=== PATIENT | female | born 1990 | race Caucasian/White ===

== ENCOUNTER 2021-06-06 17:07 | Emergency (ER) | payer MEDICAID ==
[~2021-06-06] VITALS: Ht 160 cm; Wt 65.0 kg
--- OUTSIDE RECORDS SUMMARY | 2021-06-06 17:13 | XMS REPORT | Clinical Summary ---
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 As needed for pain Active tiZANidine (ZANAFLEX) 4 Take 1 tablet 20 tablet 0 06/28/201 MG tablet (4 mg total) 6 by mouth every 6 (six) hours as needed (as needed for muscle spasm or pain). Active Problems Not on file Social History Date Tobacco Use Types Packs/Day Years Used Current Every Day Smoker Cigarettes 1 Tobacco Cessation: Ready to Quit: Yes Comments Alcohol Use Standard Drinks/Week occasional Yes 0 (1 standard drink = 0.6 o z pure alcohol) Sex Assigned at Date Recorded Not on file Last Filed Vital Signs Reading Time Taken Comments Vital Sign 106/53 06/29/2016 12:28 AM CDT Blood Pressure 77 06/29/2016 12:28 AM CDT Pulse 37.1 C (98.7 F) 06/28/2016 10:33 PM CDT Temperature 18 06/29/2016 12:28 AM CDT Respiratory Rate 96% 06/29/2016 12:28 AM CDT Oxygen Saturation - - Inhaled Oxygen Concentration 79.4 kg (175 lb) 06/28/2016 10:33 PM CDT Weight 160 cm (5' 3") 06/28/2016 10:33 PM CDT Height 31 06/28/2016 10:33 PM CDT Body Mass Index Plan of Treatment Health Maintenance Due Date Last Done Comments Td/Tdap# 1992 Tobacco Cessation 1992 Counseling # Cervical Cancer Screening 2013 via Pap Smear Influenza Vaccine (#1) 2021 Pneumococcal Vaccine: Aged Out No longer eligib le based on patient's age to Pediatrics (0 to 5 Years) complete this topic and At-Risk Patients (6 to 64 Years) Results Not on filefrom Last 3 Months Insurance Type Payer Benefit Subscriber ID Effective Phone Address Plan / Dates Group [place] ([place]) [place] [id number] 2016 [employer] -Present [facility] [id number] 20 ([place]) [facility] Angie Weiss Personal/F Self 1990 [address] [facility] (Home) [place] [address] Advance Directives For more information, please contact: [phone] Patient Support Dba Explanation Type Date Recorded Advance Directives and Living Will Power of Golf Cart Attendant
[2021-06-06] MEDS ORDERED: KETOROLAC 30 MG/ML VIAL IVP ONE (18:00)
--- NOTE | 2021-06-06 18:01 | ED Abdominal Pain ---
General Chief Complaint: Abdominal/GI Problems Stated Complaint: LOWER R ABD PAIN Nursing Triage Note: Pt ambulatory into ER from work with complaint of Lower R. Abdominal pain x9 days. Pt states that she was seen at [facility] yesterday for it and minimal was done. Pt states that she was told that he ER would be who would need to look at her appendix. Pt states that today pain is at a 7/10. Denies issues using bathroom. Source of Information: Patient Exam Limitations: No Limitations History of Present Illness Date Seen by Provider: Jun 06, 2021 Time Seen by Provider: 18:00 Initial Comments To ER with right lower quadrant abdominal pain x9 days. She rates the pain 7 out of 10. No nausea no vomiting no fever no chills. She has an IUD and saw [facility] last week and was told it looked normal. No vaginal discharge. Timing/Duration: 1 Week Severity/Quality: Moderate Location: RLQ Radiation: No Radiation Associated Symptoms: Denies Symptoms Allergies and Home Medications Allergies Coded Allergies: No Known Drug Allergies (Unverified , 06/06/21) Patient Home Medication List Home Medication List Reviewed: Yes Review of Systems Review of Systems Constitutional: see HPI EENTM: No Symptoms Reported Respiratory: No Symptoms Reported Cardiovascular: No Symptoms Reported Gastrointestinal: See HPI, Abdominal Pain Genitourinary: No Symptoms Reported Musculoskeletal: no symptoms reported Skin: no symptoms reported Psychiatric/Neurological: No Symptoms Reported Endocrine: No Symptoms Reported Hematologic/Lymphatic: No Symptoms Reported Past Eiwkazi-Ymtqmh-Nialku Hx Patient Social History Tobacco Use?: Yes Tobacco type used: Cigarettes Smoking Status: Current Everyday Smoker Use of E-Cig and/or Vaping dev: No Substance use?: Yes Substance type: Marijuana Substance frequency: Couple times a week Alcohol Use?: Yes Alcohol type: Beer, Hard Liquor Alcohol Frequency: Couple times a week Pt feels they are or have been: No Immunizations Up To Date Influenza Vaccine Up-to-Date: No; Not Current Physical Exam Vital Signs Vital Signs - First Documented 06/06/21 17:14 Temp 36.9 Pulse 78 Resp 16 B/P (MAP) 133/70 (91) Pulse Ox 98 O2 Delivery Room Air Capillary Refill : Less Than 3 Seconds Height/Weight/BMI Height: '" Weight: lbs. oz. kg; 25.00 BMI Method: General Appearance: WD/WN, no apparent distress Neck: non-tender, full range of motion Respiratory: normal breath sounds, no respiratory distress, no accessory muscle use Cardiovascular: regular rate, rhythm, no murmur Gastrointestinal: normal bowel sounds, soft, tenderness Extremities: normal range of motion, non-tender Neurologic/Psychiatric: alert, normal mood/affect, oriented x 3 Skin: normal color, warm/dry Progress/Results/Core Measures Results/Orders Lab Results Laboratory Tests Test 06/06/21 18:18 06/06/21 19:08 Range/Units White Blood Count 6.7 4.3-11.0 10^3/uL Red Blood Count 4.06 3.80-5.11 10^6/uL Hemoglobin 12.3 11.5-16.0 g/dL Hematocrit 37 35-52 % Mean Corpuscular Volume 92 80-99 fL Mean Corpuscular Hemoglobin 30 25-34 pg Mean Corpuscular Hemoglobin Concent 33 32-36 g/dL Red Cell Distribution Width 13.7 10.0-14.5 % Platelet Count 248 130-400 10^3/uL Mean Platelet Volume 9.0 9.0-12.2 fL Immature Granulocyte % (Auto) 0 % Neutrophils (%) (Auto) 51 42-75 % Lymphocytes (%) (Auto) 40 12-44 % Monocytes (%) (Auto) 7 0-12 % Eosinophils (%) (Auto) 2 0-10 % Basophils (%) (Auto) 0 0-10 % Neutrophils # (Auto) 3.4 1.8-7.8 10^3/uL Lymphocytes # (Auto) 2.7 1.0-4.0 10^3/uL Monocytes # (Auto) 0.5 0.0-1.0 10^3/uL Eosinophils # (Auto) 0.1 0.0-0.3 10^3/uL Basophils # (Auto) 0.0 0.0-0.1 10^3/uL Immature Granulocyte # (Auto) 0.0 0.0-0.1 10^3/uL Sodium Level 141 135-145 MMOL/L Potassium Level 3.7 3.6-5.0 MMOL/L Chloride Level 110 H 98-107 MMOL/L Carbon Dioxide Level 20 L 21-32 MMOL/L Anion Gap 11 5-14 MMOL/L Blood Urea Nitrogen 13 7-18 MG/DL Creatinine 0.80 0.60-1.30 MG/DL Estimat Glomerular Filtration Rate 85 BUN/Creatinine Ratio 16 Glucose Level 72 70-105 MG/DL Calcium Level 8.7 8.5-10.1 MG/DL Corrected Calcium 9.1 8.5-10.1 MG/DL Total Bilirubin 0.4 0.1-1.0 MG/DL Aspartate Amino Transf (AST/SGOT) 14 5-34 U/L Alanine Aminotransferase (ALT/SGPT) 18 0-55 U/L Alkaline Phosphatase 49 40-136 U/L C-Reactive Protein High Sensitivity 0.14 0.00-0.50 MG/DL Total Protein 5.6 L 6.4-8.2 GM/DL Albumin 3.5 3.2-4.5 GM/DL Serum Test, Qualitative NEGATIVE NEGATIVE Urine Color YELLOW Urine Clarity CLEAR Urine pH 6.0 5-9 Urine Specific [place] >=1.030 1.016-1.022 Urine Protein TRACE H NEGATIVE Urine Glucose (UA) NEGATIVE NEGATIVE Urine Ketones NEGATIVE NEGATIVE Urine Nitrite NEGATIVE NEGATIVE Urine Bilirubin 1+ H NEGATIVE Urine Urobilinogen 1.0 < = 1.0 MG/DL Urine Leukocyte Esterase NEGATIVE NEGATIVE Urine RBC (Auto) NEGATIVE NEGATIVE Urine RBC NONE /HPF Urine WBC 5-10 H /HPF Urine Squamous Epithelial Cells 2-5 /HPF Urine Renal Epithelial Cells 0-2 /HPF Urine Crystals NONE /LPF Urine Bacteria MODERATE H /HPF Urine Casts NONE /LPF Urine Mucus NEGATIVE /LPF Urine Culture Indicated YES My Orders Orders - DENISE TAYLOR [employer] Cbc With Automated Diff (06/06/21 17:59) Hs C Reactive Protein (06/06/21 17:59) Comprehensive Metabolic Panel (06/06/21 17:59) Ua Culture If Indicated (06/06/21 17:59) Ed Iv/Invasive Line Start (06/06/21 17:59) Ct Abd/Pelv W (Appendicitis) (06/06/21 17:59) Ketorolac Injection (Toradol Injection) (06/06/21 18:00) Hcg,Qualitative Serum (06/06/21 18:45) Iohexol Injection (Omnipaque 350 Mg/Ml 1 (06/06/21 19:30) Received Contrast (Hold Metformin- Contr (06/06/21 19:30) Ns (Ivpb) (Sodium Chloride 0.9% Ivpb Bag (06/06/21 19:30) Urine Culture (06/06/21 19:08) Medications Given in ED Current Medications Medications Dose Ordered Sig/Sanjay Route Start Time Stop Time Status Last Admin Dose Admin Ketorolac Tromethamine 15 mg ONCE ONCE IVP 06/06/21 18:00 06/06/21 18:01 DC 06/06/21 18:18 15 MG Vital Signs/I&O 06/06/21 17:14 Temp 36.9 Pulse 78 Resp 16 B/P (MAP) 133/70 (91) Pulse Ox 98 O2 Delivery Room Air Blood Pressure Mean: 91 Departure Impression Primary Impression: Urinary tract infection Disposition: HOME, SELF-CARE Condition: Stable Departure-Patient Inst. Decision time for Depature: 00:00 Referrals: NO,LOCAL PHYSICIAN (PCP/Family) Primary Care Physician Patient Instructions: Urinary Tract Infection, Adult (DC) Scripts Sulfamethoxazole/Trimethoprim (Bactrim Ds Tablet) 1 Each Tablet 1 EACH PO BID, #10 TAB Prov: DENISE TAYLOR APRN 06/06/21 DENISE TAYLOR APRN Jun 06, 2021 18:01
[2021-06-06 18:24] LABS: BASOPHILS % (AUTO) 0 % (0-10); EOSINOPHILS # (AUTO) 0.1 10^3/uL (0.0-0.3); EOSINOPHILS % (AUTO) 2 % (0-10); HEMATOCRIT 37 % (35-52); HEMOGLOBIN 12.3 g/dL (11.5-16.0); LYMPHOCYTES # (AUTO) 2.7 10^3/uL (1.0-4.0); LYMPHOCYTES % (AUTO) 40 % (12-44); MEAN CORPUSCULAR HEMOGLOBIN 30 pg (25-34); MEAN CORPUSCULAR HGB CONC 33 g/dL (32-36); MEAN CORPUSCULAR VOLUME 92 fL (80-99); MONOCYTES # (AUTO) 0.5 10^3/uL (0.0-1.0); MONOCYTES % (AUTO) 7 % (0-12); NEUTROPHILS # (AUTO) 3.4 10^3/uL (1.8-7.8); NEUTROPHILS % (AUTO) 51 % (42-75); PLATELET COUNT 248 10^3/uL (130-400); WHITE BLOOD COUNT 6.7 10^3/uL (4.3-11.0)
[2021-06-06 18:35] LABS: ALBUMIN 3.5 GM/DL (3.2-4.5); POTASSIUM 3.7 MMOL/L (3.6-5.0)
[2021-06-06 18:37] LABS: CALCIUM 8.7 MG/DL (8.5-10.1)
[2021-06-06 18:38] LABS: TOTAL PROTEIN 5.6 GM/DL (6.4-8.2)
[2021-06-06 18:39] LABS: BILIRUBIN,TOTAL 0.4 MG/DL (0.1-1.0)
[2021-06-06 18:41] LABS: CREATININE SERUM 0.8 MG/DL (0.60-1.30)
[2021-06-06 19:14] LABS: BILIRUBIN,URINE 1+ (NEGATIVE); CLARITY,URINE CLEAR; COLOR,URINE YELLOW; GLUCOSE, URINE (UA) NEGATIVE (NEGATIVE); KETONES,URINE NEGATIVE (NEGATIVE); LEUKOCYTE ESTERASE ,URINE NEGATIVE (NEGATIVE); NITRITE,URINE NEGATIVE (NEGATIVE); PROTEIN,URINE TRACE (NEGATIVE)
[2021-06-06 19:22] LABS: BACTERIA,URINE MODERATE /HPF; RENAL EPITHELIAL CELLS,URINE 0-2 /HPF
--- NOTE | 2021-06-06 19:26 | Diagnostic Imaging Report ---
PROCEDURE: CT abdomen and pelvis with contrast, rule out appendicitis. TECHNIQUE: Multiple contiguous axial images were obtained through the abdomen and pelvis after the administration of intravenous contrast. All CT scans use one or more of the following dose optimizing techniques: automated exposure control, MA and/or KvP adjustment based on patient size and exam type or iterative reconstruction. INDICATION: Right lower quadrant pain. FINDINGS: The heart size is normal. The lung bases are clear. The liver is normal in size without focal lesions. Gallbladder is unremarkable. There is no biliary ductal dilatation. Spleen is normal. The pancreas, adrenal glands and kidneys are unremarkable. The aorta is nonaneurysmal. The bowel gas pattern is nonspecific. There is no free air. There is no ascites. There are no focal inflammatory changes. The appendix is normal. There is an IUD in the uterus. Bladder is normal. There is no pelvic mass, adenopathy or free fluid. The osseous structures are unremarkable. IMPRESSION: 1. No acute abnormality in the abdomen or pelvis. Specifically, the appendix is normal. 2. There is an IUD in the uterus. Dictated by: Dictated on workstation # [id number]
[2021-06-06] MEDS ORDERED: SULF1TAB38 PO (19:28)
[2021-06-06] MEDS ORDERED: HOLD METFORMIN - RECEIVED CONTRAST 20 ML VIAL IV SCH (19:30)
[2021-06-06] MEDS ORDERED: IOHEXOL 350 MG/ML 100 ML (OMNIPAQUE 350) VIAL IV ONE (19:30)
[2021-06-06] MEDS ORDERED: NS 100 ML (IVPB) BAG IV ONE (19:30)
[2021-06-06] MEDS ORDERED: TRIM/SULFAMETH 160/800 (SEPTRA DS) TAB PO ONE (19:45)
[2021-06-06 20:37] VITALS: BP 131/70
== END 2021-06-06 19:40 | disposition home or self-care (01) ==
LOC: ER 17:10
DX: N39.0 Urinary tract infection, site not specified (principal); F17.210 Nicotine dependence, cigarettes, uncomplicated
CPT/HCPCS: 36415; 74177; 80053; 81000; 84703; 85025; 86141; 87088

== ENCOUNTER 2021-11-09 10:14 | Emergency (ER) | payer MEDICAID ==
[~2021-11-09] VITALS: Ht 160 cm; Wt 81.6 kg
[~2021-11-09 10:14] MED LIST: SULF1TAB38 PO
--- NOTE | 2021-11-09 10:35 | ED GU-Female ---
General Stated Complaint: GROIN SWELLING Source: patient Exam Limitations: no limitations History of Present Illness Date Seen by Provider: Nov 09, 2021 Time Seen by Provider: 10:19 Initial Comments Patient presents to the ER by private conveyance from home with chief complaint of noticing this morning a painful red swollen hot nodule on her inner labia on the left side. No drainage. No fevers chills nausea vomiting dysuria or discharge. She is never had this before. She trims with scissors and does not shave. Allergies and Home Medications Allergies Coded Allergies: No Known Drug Allergies (Unverified , 06/06/21) Patient Home Medication List Home Medication List Reviewed: Yes Sulfamethoxazole/Trimethoprim (Bactrim Ds Tablet) 1 Each Tablet, 1 EACH PO BID Prescribed by: DENISE TAYLOR on 06/06/211927 Sulfamethoxazole/Trimethoprim (Bactrim Ds Tablet) 1 Each Tablet, 1 EACH PO BID Prescribed by: MARINA MASSEY on 11/09/21 1042 Review of Systems Review of Systems Constitutional: No chills, No diaphoresis EENTM: No ear pain, No eye pain Respiratory: No cough, No short of breath Cardiovascular: No chest pain, No edema Gastrointestinal: No abdominal pain, No nausea, No vomiting Genitourinary: see HPI All Other Systemes Reviewed Negative Unless Noted: Yes Past Icwzrdm-Bboxec-Bqchek Hx Patient Social History Tobacco Use?: No Use of E-Cig and/or Vaping dev: No Physical Exam Vital Signs Vital Signs - First Documented 11/09/21 10:31 Pulse 100 Resp 18 B/P (MAP) 130/51 (77) Pulse Ox 98 Capillary Refill : Height, Weight, BMI Height: '" Weight: lbs. oz. kg; 25.00 BMI Method: General Appearance: WD/WN, no apparent distress HEENT: PERRL/EOMI, pharynx normal Neck: full range of motion, normal inspection Cardiovascular: normal peripheral pulses, regular rate, rhythm Respiratory: no respiratory distress, no accessory muscle use Pelvic: other (Left inner labia abscess with baker pointing approximately 1.5 cm diameter firm fluctuant) Procedures/Interventions I&D : Site: Left labia minora Blade Size: 25-gauge needle I & D Procedure: betadine prep (Chlorhexidine) Progress Surface disinfectant with chlorhexidine followed by a 1/2 inch 25-gauge needle with 0.25 cc of lidocaine and expressed about 1.5 cc of thin purulent material. Patient tolerated the procedure. Progress/Results/Core Measures Suspected Sepsis SIRS Temperature: Pulse: Respiratory Rate: Blood Pressure / Mean: Results/Orders Vital Signs/I&O 11/09/21 10:31 Pulse 100 Resp 18 B/P (MAP) 130/51 (77) Pulse Ox 98 Capillary Refill : Progress Note : Time: 10:42 Progress Note Patient states she has some chronic cyst that swell up and drain on her shoulder and back likely epidermal inclusion cyst. We will refer her on to general surgery or her primary care doctor to have these looked at for removal. Departure Impression Primary Impression: Abscess of left genital labia Disposition: HOME, SELF-CARE Condition: Stable Departure-Patient Inst. Decision time for Depature: 10:40 Referrals: [facility] [place] Primary Care Physician KUN BLAKE DO Patient Instructions: Boil (DC) Add. Discharge Instructions: Keep the wound clean regular soap and water. Warm moist compresses for pain. automatic line set up mechanic the Bactrim and take 1 tablet twice a day for the next week to reduce recurrence of infection. Follow-up with your primary care doctor for reevaluation as necessary. You may follow-up with a general surgeon to discuss the chronic cyst on your shoulder. Scripts Sulfamethoxazole/Trimethoprim (Bactrim Ds Tablet) 1 Each Tablet 1 EACH PO BID for 7 Days, #14 TAB 0 Refills Prov: MARINA MASSEY 11/09/21 Copy Copies To 1: KUN BLAKE DO MARINA MASSEY Nov 09, 2021 10:35
[2021-11-09] MEDS ORDERED: SULF1TAB38 PO (10:42)
[2021-11-09 10:47] VITALS: BP 132/47
== END 2021-11-09 10:47 | disposition home or self-care (01) ==
LOC: EDUNIT# 10:14 → ER 10:15
DX: N76.4 Abscess of vulva (principal)
CPT/HCPCS: 56405

== ENCOUNTER 2022-02-03 09:25 | Emergency (ER) | payer MEDICAID ==
[~2022-02-03] VITALS: Ht 160 cm; Wt 81.6 kg
[2022-02-03] MEDS ORDERED: LACTATED RINGERS 1,000 ML IV ONE (10:00)
[2022-02-03 10:07] LABS: BASOPHILS # (AUTO) 0.1 10^3/uL (0.0-0.1); BASOPHILS % (AUTO) 1 % (0-10); EOSINOPHILS # (AUTO) 0.2 10^3/uL (0.0-0.3); EOSINOPHILS % (AUTO) 3 % (0-10); HEMATOCRIT 42 % (35-52); HEMOGLOBIN 13.8 g/dL (11.5-16.0); LYMPHOCYTES # (AUTO) 2.2 10^3/uL (1.0-4.0); LYMPHOCYTES % (AUTO) 34 % (12-44); MEAN CORPUSCULAR HEMOGLOBIN 30 pg (25-34); MEAN CORPUSCULAR HGB CONC 33 g/dL (32-36); MEAN CORPUSCULAR VOLUME 91 fL (80-99); MEAN PLATELET VOLUME 9.1 fL (9.0-12.2); MONOCYTES # (AUTO) 0.4 10^3/uL (0.0-1.0); MONOCYTES % (AUTO) 6 % (0-12); NEUTROPHILS # (AUTO) 3.7 10^3/uL (1.8-7.8); NEUTROPHILS % (AUTO) 56 % (42-75); PLATELET COUNT 267 10^3/uL (130-400); WHITE BLOOD COUNT 6.6 10^3/uL (4.3-11.0)
[2022-02-03 10:11] LABS: ALBUMIN 4.2 GM/DL (3.2-4.5); POTASSIUM 4.1 MMOL/L (3.6-5.0)
[2022-02-03 10:13] LABS: CALCIUM 8.8 MG/DL (8.5-10.1)
[2022-02-03 10:14] LABS: TOTAL PROTEIN 6.8 GM/DL (6.4-8.2)
--- NOTE | 2022-02-03 10:14 | ED Abdominal Pain ---
General Chief Complaint: Fever-Adult/Adol Stated Complaint: DIZZY - ABD PAIN - FEVER Nursing Triage Note: diagnosed with h pilori on the 6th sx not improving, now having fever and worsening cramping. Source of Information: Patient Exam Limitations: No Limitations History of Present Illness Date Seen by Provider: Feb 03, 2022 Time Seen by Provider: 09:49 Initial Comments Patient to the ER by private conveyance with chief complaint of a month of intermittent abdominal pain bloating distention especially after eating. Today she is having intractable nausea, unable to take her antacids and 8 out of 10 epigastric and right upper quadrant abdominal pain. She is not having the bloating. Last time she ate was last night. She was seen at [facility] and given a test for H. pylori which was positive. They put her on clarithromycin, metronidazole and omeprazole which she has been taking for the past couple days until today. She does not have anything for nausea. She had no fevers or chills. No abdominal surgeries or scopes. She was told when she was younger she has a history of irritable bowel primarily constipation. The loose stool this morning was unusual for her. She is only a rare drinker and does not had anything recently. No history of pancreatitis. Allergies and Home Medications Allergies Coded Allergies: No Known Drug Allergies (Unverified , 06/06/21) Patient Home Medication List Home Medication List Reviewed: Yes Sulfamethoxazole/Trimethoprim (Bactrim Ds Tablet) 1 Each Tablet, 1 EACH PO BID Prescribed by: DENISE TAYLOR on 06/06/211927 Sulfamethoxazole/Trimethoprim (Bactrim Ds Tablet) 1 Each Tablet, 1 EACH PO BID Prescribed by: MARINA MASSEY on 11/09/21 1042 Review of Systems Review of Systems Constitutional: No chills, No diaphoresis EENTM: No Blurred Vision, No Double Vision Respiratory: Denies Cough, Denies Shortness of Air Cardiovascular: Denies Chest Pain, Denies Lightheadedness Gastrointestinal: Denies Constipated; Diarrhea, Nausea, Poor Appetite, Poor Fluid Intake Genitourinary: Denies Burning, Denies Discharge Musculoskeletal: No back pain, No joint pain All Other Systems Reviewed Negative Unless Noted: Yes Past Bsylqxc-Fhqpck-Osgtrj Hx Patient Social History Tobacco Use?: Yes Tobacco type used: Cigarettes Smoking Status: Current Everyday Smoker Substance use?: No Alcohol Use?: Yes Alcohol Frequency: Rarely Pt feels they are or have been: No Immunizations Up To Date Influenza Vaccine Up-to-Date: No; Not Current First/Initial COVID19 Vaccinat: none Physical Exam Vital Signs Vital Signs - First Documented 02/03/22 09:40 Temp 36.7 Pulse 80 Resp 18 B/P (MAP) 110/82 (91) Pulse Ox 99 O2 Delivery Room Air Capillary Refill : Height/Weight/BMI Height: '" Weight: lbs. oz. kg; 31.00 BMI Method: General Appearance: WD/WN, mild distress HEENT: PERRL/EOMI, pharynx normal Neck: full range of motion, supple, normal inspection Respiratory: lungs clear, normal breath sounds, no respiratory distress, no accessory muscle use Cardiovascular: normal peripheral pulses, regular rate, rhythm Peripheral Pulses: 2+ Radial Pulses (R), 2+ Radial Pulses (L) Gastrointestinal: normal bowel sounds (Active), no organomegaly, guarding (Epigastric and right upper quadrant); No rebound; tenderness (Right upper quadrant Muniz sign and epigastric exquisite tenderness to palpation without mass.), other (Negative for Rovsing sign or McBurney's point tenderness. No mesenteric signs) Neurologic/Psychiatric: alert, normal mood/affect, oriented x 3 Skin: normal color, warm/dry Progress/Results/Core Measures Results/Orders Lab Results Laboratory Tests Test 02/03/22 09:49 02/03/22 09:59 02/03/22 10:10 Range/Units White Blood Count 6.6 4.3-11.0 10^3/uL Red Blood Count 4.60 3.80-5.11 10^6/uL Hemoglobin 13.8 11.5-16.0 g/dL Hematocrit 42 35-52 % Mean Corpuscular Volume 91 80-99 fL Mean Corpuscular Hemoglobin 30 25-34 pg Mean Corpuscular Hemoglobin Concent 33 32-36 g/dL Red Cell Distribution Width 13.2 10.0-14.5 % Platelet Count 267 130-400 10^3/uL Mean Platelet Volume 9.1 9.0-12.2 fL Immature Granulocyte % (Auto) 0 % Neutrophils (%) (Auto) 56 42-75 % Lymphocytes (%) (Auto) 34 12-44 % Monocytes (%) (Auto) 6 0-12 % Eosinophils (%) (Auto) 3 0-10 % Basophils (%) (Auto) 1 0-10 % Neutrophils # (Auto) 3.7 1.8-7.8 10^3/uL Lymphocytes # (Auto) 2.2 1.0-4.0 10^3/uL Monocytes # (Auto) 0.4 0.0-1.0 10^3/uL Eosinophils # (Auto) 0.2 0.0-0.3 10^3/uL Basophils # (Auto) 0.1 0.0-0.1 10^3/uL Immature Granulocyte # (Auto) 0.0 0.0-0.1 10^3/uL Sodium Level 138 135-145 MMOL/L Potassium Level 4.1 3.6-5.0 MMOL/L Chloride Level 109 H 98-107 MMOL/L Carbon Dioxide Level 20 L 21-32 MMOL/L Anion Gap 9 5-14 MMOL/L Blood Urea Nitrogen 9 7-18 MG/DL Creatinine 0.87 0.60-1.30 MG/DL Estimat Glomerular Filtration Rate 92 BUN/Creatinine Ratio 10 Glucose Level 103 70-105 MG/DL Calcium Level 8.8 8.5-10.1 MG/DL Corrected Calcium 8.6 8.5-10.1 MG/DL Total Bilirubin 0.6 0.1-1.0 MG/DL Aspartate Amino Transf (AST/SGOT) 15 5-34 U/L Alanine Aminotransferase (ALT/SGPT) 19 0-55 U/L Alkaline Phosphatase 68 40-136 U/L Total Protein 6.8 6.4-8.2 GM/DL Albumin 4.2 3.2-4.5 GM/DL Lipase 14 8-78 U/L SARS-CoV-2 RNA (RT-PCR) Not Detected Not Detecte Urine Color YELLOW Urine Clarity CLEAR Urine pH 7.5 5-9 Urine Specific [place] 1.010 L 1.016-1.022 Urine Protein NEGATIVE NEGATIVE Urine Glucose (UA) NEGATIVE NEGATIVE Urine Ketones NEGATIVE NEGATIVE Urine Nitrite NEGATIVE NEGATIVE Urine Bilirubin NEGATIVE NEGATIVE Urine Urobilinogen 0.2 < = 1.0 MG/DL Urine Leukocyte Esterase NEGATIVE NEGATIVE Urine RBC (Auto) NEGATIVE NEGATIVE Urine RBC NONE /HPF Urine WBC NONE /HPF Urine Squamous Epithelial Cells 5-10 /HPF Urine Crystals NONE /LPF Urine Bacteria TRACE /HPF Urine Casts NONE /LPF Urine Mucus NEGATIVE /LPF Urine Culture Indicated NO My Orders Orders - MARINA MASSEY Ed Iv/Invasive Line Start (02/03/22 10:00) Lactated Ringers (Lr 1000 Ml Iv Solution (02/03/22 10:00) Cbc With Automated Diff (02/03/22 10:00) Comprehensive Metabolic Panel (02/03/22 10:00) Lipase (02/03/22 10:00) Covid 19 Inhouse Test (02/03/22 10:00) Ua Culture If Indicated (02/03/22 10:00) Urine Bedside (02/03/22 10:00) Fentanyl Inj (Sublimaze Injection) (02/03/22 10:15) Ondansetron Injection (Zofran Injectio (02/03/22 10:15) Pantoprazole Injection (Protonix Injecti (02/03/22 10:15) Us Gallbladder [id number] (02/03/22 10:08) Ed Iv/Invasive Line Start (02/03/22 10:08) Medications Given in ED Current Medications Medications Dose Ordered Sig/Sanjay Route Start Time Stop Time Status Last Admin Dose Admin Fentanyl Citrate 25 mcg ONCE ONCE IVP 02/03/22 10:15 02/03/22 10:16 DC 02/03/22 10:34 25 MCG Lactated Ringer's 1,000 ml @ 0 mls/hr Q0M ONCE IV 02/03/22 10:00 02/03/22 10:03 DC 02/03/22 10:34 1,000 MLS/HR Ondansetron HCl 8 mg ONCE ONCE IVP 02/03/22 10:15 02/03/22 10:16 DC 02/03/22 10:34 8 MG Pantoprazole 40 mg ONCE ONCE IV 02/03/22 10:15 02/03/22 10:16 DC 02/03/22 10:34 40 MG Vital Signs/I&O 02/03/22 09:40 Temp 36.7 Pulse 80 Resp 18 B/P (MAP) 110/82 (91) Pulse Ox 99 O2 Delivery Room Air Blood Pressure Mean: 91 Progress Progress Note #1: Time: 10:13 Progress Note Concern given her history that she could have some biliary disease. Certainly GERD or gastritis is possible. The recent initiation of clarithromycin and metronidazole could have led to upset stomach and worsening nausea as well as the diarrhea. She does not describe what sounds like C. difficile colitis and does not have colitis or mesenteric signs. We will start with an ultrasound of her gallbladder, labs including a lipase. 25 mcg of fentanyl and Zofran for her discomfort. Pantoprazole 40 mg. A liter of LR. Her vital signs are aseptic Progress Note #2: Time: 11:52 Progress Note The patient's pain is significantly improved with 25 mcg of fentanyl. She still having some burning reflux over going to give her some Maalox. We will put her out on Carafate, continue the omeprazole, continue the antibiotics with food and follow-up with Dr. GOMES, general surgery to help manage symptoms and possible EGD. Patient is okay with this plan. Diagnostic Imaging Diagonstic Imaging: Ultrasound Plain Films/CT/US/NM/MRI: abdomen (gb) Comments [facility]. [place], [place] NAME: DESI COLINDRES [facility] REC#: [id number] PT STATUS: REG ER : 1990 PHYSICIAN: MARINA MASSEY MD ADMIT DATE: 02/03/22/ER Draft Date of Exam:02/03/22 US GALLBLADDER [id number] PROCEDURE: US Gallbladder. TECHNIQUE: Multiple real-time grayscale images were obtained over the right upper quadrant in various projections. INDICATION: Right upper quadrant and epigastric pain. FINDINGS: Liver is normal in size 16 cm. The portal vein is patent and shows normal direction of flow. No discrete liver mass is detected. Gallbladder is without stones or sludge. No wall thickening or biliary ductal dilatation is seen. Pancreas unremarkable. Aorta is nonaneurysmal. IVC is patent. Right kidney is without calculi or hydronephrosis. There is no ascites. IMPRESSION: Unremarkable gallbladder ultrasound. Dictated on workstation # [id number] Dict: 02/03/22 1103 Trans: 02/03/22 1104 [id number] Interpreted by: NELSON ISABEL MD Electronically signed by: Reviewed: Reviewed by Me Departure Impression Primary Impression: Gastritis Qualified Codes: K29.00 - Acute gastritis without bleeding Additional Impressions: GERD (gastroesophageal reflux disease) Qualified Codes: K21.00 - Gastro-esophageal reflux disease with esophagitis, without bleeding History of Helicobacter pylori infection Disposition: 01 HOME, SELF-CARE Condition: Stable Departure-Patient Inst. Decision time for Depature: 11:53 Referrals: [facility] (PCP/Family) Primary Care Physician MOHIT GOMES MD Patient Instructions: Gastritis (DC), Acid Reflux and GERD in Adults (DC) Add. Discharge Instructions: Make sure you are eating something with the antibiotics and try and continue them to completion. Avoid spicy or greasy foods for now. Avoid NSAIDs such as ibuprofen, Aleve, naproxen, Advil etc. Tylenol 1000 mg every 8 hours as necessary for general pain. Tums, Maalox, Mylanta, Gaviscon, Rolaids, etc. as needed for stomach pain and reflux. If you have nausea you may take 1 or 2 tablets of Zofran every 6 hours as needed. Start the Carafate 1 tablet half an hour before meals and at bedtime for the next 2 weeks. This will help protect the lining of your stomach and esophagus so it can heal. Continue taking the omeprazole as prescribed. Follow-up in the next [address] GOMES, general surgery to discuss your gastritis and whether endoscopy or other management is necessary. Keep your follow-up appointments with your primary care provider. Return to the ER for intractable symptoms such as nausea, pain or high fever. All discharge instructions reviewed with patient and/or family. Voiced understanding. Scripts Sucralfate (Carafate) 1 Gram Tablet 1 GM PO QIDACHS for 14 Days, #56 TAB 0 Refills Prov: MARINA MASSEY 02/03/22 Ondansetron (Ondansetron Odt) 4 Mg Tab.rapdis 4 MG PO Q6H PRN for NAUSEA/VOMITING, #8 TAB 0 Refills Prov: MARINA MASSEY 02/03/22 Work/School Note: Work Release Form Date Seen in the Emergency Department: Feb 03, 2022 Return to Work: Feb 04, 2022 Restrictions: No Restrictions Copy Copies To 1: MOHIT GOMES MD, TITUS J Feb 03, 2022 10:14
[2022-02-03] MEDS ORDERED: ONDANSETRON 4 MG/2 ML (SDV) Z0FRAN IVP ONE (10:15)
[2022-02-03] MEDS ORDERED: PANTOPRAZOLE 40 MG (PROTONIX) VIAL IV ONE (10:15)
[2022-02-03] MEDS ORDERED: fentaNYL INJ 100 MCG/2 ML AMP IVP ONE (10:15)
[2022-02-03 10:16] LABS: BILIRUBIN,TOTAL 0.6 MG/DL (0.1-1.0)
[2022-02-03 10:17] LABS: BILIRUBIN,URINE NEGATIVE (NEGATIVE); CLARITY,URINE CLEAR; COLOR,URINE YELLOW; GLUCOSE, URINE (UA) NEGATIVE (NEGATIVE); KETONES,URINE NEGATIVE (NEGATIVE); LEUKOCYTE ESTERASE ,URINE NEGATIVE (NEGATIVE); NITRITE,URINE NEGATIVE (NEGATIVE); PH,URINE 7.5 (5-9); PROTEIN,URINE NEGATIVE (NEGATIVE)
[2022-02-03 10:17] LABS: CREATININE SERUM 0.87 MG/DL (0.60-1.30)
[2022-02-03 10:33] LABS: BACTERIA,URINE TRACE /HPF
--- NOTE | 2022-02-03 11:05 | Diagnostic Imaging Report ---
PROCEDURE: US Gallbladder. TECHNIQUE: Multiple real-time grayscale images were obtained over the right upper quadrant in various projections. INDICATION: Right upper quadrant and epigastric pain. FINDINGS: Liver is normal in size 16 cm. The portal vein is patent and shows normal direction of flow. No discrete liver mass is detected. Gallbladder is without stones or sludge. No wall thickening or biliary ductal dilatation is seen. Pancreas unremarkable. Aorta is nonaneurysmal. IVC is patent. Right kidney is without calculi or hydronephrosis. There is no ascites. IMPRESSION: Unremarkable gallbladder ultrasound. Dictated by: Dictated on workstation # [id number]
[2022-02-03] MEDS ORDERED: SUCR1TAB36 PO (11:55)
[2022-02-03] MEDS ORDERED: ONDA4TAB11 PO (11:55)
[2022-02-03] MEDS ORDERED: ANTACID SUSP 30 ML UDC (MYLANTA) PO ONE (12:00)
[2022-02-03 12:16] VITALS: BP 110/73
== END 2022-02-03 12:17 | disposition home or self-care (01) ==
LOC: EDUNIT# 09:25 → ER 09:27
DX: K29.00 Acute gastritis without bleeding (principal); K21.00 Gastro-esophageal reflux disease with esophagitis, without bleeding; F17.210 Nicotine dependence, cigarettes, uncomplicated; Z86.19 Personal history of other infectious and parasitic diseases; Z20.822 Contact with and (suspected) exposure to COVID-19; Z79.899 Other long term (current) drug therapy
CPT/HCPCS: 36415; 76705; 80053; 81000; 83690; 84703; 85025; 87636

== ENCOUNTER 2022-02-10 08:04 | Emergency (ER) | payer MEDICAID ==
[~2022-02-10] VITALS: Ht 165 cm; Wt 75.0 kg
[~2022-02-10 08:04] MED LIST changes: +ONDA4TAB11 PO; +SUCR1TAB36 PO
[2022-02-10 08:10] VITALS: BP 125/68
--- NOTE | 2022-02-10 09:00 | Diagnostic Imaging Report ---
INDICATION: Fall, pain EXAMINATION: Left ankle 02/10/2022 FINDINGS: 3 views of the ankle. There is an osseous fragment adjacent to the dorsum of the navicular which appears well corticated and chronic in nature. There are no fractures or dislocations. The ankle mortise and talar dome intact. IMPRESSION: 1. Chronic findings. No acute osseous abnormality. Dictated by: Dictated on workstation # [id number]
--- NOTE | 2022-02-10 09:01 | Diagnostic Imaging Report ---
INDICATION: Foot pain EXAMINATION: Left foot 02/10/2022 FINDINGS: 3 views of the foot. Chronic appearing osseous fragment noted adjacent to the dorsum of the navicular. There are no fractures or dislocations. The joint spaces appear maintained. IMPRESSION: 1. No acute osseous abnormality. Dictated by: Dictated on workstation # [id number]
--- NOTE | 2022-02-10 09:52 | ED Lower Extremity ---
General Chief Complaint: Orthopedic Problems Stated Complaint: FALL - L FOOT PAIN / NUMBNESS Nursing Triage Note: pt reports walking dog last noc. reports falling and injurying left lateral foot and ankle. Source: patient Exam Limitations: no limitations History of Present Illness Date Seen by Provider: Feb 10, 2022 Time Seen by Provider: 08:38 Allergies and Home Medications Allergies Uncoded Allergies: pcn (Allergy, Unknown, 02/10/22) Patient Home Medication List Ondansetron (Ondansetron Odt) 4 Mg Tab.rapdis, 4 MG PO Q6H PRN for NAUSEA/VOMITING Prescribed by: MARINA MASSEY on 02/03/22 1155 Sucralfate (Carafate) 1 Gram Tablet, 1 GM PO QIDACHS Prescribed by: MARINA MASSEY on 02/03/22 1155 Sulfamethoxazole/Trimethoprim (Bactrim Ds Tablet) 1 Each Tablet, 1 EACH PO BID Prescribed by: DENISE TAYLOR on 06/06/21 1928 Sulfamethoxazole/Trimethoprim (Bactrim Ds Tablet) 1 Each Tablet, 1 EACH PO BID Prescribed by: MARINA MASSEY on 11/09/21 1042 Past Tfmhzwh-Bzsyeo-Dlfnmd Hx Patient Social History Tobacco Use?: Yes Tobacco type used: Cigarettes Smoking Status: Current Everyday Smoker Substance use?: Yes Substance type: Marijuana Pt feels they are or have been: No Immunizations Up To Date Influenza Vaccine Up-to-Date: No; Not Current First/Initial COVID19 Vaccinat: none Physical Exam Vital Signs Vital Signs - First Documented 02/10/22 08:10 Temp 36.4 Pulse 90 Resp 18 B/P (MAP) 125/68 (87) Pulse Ox 100 O2 Delivery Room Air Capillary Refill : Less Than 3 Seconds Height, Weight, BMI Height: '" Weight: lbs. oz. kg; 27.00 BMI Method: Progress/Results/Core Measures Results/Orders My Orders Orders - JACQUELINE MEYER MD Foot, Left, 3 Views (02/10/22 08:37) Ankle, Left, 3 Views (02/10/22 08:37) Vital Signs/I&O 02/10/22 08:10 Temp 36.4 Pulse 90 Resp 18 B/P (MAP) 125/68 (87) Pulse Ox 100 O2 Delivery Room Air Blood Pressure Mean: 79 Departure Impression Primary Impression: Left ankle sprain Qualified Codes: S93.402A - Sprain of unspecified ligament of left ankle, initial encounter Disposition: 01 HOME, SELF-CARE Condition: Stable Departure-Patient Inst. Decision time for Depature: 09:49 Referrals: [facility] (PCP/Family) Primary Care Physician Patient Instructions: Ankle Sprain (DC) Add. Discharge Instructions: Use crutches as needed if weightbearing is painful. Gradually increase level of activity as pain allows. Use a well supporting Velcro or lace up brace whenever active for the next 6 weeks to prevent recurrent injury. Elevation, icing in 20-minute intervals, compressive wrapping, and rest can help improve pain and swelling over the next 1 to 2 days. You may use ibuprofen up to 600 mg every 6 hours and/or Tylenol (acetaminophen) up to 1000 mg every 6 hours as needed for pain. Follow-up with your primary care provider if you are not healing as expected or you have any other questions or concerns. Return to the ER if you are worsening over the next few days despite following these instructions. All discharge instructions reviewed with patient and/or family. Voiced understanding. JACQUELINE MEYER MD Feb 10, 2022 09:52
== END 2022-02-10 09:55 | disposition home or self-care (01) ==
LOC: EDUNIT# 08:04 → ER 08:05
DX: S93.402A Sprain of unspecified ligament of left ankle, initial encounter (principal); F17.210 Nicotine dependence, cigarettes, uncomplicated; W19.XXXA Unspecified fall, initial encounter; Y93.K1 Activity, walking an animal
CPT/HCPCS: 73610; 73630

== ENCOUNTER 2022-03-04 07:59 | Emergency (ER) | payer MEDICAID ==
[~2022-03-04] VITALS: Ht 167.7 cm; Wt 83.9 kg
[2022-03-04 08:26] LABS: BILIRUBIN,URINE NEGATIVE (NEGATIVE); CLARITY,URINE CLEAR; COLOR,URINE YELLOW; GLUCOSE, URINE (UA) NEGATIVE (NEGATIVE); KETONES,URINE NEGATIVE (NEGATIVE); LEUKOCYTE ESTERASE ,URINE NEGATIVE (NEGATIVE); NITRITE,URINE NEGATIVE (NEGATIVE); PROTEIN,URINE NEGATIVE (NEGATIVE)
[2022-03-04 08:34] LABS: BACTERIA,URINE FEW /HPF; WBC,URINE 0-2 /HPF
[2022-03-04 08:35] LABS: AMORPHOUS SEDIMENT,UR FEW AMOR URATES /LPF
[2022-03-04 08:52] LABS: BASOPHILS # (AUTO) 0.1 10^3/uL (0.0-0.1); BASOPHILS % (AUTO) 1 % (0-10); EOSINOPHILS # (AUTO) 0.2 10^3/uL (0.0-0.3); EOSINOPHILS % (AUTO) 3 % (0-10); HEMATOCRIT 41 % (35-52); HEMOGLOBIN 13.7 g/dL (11.5-16.0); LYMPHOCYTES # (AUTO) 2.4 10^3/uL (1.0-4.0); LYMPHOCYTES % (AUTO) 35 % (12-44); MEAN CORPUSCULAR HEMOGLOBIN 30 pg (25-34); MEAN CORPUSCULAR HGB CONC 33 g/dL (32-36); MEAN CORPUSCULAR VOLUME 91 fL (80-99); MEAN PLATELET VOLUME 9.4 fL (9.0-12.2); MONOCYTES # (AUTO) 0.4 10^3/uL (0.0-1.0); MONOCYTES % (AUTO) 5 % (0-12); NEUTROPHILS % (AUTO) 57 % (42-75); PLATELET COUNT 271 10^3/uL (130-400)
[2022-03-04 09:05] LABS: ALBUMIN 4.3 GM/DL (3.2-4.5)
[2022-03-04 09:07] LABS: CALCIUM 9.2 MG/DL (8.5-10.1)
[2022-03-04 09:08] LABS: TOTAL PROTEIN 6.9 GM/DL (6.4-8.2)
[2022-03-04 09:10] LABS: BILIRUBIN,TOTAL 0.3 MG/DL (0.1-1.0)
[2022-03-04 09:12] LABS: CREATININE SERUM 0.8 MG/DL (0.60-1.30)
[2022-03-04 09:14] LABS: MAGNESIUM 1.9 MG/DL (1.6-2.4)
--- NOTE | 2022-03-04 10:44 | ED Abdominal Pain ---
General Chief Complaint: Abdominal/GI Problems Stated Complaint: ABD CRAMPING,N/V Nursing Triage Note: PT AMBULATE TO ROOM 07 WITH C/O N/V AND ABD PAIN SINCE LAST MONTH. PT REPORTS BEING SEEN AT [facility] X2 FOR THIS C/O AND GIVEN ABX, ZOFRAN, AND X3 OTHER MEDS. PT REPORTS SHE DOES NOT WANT TO GO BACK TO [facility] BECAUSE THE LAST TIME SHE WAS THERE THE NURSE "WAS A BITCH". PT STATES SHE WAS DX WITH Christiano PEPE. Source of Information: Patient, Old Records Exam Limitations: No Limitations History of Present Illness Date Seen by Provider: Mar 04, 2022 Time Seen by Provider: 08:06 Initial Comments This 31-year-old young lady presents to the emergency room with complaints of upper abdominal pain, nausea, and vomiting. She was tested for H. pylori in the outpatient setting in early January and was treated with metronidazole, clarithr omycin, and omeprazole. She had difficulty keeping the medications down and therefore does not feel like she finished an appropriate course. She was seen in the ER also on February 03 and prescribed Zofran. She continues to have nausea and vomiting after eating as well as abdominal cramping. She has tenderness in the right upper quadrant. Symptoms seem to be worse about 10 minutes after eating, especially greasy foods. She had a gallbladder ultrasound performed in the ER which was unremarkable. She has recently felt constipated. She reports associated weight loss. Patient admits to daily marijuana use for over a decade. Allergies and Home Medications Allergies Uncoded Allergies: pcn (Allergy, Unknown, 02/10/22) Patient Home Medication List Home Medication List Reviewed: Yes Bismuth Subsalicylate (Pepto-Bismol) 262 Mg Tablet, 262 MG PO QID Prescribed by: JACQUELINE MENJIVAR on 03/04/22 1050 Metronidazole (Metronidazole) 500 Mg Tablet, 250 MG PO QID Prescribed by: JACQUELINE MENJIVAR on 03/04/22 1050 Omeprazole (Omeprazole) 20 Mg Capsule.dr, 20 MG PO BID Prescribed by: JACQUELINE MENJIVAR on 03/04/22 105 Ondansetron (Ondansetron Odt) 4 Mg Tab.rapdis, 4 MG PO Q6H PRN for NAUSEA/VOMI TING Prescribed by: MARINA MASSEY on 02/03/22 1155 Ondansetron (Ondansetron Odt) 4 Mg Tab.rapdis, 4 MG SL Q4H PRN for NAUSEA/VOMITING Prescribed by: JACQUELINE MENJIVAR on 03/04/22 1050 Promethazine HCl (Promethazine Tablet) 25 Mg Tablet, 25 MG PO Q6H PRN for NAUSEA/VOMITING-2ND LINE Prescribed by: JACQUELINE MENJIVAR on 03/04/22 1050 Sucralfate (Carafate) 1 Gram Tablet, 1 GM PO QIDACHS Prescribed by: MARINA MASSEY on 02/03/22 1155 Sulfamethoxazole/Trimethoprim (Bactrim Ds Tablet) 1 Each Tablet, 1 EACH PO BID Prescribed by: DENISE TAYOLR on 06/06/21 192 Sulfamethoxazole/Trimethoprim (Bactrim Ds Tablet) 1 Each Tablet, 1 EACH PO BID Prescribed by: MARINA MASSEY on 11/09/21 1042 Tetracycline HCl (Tetracycline HCl) 500 Mg Capsule, 500 MG PO QID Prescribed by: JACQUELINE MENJIVAR on 03/04/22 1050 Review of Systems Review of Systems Constitutional: see HPI EENTM: No Symptoms Reported Respiratory: No Symptoms Reported Cardiovascular: No Symptoms Reported Gastrointestinal: See HPI Genitourinary: No Symptoms Reported Musculoskeletal: no symptoms reported Skin: no symptoms reported Psychiatric/Neurological: No Symptoms Reported Endocrine: No Symptoms Reported Hematologic/Lymphatic: No Symptoms Reported Past Jecjhza-Lxejtp-Psyrvj Hx Patient Social History Tobacco Use?: Yes Tobacco type used: Cigarettes Smoking Status: Current Everyday Smoker Smokeless Tobacco Frequency: Never a User Use of E-Cig and/or Vaping dev: No Use of E-Cig and/or Vaping Jeffrey: Never a User Substance use?: Yes Substance type: Marijuana Additional substance use comme: PT REPORTS SMOKING POT AT LEAST TWICE A DAY SINCE 15 YOA Substance frequency: Daily Alcohol Use?: Yes Alcohol Frequency: Rarely Pt feels they are or have been: No Immunizations Up To Date First/Initial COVID19 Vaccinat: none Past Medical History Surgeries: Yes Abdominal Respiratory: No Neurological: No Reproductive Disorders: Yes Female Reproductive Disorders: Ovarian Cyst Genitourinary: No Gastrointestinal: Yes (H. pylori) Musculoskeletal: No Endocrine: No HEENT: No Cancer: No Psychosocial: No Integumentary: No Physical Exam Vital Signs Vital Signs - First Documented 03/04/22 03/04/22 08:00 10:59 Temp 35.9 Pulse 88 Resp 18 B/P (MAP) 121/75 (90) Pulse Ox 100 O2 Delivery Room Air Capillary Refill : Less Than 3 Seconds Height/Weight/BMI Height: '" Weight: lbs. oz. 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, no motor/sensory deficits, alert, normal mood/affect, oriented x 3 Skin: normal color, warm/dry Progress/Results/Core Measures Results/Orders Lab Results Laboratory Tests Test 03/04/22 08:19 03/04/22 08:44 Range/Units Urine Color YELLOW Urine Clarity CLEAR Urine pH 6.0 5-9 Urine Specific [place] >=1.030 1.016-1.022 Urine Protein NEGATIVE NEGATIVE Urine Glucose (UA) NEGATIVE NEGATIVE Urine Ketones NEGATIVE NEGATIVE Urine Nitrite NEGATIVE NEGATIVE Urine Bilirubin NEGATIVE NEGATIVE Urine Urobilinogen 0.2 < = 1.0 MG/DL Urine Leukocyte Esterase NEGATIVE NEGATIVE Urine RBC (Auto) NEGATIVE NEGATIVE Urine RBC NONE /HPF Urine WBC 0-2 /HPF Urine Squamous Epithelial Cells 10-25 H /HPF Urine Crystals PRESENT H /LPF Urine Amorphous Sediment FEW ANALISA URATES H /LPF Urine Bacteria FEW H /HPF Urine Casts NONE /LPF Urine Mucus SMALL H /LPF Urine Culture Indicated NO White Blood Count 7.0 4.3-11.0 10^3/uL Red Blood Count 4.52 3.80-5.11 10^6/uL Hemoglobin 13.7 11.5-16.0 g/dL Hematocrit 41 35-52 % Mean Corpuscular Volume 91 80-99 fL Mean Corpuscular Hemoglobin 30 25-34 pg Mean Corpuscular Hemoglobin Concent 33 32-36 g/dL Red Cell Distribution Width 13.4 10.0-14.5 % Platelet Count 271 130-400 10^3/uL Mean Platelet Volume 9.4 9.0-12.2 fL Immature Granulocyte % (Auto) 0 % Neutrophils (%) (Auto) 57 42-75 % Lymphocytes (%) (Auto) 35 12-44 % Monocytes (%) (Auto) 5 0-12 % Eosinophils (%) (Auto) 3 0-10 % Basophils (%) (Auto) 1 0-10 % Neutrophils # (Auto) 4.0 1.8-7.8 10^3/uL Lymphocytes # (Auto) 2.4 1.0-4.0 10^3/uL Monocytes # (Auto) 0.4 0.0-1.0 10^3/uL Eosinophils # (Auto) 0.2 0.0-0.3 10^3/uL Basophils # (Auto) 0.1 0.0-0.1 10^3/uL Immature Granulocyte # (Auto) 0.0 0.0-0.1 10^3/uL Sodium Level 141 135-145 MMOL/L Potassium Level 4.0 3.6-5.0 MMOL/L Chloride Level 109 H 98-107 MMOL/L Carbon Dioxide Level 21 21-32 MMOL/L Anion Gap 11 5-14 MMOL/L Blood Urea Nitrogen 7 7-18 MG/DL Creatinine 0.80 0.60-1.30 MG/DL Estimat Glomerular Filtration Rate 102 BUN/Creatinine Ratio 9 Glucose Level 99 70-105 MG/DL Calcium Level 9.2 8.5-10.1 MG/DL Corrected Calcium 9.0 8.5-10.1 MG/DL Magnesium Level 1.9 1.6-2.4 MG/DL Total Bilirubin 0.3 0.1-1.0 MG/DL Aspartate Amino Transf (AST/SGOT) 15 5-34 U/L Alanine Aminotransferase (ALT/SGPT) 19 0-55 U/L Alkaline Phosphatase 69 40-136 U/L C-Reactive Protein High Sensitivity 0.13 0.00-0.50 MG/DL Total Protein 6.9 6.4-8.2 GM/DL Albumin 4.3 3.2-4.5 GM/DL Lipase 20 8-78 U/L Serum Test, Qualitative NEGATIVE NEGATIVE My Orders Orders - JACQUELINE MEYER MD Ua Culture If Indicated (03/04/22 08:06) Cbc With Automated Diff (03/04/22 08:20) Comprehensive Metabolic Panel (03/04/22 08:20) Hs C Reactive Protein (03/04/22 08:20) Hcg,Qualitative Serum (03/04/22 08:20) Lipase (03/04/22 08:20) Magnesium (03/04/22 08:20) Ed Iv/Invasive Line Start (03/04/22 08:20) Vital Signs/I&O 03/04/22 03/04/22 08:00 10:59 Temp 35.9 Pulse 88 98 Resp 18 18 B/P (MAP) 121/75 (90) 131/67 Pulse Ox 100 O2 Delivery Room Air Room Air Blood Pressure Mean: 90 Progress Progress Note : Progress Note Labs were unremarkable. I offered alternative treatment course for H. pylori along with a larger quantity of Zofran and Phenergan for backup treatment of nausea and vomiting. I advised follow-up with a surgeon for endoscopy and follow-up with her primary care provider for hepatobiliary scan. See discharge instructions for further discussion. Departure Impression Primary Impression: Right upper quadrant pain Additional Impressions: H pylori ulcer Nausea & vomiting Qualified Codes: R11.2 - Nausea with vomiting, unspecified Disposition: 01 HOME, SELF-CARE Condition: Stable Departure-Patient Inst. Referrals: [facility] [place]Family) Primary Care Physician KUN BLAKE BRETT D DO KIDO, TAKAAKI MD Patient Instructions: Abdominal Pain, Adult ED, Cannabis Hyperemesis Syndrome, H. pylori Infection (DC) Add. Discharge Instructions: Start the new 4 medication regimen for H. pylori. Pretreat with Zofran (ondansetron) about 15 minutes prior to taking the other medications. Use Phenergan (promethazine) as a backup nausea medication if Zofran is insufficient. Please be aware Phenergan may cause significant drowsiness. You need to see a surgeon as soon as possible for endoscopy. A list of local surgeons is provided below for your convenience. You may call their office directly or request a referral from your primary care provider. Follow-up with your primary care provider soon as possible. I suggest obtaining a hepatobiliary scan as arranged through your primary care provider. This test has to be scheduled and advanced and cannot be ordered in the ER. This test is to evaluate the function of the gallbladder. Eat a low-fat diet. This also means avoiding greases and oils, such as those found in salad dressings, etc. Drink plenty of noncarbonated clear liquids. Gradually advance diet with small quantities of bland food as tolerated. Avoid the following: Eating large meals, eating close to bedtime, caffeine, carbonation, citrus fruits and juices, tomato products, mints, smoking, other tobacco products, alcohol, spicy foods, fatty and greasy foods, NSAID medications such as ibuprofen or naproxen, or anything else you know irritate your stomach. Some users of marijuana or THC products developed a syndrome called cannabis hyperemesis syndrome. I recommend that you taper off your marijuana use over the next couple of weeks and then abstain for several months. Only by abstaining for several months can you determine if marijuana use is a contributing factor to your abdominal problems. For treatment of constipation drink plenty of clear liquids and eat plenty of fruits, vegetables, and whole grains. Avoid excessive meats, cheeses, fast foods, and processed foods. You may use Colace or MiraLAX purchased [id number] follow package instructions. Call your doctor with questions or concerns. Return to the ER if you have worsening symptoms despite following these instructions. All discharge instructions reviewed with patient and/or family. Voiced understanding. Scripts Bismuth Subsalicylate (Pepto-Bismol) 262 Mg Tablet 262 MG PO QID, #56 TAB Prov: JACQUELINE MEYER MD 03/04/22 Tetracycline HCl (Tetracycline HCl) 500 Mg Capsule 500 MG PO QID, #56 CAP Prov: JACQUELINE MEYER MD 03/04/22 Metronidazole (Metronidazole) 500 Mg Tablet 250 MG PO QID, #28 TAB 0 Refills Prov: JACQUELINE MEYER MD 03/04/22 Omeprazole (Omeprazole) 20 Mg Capsule.dr 20 MG PO BID, #28 CAP Prov: JACQUELINE MEYER MD 03/04/22 Promethazine HCl (Promethazine Tablet) 25 Mg Tablet 25 MG PO Q6H PRN for NAUSEA/VOMITING-2ND LINE, #10 TAB Prov: JACQUELINE MEYER MD 03/04/22 Ondansetron (Ondansetron Odt) 4 Mg Tab.rapdis 4 MG SL Q4H PRN for NAUSEA/VOMITING, #30 TAB 1 Refill Prov: JACQUELINE MEYER MD 03/04/22 Copy Copies To 1: [facility] [place] JACQUELINE MEYER MD Mar 04, 2022 10:44
[2022-03-04] MEDS ORDERED: OMEP20CA18 PO (10:50)
[2022-03-04] MEDS ORDERED: PROM25TA14 PO (10:50)
[2022-03-04] MEDS ORDERED: TETR-37 PO (10:50)
[2022-03-04] MEDS ORDERED: METR-145 PO (10:50)
[2022-03-04] MEDS ORDERED: ONDA4TAB11 SL (10:50)
[2022-03-04] MEDS ORDERED: BISM262T19 PO (10:50)
[2022-03-04 10:59] VITALS: BP 131/67
== END 2022-03-04 10:59 | disposition home or self-care (01) ==
LOC: EDUNIT# 07:59 → ER 08:01
DX: A04.8 Other specified bacterial intestinal infections (principal); F17.210 Nicotine dependence, cigarettes, uncomplicated; Z28.310 Unvaccinated for COVID-19; Z32.02 Encounter for pregnancy test, result negative
CPT/HCPCS: 36415; 80053; 81000; 83690; 83735; 84703; 85025; 86141

== ENCOUNTER → 2022-03-22 | Outpatient (CLI) | payer MEDICAID ==
[~2022-03-22] MED LIST changes: +BISM262T19 PO; +CATHETER FLUSH 10 ML SYR IVP PRN; +METR-145 PO; +OMEP20CA18 PO; +ONDA4TAB11 SL; +PROM25TA14 PO; +TETR-37 PO
--- NOTE | 2022-03-22 11:30 | Diagnostic Imaging Report ---
INDICATION: Abdominal pain Hepatobiliary scan 5.2 mCi of technetium 99m Choletec was given for the scan. 8 oz of Ensure was consumed with 60 minutes. There is homogeneous uptake of isotope throughout the liver. The cystic duct and common duct are both patent. The calculated gallbladder ejection fraction was 36%. IMPRESSION: Unremarkable hepatobiliary scan. Dictated by: Dictated on workstation # [id number]
== END ==
LOC: CARD 09:00
PROVIDERS: ATTEND Surgery
DX: R10.11 Right upper quadrant pain (principal); R11.2 Nausea with vomiting, unspecified
CPT/HCPCS: 78227

== ENCOUNTER 2022-03-31 05:30 | Outpatient (RCR) | payer MEDICAID ==
[~2022-03-31] VITALS: Ht 160 cm; Wt 73.0 kg
[~2022-03-31 05:30] MED LIST changes: -CATHETER FLUSH 10 ML SYR IVP PRN; +CLN.1T PO; +LAMO25TA8 PO
[2022-04-01] MEDS ORDERED: HYDR-3817 PO (11:48)
[2022-04-02] MEDS ORDERED: ONDA-105 PO (10:28)
[2022-04-02] MEDS ORDERED: HYDR-3817 PO (10:28)
[2022-04-02] MEDS ORDERED: PANT40TA52 PO (10:28)
[2022-04-02] MEDS ORDERED: CLN.1T PO (10:28)
[2022-04-02] MEDS ORDERED: PROM25TA14 PO (12:29)
== END 2022-04-06 15:46 | disposition home or self-care (01) ==
LOC: PREOP 05:30
PROVIDERS: ATTEND Surgery
DX: Z01.812 Encounter for preprocedural laboratory examination (principal); B96.81 Helicobacter pylori [H. pylori] as the cause of diseases classified elsewhere; K83.8 Other specified diseases of biliary tract; K21.9 Gastro-esophageal reflux disease without esophagitis; Z20.822 Contact with and (suspected) exposure to COVID-19
CPT/HCPCS: 87636

== ENCOUNTER 2022-04-01 10:57 | Day surgery (SDC) | payer MEDICAID ==
[~2022-04-01] VITALS: Ht 160 cm; Wt 73.0 kg
[2022-04-01] VITALS (12 sets, daily range): BP systolic 105–132; BP diastolic 65–94
[2022-04-01] MEDS ORDERED: CLINDAMYCIN 600 MG/50 ML IVPB 50 ML IV ONE ×2 (11:06→11:45)
[2022-04-01] MEDS ORDERED: LIDOCAINE/EPI 2% 1:200,00 (XYLOCAINE) 20 ML VIAL ONE (11:42)
[2022-04-01] MEDS ORDERED: LACTATED RINGERS 1,000 ML IV PRN (11:45)
--- NOTE | 2022-04-01 11:46 | Progress Note-Pre Operative ---
Pre-Operative Progress Note Date of Available H&P: Apr 01, 2022 Date H&P Reviewed: Apr 01, 2022 Time H&P Reviewed: 11:30 History & Physical: No changes noted Pre-Operative Diagnosis: sx biliary dyskinesia, GERD MOHIT GOMES MD Apr 01, 2022 11:46
[2022-04-01] MEDS ORDERED: HYDR-3817 PO (11:48)
--- NOTE | 2022-04-01 11:49 | Discharge Inst-Surgical ---
D/C Lap Instructions-MIREYA New, Converted, or Re-Newed RX: RX on Chart Follow Up Appt in 2 weeks Activity as tolerated No driving for 24 hours No driving while on pain medications Incentive Spirometry use every 2 hours while awake Regular Diet Symptoms to Report: Fever over 101 degree F, Nausea/Vomiting Infection Signs and Symptoms to report: Increased redness, Foul odor of wound, Increased drainage Bathing instructions: May shower Operative Area Clean/Dry; Keep incision clean/dry If any problems/questions: Contact your physician or go to Emergency Room MOHIT GOMES MD Apr 01, 2022 11:49
[2022-04-01] MEDS ORDERED: ACETAMINOPHEN 325 MG TABLET PO PRN (12:00)
[2022-04-01] MEDS ORDERED: ONDANSETRON 4 MG/2 ML (SDV) Z0FRAN IVP PRN ×2 (12:00→13:00)
[2022-04-01] MEDS ORDERED: morphine INJ 10 MG/ML 1ML (SYR OR VIAL) IVP PRN ×2 (12:00)
[2022-04-01] MEDS ORDERED: oxyCODONE/APAP 5/325MG (PERCOCET 5) TABLET PO PRN (12:00)
[2022-04-01] MEDS ORDERED: LIDOCAINE PF 2% 5 ML (XYLOCAINE) VIAL ONE (12:45)
[2022-04-01] MEDS ORDERED: proPOfol 200 MG/20 ML (DIPRIVAN) VIAL IV ONE (12:45)
[2022-04-01] MEDS ORDERED: ONDANSETRON 4 MG/2 ML (SDV) Z0FRAN ONE (12:45)
[2022-04-01] MEDS ORDERED: MIDAZOLAM 2 MG/2 ML (VERSED) VIAL ONE (12:45)
[2022-04-01] MEDS ORDERED: GLYCOPYRROLATE 0.2 MG/ML (ROBINUL) 2 ML VIAL ONE (12:45)
[2022-04-01] MEDS ORDERED: ROCURONIUM 50 MG/5 ML (ZEMURON) VIAL IV ONE (12:45)
[2022-04-01] MEDS ORDERED: fentaNYL INJ 100 MCG/2 ML AMP ONE (12:45)
[2022-04-01] MEDS ORDERED: morphine INJ 10 MG/ML 1ML (SYR OR VIAL) IVP ONE (13:00)
[2022-04-01] MEDS ORDERED: HYDROmorphone 2 MG/ML VIAL (DILAUDID) IV ONE (13:00)
[2022-04-01] MEDS ORDERED: HYDROmorphone 2 MG/ML VIAL (DILAUDID) ONE (14:02)
--- NOTE | 2022-04-01 14:12 | Progress Note-Post Operative ---
Post-Operative Progess Note Surgeon (s)/[employer] Senior Sergeant (s) Surgeon Dr. Oneil Wilson M.D. [employer] Senior Sergeant: Patricio Guevara SERVICE OFFICER Pre-Operative Diagnosis sx biliary dyskinesia, GERD Post-Operative Diagnosis Biliary dyskinesia, Reflux esophagitis class C, small Hiata Hernia 1.5 cm, severe gastritis Procedure & Operative Findings Date of Procedure 04/01/22 Procedure Performed/Findings Laparoscopic cholecystectomy, EGD with biopsy Anesthesia Type GET Estimated Blood Loss Estimated blood loss (mL): Minimal Specimens/Packing Specimens Removed 1) Gallbladder 2) GE junction 3) Antrum PATRICIO GUEVARA SERVICE OFFICER Apr 01, 2022 14:12
[2022-04-01] MEDS ORDERED: SEVOFLURANE (ULTANE) 15 ML INHAL SOLN ONE (14:25)
[2022-04-01] MEDS ORDERED: NEOSTIGMINE (BLOXIVERZ ) 1 MG/1ML 10 ML VIAL ONE (14:28)
--- NOTE | 2022-04-01 14:42 | Anesthesia-General Post-Op ---
General Patient Condition Mental Status/LOC: Same as Preop Cardiovascular: Satisfactory Nausea/Vomiting: Absent Respiratory: Satisfactory Pain: Controlled Complications: Absent Post Op Complications Complications None Follow Up Care/Instructions Patient Instructions None needed. Anesthesia/Patient Condition Patient Condition Patient is doing well in PACU, no complaints, stable vital signs, no apparent adverse anesthesia problems. No complications reported per nursing. MARCY MA DO Apr 01, 2022 14:42
[2022-04-02] MEDS ORDERED: HYDR-3817 PO (10:28)
[2022-04-02] MEDS ORDERED: CLN.1T PO (10:28)
[2022-04-02] MEDS ORDERED: ONDA-105 PO (10:28)
[2022-04-02] MEDS ORDERED: PANT40TA52 PO (10:28)
[2022-04-02] MEDS ORDERED: PROM25TA14 PO (12:29)
--- NOTE | 2022-04-13 22:23 | OPERATIVE REPORT ---
DATE OF SERVICE: 04/01/2022 PREOPERATIVE DIAGNOSES: Nausea and vomiting, right upper abdominal quadrant pain with symptomatic biliary dyskinesia, history of gastroesophageal reflux disease as well as a history of H. pylori gastritis. POSTOPERATIVE DIAGNOSES: Biliary dyskinesia, reflux esophagitis, Mcminn between grade B and C, small hiatal hernia approximately 2.5 cm in size, severe gastritis, normal duodenum. PROCEDURE: Laparoscopic cholecystectomy, EGD with biopsy. SURGEON: Mohit Gomes MD. CRTTS: Patricio Aguirre APRN. ANESTHESIA: General endotracheal. ESTIMATED BLOOD LOSS: Minimal. FINDINGS: Biliary dyskinesia, reflux esophagitis, Mcminn between grade B and C, small hiatal hernia approximately 2.5 cm in size, severe gastritis, normal duodenum. DISPOSITION: The patient tolerated the procedure well. INDICATIONS: The patient is a 31-year-old female, who has had issues with longstanding history of gastroesophageal reflux disease as well as peptic ulcer disease and has been treated with proton pump inhibitors in the past and this did help; however, she has eventually did discontinue her acid reduction medications. She states that she has had a history of H. pylori gastritis as well in the past and did not take the full therapeutic medication regimen for this due to the secondary side effects. She also reported the development of right upper abdominal quadrant pain with radiation towards the back as well as nausea and vomiting after eating meals. An ultrasound was performed, which did not show any gallstones; however, an HIDA scan was performed, which showed an ejection fraction, which was on the relatively low side at 36%; however, also did have reproduction of symptoms with the abdominal pain as well as nausea and vomiting after the administration of the Kinevac analogue. This was consistent with a symptomatic biliary dyskinesia. DESCRIPTION OF PROCEDURE: The patient was brought to the operating room, laid supine on the table. After adequate IV pain and sedative medications and general endotracheal intubation, the abdomen was prepped and draped in standard surgical fashion. A 0.5% Marcaine with epinephrine was used to anesthetize the overlying skin in the left upper abdominal quadrant and a transverse skin incision made using a 15 blade. An 0 silk suture was applied to the medial aspect of incision for retraction and a Veress needle inserted with a low opening pressure of 0 mmHg. The abdomen was then insufflated to 15 mmHg pressure. The Veress needle removed and a 5 mm XL trocar placed followed by a 5 mm 45-degree angle laparoscope visualizing the peritoneal cavity. A 4-quadrant abdominal exploration was performed. There was a slightly distended gallbladder, no gallbladder wall thickening. Under direct visualization, we then proceeded to place a supraumbilical 10 mm port after the skin and peritoneal lining were anesthetized using 0.5% Marcaine with epinephrine and a transverse skin incision made using a 15 blade. In a similar manner, a right upper abdominal quadrant 5 mm port was placed. The patient was then placed in reverse Trendelenburg position as well as plane right side up, left side down. The fundus of the gallbladder was then retracted anteriorly and superiorly. The hepatoduodenal ligament was then dissected with blunt dissection as well as electrocautery on hook instrument as well as a [place] dissector. The entire critical view of safety was identified including the cystic duct and artery as only two structures going into the gallbladder as well as the cystic plate behind the proximal gallbladder as well as the cystic duct and artery as the only two structures going into the gallbladder. A timeout was then taken and the cystic duct and artery were then clipped proximally and distally and cut with EndoShears. The gallbladder was then dissected off the liver bed using electrocautery on the hook instrument with visualization of good hemostasis as well as no leaking ducts of Luschka. The gallbladder was removed through the 10 mm port site using an EndoCatch bag. The 10 mm port site fascia and peritoneum were then closed under direct visualization using a Eric-Severiano device and 0 Vicryl suture. The abdomen was then desufflated and the remaining ports removed. All skin incisions were closed using 4-0 Monocryl running subcuticular sutures. Wounds were then cleaned and covered with Dermabond. The endoscope was placed in the mouth visualizing vocal cords, epiglottis and vallecula which were normal. The endoscope was then intubated into the esophagus then insufflated. The endoscope was then advanced through the first, second, and third portion of the esophagus and at the level of the GE jxn a Mcminn grade B-C was found. This was biopsied with visualization good hemostasis. The endoscope was then advanced into the stomach and retroflexed visualizing a small hiatal hernia approximately 2.5cm in size. A diffuse severe gastritis was noted. No ulcers, polyps or neoplasms. The pylorus and duodenum were normal. A biopsy was taken at the antrum to rule-out H. pylori. The endoscope was then withdrawn with no other findings. The patient tolerated the procedure well. We will start IV normal pain medication as well as a clear liquid diet. When she is tolerating clears, has good pain control with oral pain medications, ambulating well, we will discharge her home where she will be instructed to do no heavy lifting or exertion for the next two weeks. Job ID: [id number] DocumentID: [id number] Dictated Date: 04/13/2022 15:47:26 Unix Analyst Date: 04/13/2022 22:22:57 Dictated By: MOHIT GOMES MD MTDD
== END 2022-04-01 16:40 ==
LOC: SDC 10:57
PROVIDERS: ATTEND Surgery
DX: K81.1 Chronic cholecystitis (principal); K21.00 Gastro-esophageal reflux disease with esophagitis, without bleeding; K29.50 Unspecified chronic gastritis without bleeding; K31.89 Other diseases of stomach and duodenum; K82.8 Other specified diseases of gallbladder; K44.9 Diaphragmatic hernia without obstruction or gangrene; F17.210 Nicotine dependence, cigarettes, uncomplicated
CPT/HCPCS: 84703; 87081; 94664

== ENCOUNTER 2022-04-01 23:15 | Observation (INO) | payer MEDICAID ==
[~2022-04-01] VITALS: Ht 160 cm; Wt 76.2 kg
[~2022-04-01 23:15] MED LIST changes: +HYDR-3817 PO
[2022-04-01] MEDS ORDERED: fentaNYL INJ 100 MCG/2 ML AMP IVP ONE (23:30)
[2022-04-01] MEDS ORDERED: PANTOPRAZOLE 40 MG (PROTONIX) VIAL IV ONE (23:30)
[2022-04-01] MEDS ORDERED: PROMETHAZINE INJ 25 MG/ML (PHENERGAN) AMP IVP ONE (23:30)
[2022-04-01 23:38] LABS: BASOPHILS % (AUTO) 0 % (0-10); EOSINOPHILS % (AUTO) 0 % (0-10); HEMATOCRIT 41 % (35-52); HEMOGLOBIN 13.8 g/dL (11.5-16.0); LYMPHOCYTES # (AUTO) 0.7 10^3/uL (1.0-4.0); LYMPHOCYTES % (AUTO) 5 % (12-44); MEAN CORPUSCULAR HEMOGLOBIN 30 pg (25-34); MEAN CORPUSCULAR HGB CONC 34 g/dL (32-36); MEAN CORPUSCULAR VOLUME 90 fL (80-99); MEAN PLATELET VOLUME 9.3 fL (9.0-12.2); MONOCYTES # (AUTO) 0.1 10^3/uL (0.0-1.0); MONOCYTES % (AUTO) 1 % (0-12); NEUTROPHILS # (AUTO) 11.8 10^3/uL (1.8-7.8); NEUTROPHILS % (AUTO) 94 % (42-75); PLATELET COUNT 322 10^3/uL (130-400); WHITE BLOOD COUNT 12.6 10^3/uL (4.3-11.0)
[2022-04-01 23:53] LABS: ALBUMIN 4.3 GM/DL (3.2-4.5)
[2022-04-01 23:54] LABS: CALCIUM 9.3 MG/DL (8.5-10.1)
[2022-04-01 23:57] LABS: BILIRUBIN,TOTAL 0.6 MG/DL (0.1-1.0)
[2022-04-01 23:58] LABS: BURR CELLS SLIGHT; ELLIPT/OVALOCYTES SLIGHT; LYMPHOCYTES % (MANUAL) 5 %; MYELOCYTES % 1 %; NEUTROPHILS % (MANUAL) 94 %
[2022-04-01 23:59] LABS: CREATININE SERUM 0.98 MG/DL (0.60-1.30)
[2022-04-02 00:03] LABS: PROTHROMBIN TIME PATIENT 13.7 SEC (12.2-14.7)
[2022-04-02] MEDS ORDERED: morphine INJ 10 MG/ML 1ML (SYR OR VIAL) IVP STA (00:27)
--- NOTE | 2022-04-02 00:32 | ED Abdominal Pain ---
General Chief Complaint: Post OP Complications/Pain Stated Complaint: VOMITING Nursing Triage Note: PT TO ED BY EMS WITH C/O ABD PAIN AND VOMITING. PT HAD CHOLECSTECTOMY TODAY BY DR. WILSON AND HAS HAD N/V SINCE 1699. BULKER, PT HAD SHARP PAIN WHILE VOMITING AND BEGAN VOMITING BRIGHT RED BLOOD. Source of Information: Patient Exam Limitations: No Limitations History of Present Illness Date Seen by Provider: Apr 01, 2022 Time Seen by Provider: 23:19 Initial Comments This 31-year-old young lady presents to the emergency room with intense abdominal pain, nausea, vomiting, coffee-ground emesis, and bright red hematemesis after having EGD with biopsy and laparoscopic cholecystectomy performed today. Dr. Wilson is her surgeon. She took hydrocodone and Zofran at home without improvement. Her emesis has been mostly coffee-ground but she did have 1 episode of bright red blood on arrival to the ER. Allergies and Home Medications Allergies Coded Allergies: Penicillins (Verified Allergy, Unknown, 04/01/22) Patient Home Medication List Home Medication List Reviewed: Yes Clonidine HCl (Clonidine HCl) 0.1 Mg Tablet, 0.1 MG PO HS, (Reported) Entered as Reported by: FRANCES QUINTANA on 03/30/22 1108 Hydrocodone/Acetaminophen (Hydrocodone-Acetamin 7.5-325) 7.5 Mg-325 Mg Tablet, 1 EACH PO Q4H Prescribed by: MOHIT WILSON on 04/01/22 1148 Lamotrigine (Lamotrigine) 25 Mg Tablet, 50 MG PO HS, (Reported) Entered as Reported by: FRANCES QUINTANA on 03/30/22 1108 Ondansetron (Ondansetron Odt) 4 Mg Tab.rapdis, 4 MG PO Q6H PRN for NAUSEA/VOMITING, (Reported) Entered as Reported by: FRANCES QUINTANA on 03/30/22 1108 Discontinued Medications Bismuth Subsalicylate (Pepto-Bismol) 262 Mg Tablet, 262 MG PO QID Discontinued Reason: Duplicate Order Prescribed by: JACQUELINE MENJIVAR on 03/04/22 1050 Metronidazole (Metronidazole) 500 Mg Tablet, 250 MG PO QID Discontinued Reason: Duplicate Order Prescribed by: JACQUELINE MENJIVAR on 03/04/22 1050 Omeprazole (Omeprazole) 20 Mg Capsule.dr, 20 MG PO BID Discontinued Reason: Duplicate Order Prescribed by: JACQUELINE MENJIVAR on 03/04/22 1050 Ondansetron (Ondansetron Odt) 4 Mg Tab.rapdis, 4 MG PO Q6H PRN for NAUSEA/VOMITING Discontinued Reason: Duplicate Order Prescribed by: MARINA MASSEY on 02/03/22 1155 Ondansetron (Ondansetron Odt) 4 Mg Tab.rapdis, 4 MG SL Q4H PRN for NAUSEA/VOMITING Discontinued Reason: Duplicate Order Prescribed by: JACQUELINE MENJIVAR on 03/04/22 1050 Promethazine HCl (Promethazine Tablet) 25 Mg Tablet, 25 MG PO Q6H PRN for NAUSEA/VOMITING-2ND LINE Discontinued Reason: Duplicate Order Prescribed by: JACQUELINE MENJIVAR on 03/04/22 1050 Sucralfate (Carafate) 1 Gram Tablet, 1 GM PO QIDACHS Discontinued Reason: Duplicate Order Prescribed by: MARINA MASSEY on 02/03/22 1155 Sulfamethoxazole/Trimethoprim (Bactrim Ds Tablet) 1 Each Tablet, 1 EACH PO BID Discontinued Reason: Duplicate Order Prescribed by: DENISE TAYLOR on 06/06/21 1928 Sulfamethoxazole/Trimethoprim (Bactrim Ds Tablet) 1 Each Tablet, 1 EACH PO BID Discontinued Reason: Duplicate Order Prescribed by: MARINA MASSEY on 11/09/21 1042 Tetracycline HCl (Tetracycline HCl) 500 Mg Capsule, 500 MG PO QID Discontinued Reason: Duplicate Order Prescribed by: JACQUEILNE MENJIVAR on 03/04/22 1050 Review of Systems Review of Systems Constitutional: no symptoms reported EENTM: No Symptoms Reported Respiratory: No Symptoms Reported Cardiovascular: No Symptoms Reported Gastrointestinal: See HPI Genitourinary: No Symptoms Reported Musculoskeletal: no symptoms reported Skin: no symptoms reported Psychiatric/Neurological: No Symptoms Reported Endocrine: No Symptoms Reported Past Ytahemf-Enbypa-Kszftz Hx Patient Social History Tobacco Use?: Yes Tobacco type used: Cigarettes Smoking Status: Current Everyday Smoker Use of E-Cig and/or Vaping dev: No Substance use?: Yes Substance type: Marijuana Substance frequency: Daily Alcohol Use?: Yes Alcohol type: Beer, Hard Liquor, Wine Alcohol Frequency: Once in a while Pt feels they are or have been: No Immunizations Up To Date Tetanus Booster (TDap): Unknown Influenza Vaccine Up-to-Date: No; Not Current First/Initial COVID19 Vaccinat: none Seasonal Allergies Seasonal Allergies: No Past Medical History Surgery/Hospitalization HX: CHOLECYSTECTOMY Surgeries: Yes (ovarian cystectomy x2, EGD with biopsy) Abdominal, Gallbladder Respiratory: No Currently Using CPAP: No Currently Using BIPAP: No Cardiac: No Neurological: No : No Reproductive Disorders: Yes Female Reproductive Disorders: Ovarian Cyst Genitourinary: No Gastrointestinal: Yes (H. pylori) Gastroesophageal Reflux, Gall Bladder Disease Musculoskeletal: No Endocrine: No HEENT: No Cancer: No Psychosocial: Yes Sleep Difficulties, Anxiety Integumentary: No Blood Disorders: No Physical Exam Vital Signs Vital Signs - First Documented 04/01/22 23:20 Temp 36.3 Pulse 66 Resp 18 B/P (MAP) 131/72 (91) Pulse Ox 100 O2 Delivery Room Air Capillary Refill : Height/Weight/BMI Height: '" Weight: lbs. oz. 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, no motor/sensory deficits, alert, normal mood/affect, oriented x 3 Skin: normal color, warm/dry Progress/Results/Core Measures Results/Orders Lab Results Laboratory Tests Test 04/01/22 23:25 Range/Units White Blood Count 12.6 H 4.3-11.0 10^3/uL Red Blood Count 4.57 3.80-5.11 10^6/uL Hemoglobin 13.8 11.5-16.0 g/dL Hematocrit 41 35-52 % Mean Corpuscular Volume 90 80-99 fL Mean Corpuscular Hemoglobin 30 25-34 pg Mean Corpuscular Hemoglobin Concent 34 32-36 g/dL Red Cell Distribution Width 13.2 10.0-14.5 % Platelet Count 322 130-400 10^3/uL Mean Platelet Volume 9.3 9.0-12.2 fL Immature Granulocyte % (Auto) 0 % Neutrophils (%) (Auto) 94 H 42-75 % Lymphocytes (%) (Auto) 5 L 12-44 % Monocytes (%) (Auto) 1 0-12 % Eosinophils (%) (Auto) 0 0-10 % Basophils (%) (Auto) 0 0-10 % Neutrophils # (Auto) 11.8 H 1.8-7.8 10^3/uL Lymphocytes # (Auto) 0.7 L 1.0-4.0 10^3/uL Monocytes # (Auto) 0.1 0.0-1.0 10^3/uL Eosinophils # (Auto) 0.0 0.0-0.3 10^3/uL Basophils # (Auto) 0.0 0.0-0.1 10^3/uL Immature Granulocyte # (Auto) 0.0 0.0-0.1 10^3/uL Neutrophils % (Manual) 94 % Lymphocytes % (Manual) 5 % Myelocytes % 1 % [place] Cells SLIGHT Elliptocytes SLIGHT Prothrombin Time 13.7 12.2-14.7 SEC INR Comment 1.0 0.8-1.4 Activated Partial Thromboplast Time 29 24-35 SEC Sodium Level 137 135-145 MMOL/L Potassium Level 4.0 3.6-5.0 MMOL/L Chloride Level 108 H 98-107 MMOL/L Carbon Dioxide Level 17 L 21-32 MMOL/L Anion Gap 12 5-14 MMOL/L Blood Urea Nitrogen 10 7-18 MG/DL Creatinine 0.98 0.60-1.30 MG/DL Estimat Glomerular Filtration Rate 80 BUN/Creatinine Ratio 10 Glucose Level 163 H 70-105 MG/DL Calcium Level 9.3 8.5-10.1 MG/DL Corrected Calcium 9.1 8.5-10.1 MG/DL Total Bilirubin 0.6 0.1-1.0 MG/DL Aspartate Amino Transf (AST/SGOT) 79 H 5-34 U/L Alanine Aminotransferase (ALT/SGPT) 88 H 0-55 U/L Alkaline Phosphatase 74 40-136 U/L Total Protein 7.0 6.4-8.2 GM/DL Albumin 4.3 3.2-4.5 GM/DL Lipase 6 L 8-78 U/L Serum Test, Qualitative NEGATIVE NEGATIVE My Orders Orders - JACQUELINE MEYER MD Cbc With Automated Diff (04/01/22 23:24) Comprehensive Metabolic Panel (04/01/22 23:24) Hcg,Qualitative Serum (04/01/22 23:24) Lipase (04/01/22 23:24) Protime With Inr (04/01/22 23:24) Partial Thromboplastin Time (04/01/22 23:24) Promethazine Injection (Phenergan Injec (04/01/22 23:30) Fentanyl Inj (Sublimaze Injection) (04/01/22 23:30) Pantoprazole Injection (Protonix Injecti (04/01/22 23:30) Manual Differential (04/01/22 23:25) Morphine Injection (Morphine Injection (04/02/22 00:27) Medications Given in ED Current Medications Medications Dose Ordered Sig/Sanjay Route Start Time Stop Time Status Last Admin Dose Admin Fentanyl Citrate 75 mcg ONCE ONCE IVP 04/01/22 23:30 04/01/22 23:31 DC 04/01/22 23:30 75 MCG Pantoprazole 80 mg ONCE ONCE IV 04/01/22 23:30 04/01/22 23:31 DC 04/01/22 23:35 80 MG Promethazine HCl 25 mg ONCE ONCE IVP 04/01/22 23:30 04/01/22 23:31 DC 04/01/22 23:30 25 MG Vital Signs/I&O 04/01/22 23:20 Temp 36.3 Pulse 66 Resp 18 B/P (MAP) 131/72 (91) Pulse Ox 100 O2 Delivery Room Air 04/02/22 00:00 Intake Total 200 ml Balance 200 ml Blood Pressure Mean: 91 Progress Progress Note : Progress Note Patient was treated with Phenergan, IV fluids, and fentanyl. She was given morphine for uncontrolled pain. Protonix 80 mg was administered for the GI bleeding. Case was discussed with Dr. Wilson who was agreeable to admission. Departure Communication (Admissions) Time/Spoke to Admitting Phy: 00:32 Dr. Wilson Impression Primary Impression: Hematemesis Qualified Codes: K92.0 - Hematemesis Additional Impression: Postoperative pain Disposition: ADMITTED INPATIENT Condition: Stable Admissions Decision to Admit Reason: Admit from ER (General) Decision to Admit/Date: Apr 02, 2022 Time/Decision to Admit Time: 00:32 Departure-Patient Inst. Referrals: [facility] (PCP/Family) Primary Care Physician JACQUELINE MEYER MD Apr 02, 2022 00:32
[2022-04-02] MEDS: LACTATED RINGERS 1,000 ML IV SCH ×2 (02:28→10:21)
[2022-04-02] MEDS: ONDANSETRON 4 MG/2 ML (SDV) Z0FRAN IV PRN ×2 (02:28→09:07)
[2022-04-02] MEDS ORDERED: PROMETHAZINE INJ 25 MG/ML (PHENERGAN) AMP IVP PRN (02:30)
[2022-04-02 03:53] VITALS: BP 146/80
[2022-04-02] MEDS: morphine INJ 4 MG/ML 1 ML (VIAL/SYRINGE) IV PRN ×2 (05:22→10:22)
[2022-04-02 06:44] LABS: BASOPHILS % (AUTO) 0 % (0-10); EOSINOPHILS % (AUTO) 0 % (0-10); HEMATOCRIT 41 % (35-52); HEMOGLOBIN 13.5 g/dL (11.5-16.0); LYMPHOCYTES # (AUTO) 0.9 10^3/uL (1.0-4.0); LYMPHOCYTES % (AUTO) 7 % (12-44); MEAN CORPUSCULAR HEMOGLOBIN 30 pg (25-34); MEAN CORPUSCULAR HGB CONC 33 g/dL (32-36); MEAN CORPUSCULAR VOLUME 91 fL (80-99); MEAN PLATELET VOLUME 9.5 fL (9.0-12.2); MONOCYTES # (AUTO) 0.3 10^3/uL (0.0-1.0); MONOCYTES % (AUTO) 2 % (0-12); NEUTROPHILS # (AUTO) 11.9 10^3/uL (1.8-7.8); NEUTROPHILS % (AUTO) 90 % (42-75); PLATELET COUNT 290 10^3/uL (130-400); WHITE BLOOD COUNT 13.2 10^3/uL (4.3-11.0)
[2022-04-02 06:50] LABS: ALBUMIN 4.1 GM/DL (3.2-4.5)
[2022-04-02 06:51] LABS: POTASSIUM 4.4 MMOL/L (3.6-5.0)
[2022-04-02 06:52] LABS: CALCIUM 8.8 MG/DL (8.5-10.1)
[2022-04-02 06:53] LABS: TOTAL PROTEIN 6.6 GM/DL (6.4-8.2)
[2022-04-02 06:55] LABS: BILIRUBIN,TOTAL 0.5 MG/DL (0.1-1.0)
[2022-04-02 06:57] LABS: CREATININE SERUM 0.82 MG/DL (0.60-1.30)
[2022-04-02 07:24] VITALS: BP 149/72
[2022-04-02] MEDS ORDERED: PANTOPRAZOLE 40 MG (PROTONIX) VIAL IV SCH (09:00)
[2022-04-02] MEDS ORDERED: PANT40TA52 PO (10:28)
[2022-04-02] MEDS ORDERED: ONDA-105 PO (10:28)
[2022-04-02] MEDS ORDERED: HYDR-3817 PO (10:28)
[2022-04-02] MEDS ORDERED: CLN.1T PO (10:28)
[2022-04-02 11:13] VITALS: BP 117/68
[2022-04-02] MEDS ORDERED: PROM25TA14 PO (12:29)
--- NOTE | 2022-04-02 12:29 | Discharge Inst-Surgical ---
D/C Lap Instructions-MIREYA New, Converted, or Re-Newed RX: RX on Chart Follow Up Appt in 2 weeks Activity as tolerated No driving for 24 hours No driving while on pain medications Incentive Spirometry use every 2 hours while awake Regular Diet Symptoms to Report: Fever over 101 degree F, Nausea/Vomiting Infection Signs and Symptoms to report: Increased redness, Foul odor of wound, Increased drainage Bathing instructions: May shower Operative Area Clean/Dry; Keep incision clean/dry If any problems/questions: Contact your physician or go to Emergency Room MOHIT GOMES MD Apr 02, 2022 12:29
[2022-04-02 14:01] VITALS: BP 117/68
== END 2022-04-02 12:27 | disposition home or self-care (01) ==
LOC: EDUNIT# 23:15 → ER 23:19 → 4TH 23:20 → UNDOADMOB 04-02 01:08 → UNDODISOB 04-02 13:54
PROVIDERS: ADMIT Surgery; ATTEND Surgery
DX: K92.0 Hematemesis (principal); F17.210 Nicotine dependence, cigarettes, uncomplicated
CPT/HCPCS: 36415; 80053; 83690; 84703; 85007; 85025; 85027; 85610; 85730; 96375; 96376; 99284; G0378

== ENCOUNTER 2022-04-09 10:36 | Emergency (ER) | payer MEDICAID ==
[~2022-04-09] VITALS: Ht 160 cm; Wt 75.0 kg
[~2022-04-09 10:36] MED LIST changes: +ONDA-105 PO; +PANT40TA52 PO
[2022-04-09 11:14] LABS: BASOPHILS % (AUTO) 0 % (0-10); EOSINOPHILS # (AUTO) 0.1 10^3/uL (0.0-0.3); EOSINOPHILS % (AUTO) 2 % (0-10); HEMATOCRIT 41 % (35-52); HEMOGLOBIN 13.7 g/dL (11.5-16.0); LYMPHOCYTES # (AUTO) 2.2 10^3/uL (1.0-4.0); LYMPHOCYTES % (AUTO) 31 % (12-44); MEAN CORPUSCULAR HEMOGLOBIN 30 pg (25-34); MEAN CORPUSCULAR HGB CONC 33 g/dL (32-36); MEAN CORPUSCULAR VOLUME 91 fL (80-99); MONOCYTES # (AUTO) 0.4 10^3/uL (0.0-1.0); MONOCYTES % (AUTO) 6 % (0-12); NEUTROPHILS # (AUTO) 4.4 10^3/uL (1.8-7.8); NEUTROPHILS % (AUTO) 61 % (42-75); PLATELET COUNT 287 10^3/uL (130-400); WHITE BLOOD COUNT 7.3 10^3/uL (4.3-11.0)
[2022-04-09 11:15] LABS: BILIRUBIN,URINE NEGATIVE (NEGATIVE); CLARITY,URINE CLEAR; COLOR,URINE YELLOW; GLUCOSE, URINE (UA) NEGATIVE (NEGATIVE); KETONES,URINE TRACE (NEGATIVE); LEUKOCYTE ESTERASE ,URINE NEGATIVE (NEGATIVE); NITRITE,URINE NEGATIVE (NEGATIVE); PROTEIN,URINE NEGATIVE (NEGATIVE)
[2022-04-09] MEDS ORDERED: fentaNYL INJ 100 MCG/2 ML AMP IVP STA (11:24)
--- NOTE | 2022-04-09 11:27 | ED Abdominal Pain ---
General Chief Complaint: Abdominal/GI Problems Stated Complaint: BLOODY STOOL, S/P COLONOSCOPY 04/01 Nursing Triage Note: pt. reports BM today w/ BRBPR. reports accomp w/ bilat lower abd cramping. Source of Information: Patient Exam Limitations: No Limitations (DONTAE KAPOOR) History of Present Illness Date Seen by Provider: Apr 09, 2022 Time Seen by Provider: 11:25 Initial Comments Patient is a 31-year-old female presents ED with mid abdominal pain. Pain started this morning. Described as a sharp pain. Pain over the past 2 to 3 hours. She states she had her second bowel movement since her gallbladder removed on the by Dr. Wilson and reports some bright red blood with old blood. She denies of any nausea or vomiting. Has not had any abdominal pain or cramping over the past 2 days. She states she is currently on Dulcolax to help regulate her bowel movements. She is currently on hydrocodone. She has had previous cyst removed in the past. She states they did do an EGD concerning for an ulcer. She denies fever, chest pain, shortness of breath, cough, headache, dizziness. She does report some bruising around the umbilicus that happen after the surgery. Patient denies any urinary symptoms. Patient upper endoscopy noted gastritis, esophagitis (DONTAE KAPOOR) Allergies and Home Medications Allergies Coded Allergies: Penicillins (Verified Allergy, Unknown, 04/01/22) Patient Home Medication List Home Medication List Reviewed: Yes (DONTAE KAPOOR) Clonidine HCl (Clonidine HCl) 0.1 Mg Tablet, 0.1 MG PO HS, (Reported) Entered as Reported by: FRANCES QUINTANA on 03/30/22 1108 Clonidine HCl (Clonidine HCl) 0.1 Mg Tablet, 0.05 MG PO DAILY PRN for ANXIETY, (Reported) Entered as Reported by: CYNTHIA LOOMIS on 04/02/22 1028 Hydrocodone/Acetaminophen (Hydrocodone-Acetamin 7.5-325) 7.5 Mg-325 Mg Tablet, 1 EACH PO Q4H PRN for PAIN-MODERATE (5-7), (Reported) Entered as Reported by: CYNTHIA LOOMIS on 04/02/22 1028 Lamotrigine (Lamotrigine) 25 Mg Tablet, 50 MG PO HS, (Reported) Entered as Reported by: FRANCES QUINTANA on 03/30/22 1108 Ondansetron HCl (Ondansetron HCl) 4 Mg Tablet, 4 MG PO Q4H PRN for NAUSEA/VOMITING-1ST LINE, (Reported) Entered as Reported by: CYNTHIA LOOMIS on 04/02/22 1028 Pantoprazole Sodium (Pantoprazole Sodium) 40 Mg Tablet.dr, 40 MG PO DAILY, (Reported) Entered as Reported by: CYNHTIA LOOMIS on 04/02/22 1028 Promethazine HCl (Promethazine Tablet) 25 Mg Tablet, 12.5 MG PO Q6H PRN for NAUSEA/VOMITING Prescribed by: MOHIT WILSON on 04/02/22 1229 Discontinued Medications Hydrocodone/Acetaminophen (Hydrocodone-Acetamin 7.5-325) 7.5 Mg-325 Mg Tablet, 1 EACH PO Q4H Discontinued Reason: Duplicate Order Prescribed by: MOHIT WILSON on 04/01/22 1148 Ondansetron (Ondansetron Odt) 4 Mg Tab.rapdis, 4 MG PO Q6H PRN for NAUSEA/VOMITING, (Reported) Discontinued Reason: Duplicate Order Entered as Reported by: FRANCES QUINTANA on 03/30/22 1108 Review of Systems Review of Systems Constitutional: No chills, No diaphoresis, No malaise, No weakness EENTM: No Double Vision, No Eye Pain Respiratory: Denies Cough Cardiovascular: Denies Chest Pain Gastrointestinal: Abdominal Pain, Constipated; Denies Diarrhea, Denies Nausea; Rectal Bleeding; Denies Vomiting Genitourinary: Denies Burning, Denies Discharge Musculoskeletal: No back pain, No joint pain Skin: No change in color, No change in hair/nails (DONTAE KAOPOR) All Other Systems Reviewed Negative Unless Noted: Yes (DONTAE KAPOOR) Past Htghsyb-Gbolrk-Zyfhpp Hx Patient Social History Tobacco type used: Cigarettes Smoking Status: Light Tobacco Smoker Smokeless Tobacco Frequency: Current Everyday User Use of E-Cig and/or Vaping dev: No E-Cig or Vaping type used: Marijuana Substance type: Marijuana Alcohol Use?: No Pt feels they are or have been: No (DONTAE KAPOOR) Immunizations Up To Date Tetanus Booster (TDap): Unknown Influenza Vaccine Up-to-Date: No; Not Current First/Initial COVID19 Vaccinat: none (DONTAE KAPOOR) Seasonal Allergies Seasonal Allergies: No (DONTAE KAPOOR) Past Medical History Surgery/Hospitalization HX: CHOLECYSTECTOMY Surgeries: Yes (ovarian cystectomy x2, EGD with biopsy) Abdominal, Gallbladder Respiratory: No Currently Using CPAP: No Currently Using BIPAP: No Cardiac: No Neurological: No Reproductive Disorders: Yes Female Reproductive Disorders: Ovarian Cyst Genitourinary: No Gastrointestinal: Yes (H. pylori) Gastroesophageal Reflux, Gall Bladder Disease Musculoskeletal: No Endocrine: No HEENT: No Cancer: No Psychosocial: Yes Sleep Difficulties, Anxiety Integumentary: No Blood Disorders: No (DONTAE KAPOOR) Physical Exam Vital Signs Vital Signs - First Documented 04/09/22 04/09/22 10:45 11:42 Temp 35.6 Pulse 100 Resp 16 B/P (MAP) 100/69 Pulse Ox 98 O2 Delivery Room Air (JACQUELINE MEYER MD) Vital Signs Capillary Refill : Less Than 3 Seconds (DONTAE KAPOOR) Height/Weight/BMI Height: '" Weight: lbs. oz. kg; 29.00 BMI Method: General Appearance: WD/WN, no apparent distress HEENT: PERRL/EOMI, normal ENT inspection, TMs normal, pharynx normal Neck: non-tender, full range of motion Respiratory: chest non-tender Cardiovascular: regular rate, rhythm, no edema, no gallop, no JVD Gastrointestinal: normal bowel sounds, soft, no organomegaly, other (Bruising around the umbilicus. Tenderness to the umbilicus area. Port sites appear to be healing. 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, no motor/sensory deficits, alert Skin: other (Bruising around the umbilicus) (DONTAE KAPOOR) Progress/Results/Core Measures Results/Orders Lab Results Laboratory Tests Test 04/09/22 10:45 Range/Units White Blood Count 7.3 4.3-11.0 10^3/uL Red Blood Count 4.53 3.80-5.11 10^6/uL Hemoglobin 13.7 11.5-16.0 g/dL Hematocrit 41 35-52 % Mean Corpuscular Volume 91 80-99 fL Mean Corpuscular Hemoglobin 30 25-34 pg Mean Corpuscular Hemoglobin Concent 33 32-36 g/dL Red Cell Distribution Width 13.2 10.0-14.5 % Platelet Count 287 130-400 10^3/uL Mean Platelet Volume 9.0 9.0-12.2 fL Immature Granulocyte % (Auto) 0 % Neutrophils (%) (Auto) 61 42-75 % Lymphocytes (%) (Auto) 31 12-44 % Monocytes (%) (Auto) 6 0-12 % Eosinophils (%) (Auto) 2 0-10 % Basophils (%) (Auto) 0 0-10 % Neutrophils # (Auto) 4.4 1.8-7.8 10^3/uL Lymphocytes # (Auto) 2.2 1.0-4.0 10^3/uL Monocytes # (Auto) 0.4 0.0-1.0 10^3/uL Eosinophils # (Auto) 0.1 0.0-0.3 10^3/uL Basophils # (Auto) 0.0 0.0-0.1 10^3/uL Immature Granulocyte # (Auto) 0.0 0.0-0.1 10^3/uL Urine Color YELLOW Urine Clarity CLEAR Urine pH 7.0 5-9 Urine Specific [place] 1.025 H 1.016-1.022 Urine Protein NEGATIVE NEGATIVE Urine Glucose (UA) NEGATIVE NEGATIVE Urine Ketones TRACE H NEGATIVE Urine Nitrite NEGATIVE NEGATIVE Urine Bilirubin NEGATIVE NEGATIVE Urine Urobilinogen 2.0 < = 1.0 MG/DL Urine Leukocyte Esterase NEGATIVE NEGATIVE Urine RBC (Auto) NEGATIVE NEGATIVE Urine RBC NONE /HPF Urine WBC RARE /HPF Urine Squamous Epithelial Cells 0-2 /HPF Urine Crystals PRESENT H /LPF Urine Amorphous Sediment FEW ANALISA PHOSPHATE H /LPF Urine Bacteria FEW H /HPF Urine Casts NONE /LPF Urine Mucus SMALL H /LPF Urine Culture Indicated YES Urine Test NEGATIVE NEGATIVE Sodium Level 139 135-145 MMOL/L Potassium Level 3.9 3.6-5.0 MMOL/L Chloride Level 107 98-107 MMOL/L Carbon Dioxide Level 20 L 21-32 MMOL/L Anion Gap 12 5-14 MMOL/L Blood Urea Nitrogen 9 7-18 MG/DL Creatinine 0.79 0.60-1.30 MG/DL Estimat Glomerular Filtration Rate 104 BUN/Creatinine Ratio 11 Glucose Level 102 70-105 MG/DL Calcium Level 9.3 8.5-10.1 MG/DL Corrected Calcium 9.3 8.5-10.1 MG/DL Total Bilirubin 0.6 0.1-1.0 MG/DL Aspartate Amino Transf (AST/SGOT) 107 H 5-34 U/L Alanine Aminotransferase (ALT/SGPT) 179 H 0-55 U/L Alkaline Phosphatase 165 H 40-136 U/L Total Protein 6.6 6.4-8.2 GM/DL Albumin 4.0 3.2-4.5 GM/DL Lipase 17 8-78 U/L (JACUQELINE MEYER MD) Vital Signs/I&O 04/09/22 04/09/22 04/09/22 04/09/22 10:45 11:42 13:48 14:24 Temp 35.6 36.4 36.4 Pulse 100 70 64 67 Resp 16 18 16 16 B/P (MAP) 100/69 111/80 116/90 Pulse Ox 98 96 98 99 O2 Delivery Room Air Room Air Room Air (JACQUELINE MEYER MD) Departure Communication (PCP) Patient with normal white blood count. Slight increase in liver enzymes. Patient had cholecystectomy by Dr. Wilson on 31 March. She reports mid abdominal pain with near umbilicus. She does have some localized bruising. Was concern for rectal bleeding today. She has been taken Dulcolax but had her second bowel movement since the surgery today. On rectal exam she was positive Hemoccult. Did noted some stool versus hemorrhoids at the distal rectum. No evidence of external hemorrhoids. No vomiting. She is afebrile. CT abdomen pelvis shows cholecystectomy changes. There is a fluid collection immediately following that is concern for intrahepatic biloma. The symmetric wall thickening at the hepatic flexure favors nonspecific colitis. This was discussed with Dr. Wilson who recommends following up in the office next week. Discussed continue with regulating bowel movements. She does have pain medication at home. Continue with laxative. If any worsening symptoms to return back to ED for further evaluation (DONTAE KAPOOR) Impression Primary Impression: Rectal bleeding Disposition: HOME, SELF-CARE Condition: Stable Departure-Patient Inst. Decision time for Depature: 13:57 (DONTAE KAPOOR) Referrals: [facility] (PCP/Family) Primary Care Physician Patient Instructions: Bloody Stools, Adult ED Add. Discharge Instructions: Recommend continue laxative. If any worsening symptoms such as multiple episodes of bloody stool, weakness fatigue unable to eat to return back to ED All discharge instructions reviewed with patient and/or family. Voiced un derstanding. ATTENDING PHYSICIAN NOTE: I was physically present as attending physician in the emergency department during the care of this patient, but I was not directly involved in the decision making or delivery of care for this patient. (JACQUELINE MEYER MD) DONTAE KAPOOR Apr 09, 2022 11:27 JACQUELINE MEYER MD Apr 09, 2022 20:49
[2022-04-09 11:34] LABS: BILIRUBIN,TOTAL 0.6 MG/DL (0.1-1.0); CALCIUM 9.3 MG/DL (8.5-10.1); CREATININE SERUM 0.79 MG/DL (0.60-1.30); POTASSIUM 3.9 MMOL/L (3.6-5.0); TOTAL PROTEIN 6.6 GM/DL (6.4-8.2)
[2022-04-09 11:38] LABS: BACTERIA,URINE FEW /HPF; WBC,URINE RARE /HPF
[2022-04-09 11:39] LABS: AMORPHOUS SEDIMENT,UR FEW AMOR PHOSPHATE /LPF; SQUAMOUS EPITHELIAL CELL,UR 0-2 /HPF
[2022-04-09] MEDS ORDERED: HOLD METFORMIN - RECEIVED CONTRAST 20 ML VIAL IV SCH (11:45)
[2022-04-09] MEDS ORDERED: IOHEXOL 350 MG/ML 100 ML (OMNIPAQUE 350) VIAL IV ONE (11:45)
[2022-04-09] MEDS ORDERED: NS 100 ML (IVPB) BAG IV ONE (11:45)
--- NOTE | 2022-04-09 13:28 | Diagnostic Imaging Report ---
PROCEDURE: CT abdomen and pelvis with contrast. TECHNIQUE: Multiple contiguous axial images were obtained through the abdomen and pelvis after administration of intravenous contrast. Auto Exposure Controls were utilized during the CT exam to meet ALARA standards for radiation dose reduction. All CT scans use one or more of the following dose optimizing techniques: automated exposure control, MA and/or KvP adjustment based on patient size and exam type or iterative reconstruction. INDICATION: 31-year-old female, one week post cholecystectomy. Left in stool earlier today with nausea and vomiting. CORRELATION STUDY: CT abdomen and pelvis 06/06/2021. FINDINGS: LOWER THORAX: Areas of atelectasis about both lower lung thurston. Heart size within normal limits. Small esophageal hernia. There is wall thickening of the GE junction. LIVER/GALLBLADDER: There has been interval cholecystectomy changes with clips in the gallbladder fossa. Following an identical pattern is a low density collection which appears to extend intrahepatic. There is visualization connection to the biliary tree more centrally. This measures 3.3 x 2.8 cm axial plane by 3.7 cm craniocaudal. Extending medially inferiorly is a regional area of asymmetric decreased attenuation. Remainder of the liver is otherwise unremarkable. No additional perihepatic fluid collections. No overt bile duct dilatation. SPLEEN: Unremarkable. PANCREAS: Unremarkable. ADRENAL GLANDS: Unremarkable. KIDNEYS: Lobulated scarred appearance about the right kidney. Otherwise normal enhancement. No obstruction. ABDOMINAL AORTA: Unremarkable, nonaneurysmal. GASTROINTESTINAL TRACT: Asymmetric wall thickening centered at the hepatic flexure extending into the proximal transverse colon and distal ascending colon. Normal appendix. Moderate stool through the colon. URINARY BLADDER: Unremarkable. REPRODUCTIVE: Intrauterine conceptive device is present. OSSEOUS STRUCTURES: No acute abnormality. OTHER: None. IMPRESSION: 1. Interval cholecystectomy change. There is a fluid collection immediately following the previous position of the gallbladder. This appears to represent a intrahepatic biloma. Perhaps injury to the duct of Luschka. May be some additional area of a protrusion or bile stasis medially adjacent to this in the right hepatic lobe. MRCP imaging may be additional diagnostic utility. 2. Asymmetric wall thickening centered at the hepatic flexure the colon favors nonspecific colitis. Dictated by: Dictated on workstation # [id number]
== END 2022-04-09 14:25 | disposition home or self-care (01) ==
LOC: EDUNIT# 10:36 → ER 10:37
DX: S30.1XXA Contusion of abdominal wall, initial encounter (principal); K62.5 Hemorrhage of anus and rectum; R74.8 Abnormal levels of other serum enzymes; F17.210 Nicotine dependence, cigarettes, uncomplicated; Z90.49 Acquired absence of other specified parts of digestive tract; X58.XXXA Exposure to other specified factors, initial encounter
CPT/HCPCS: 36415; 74177; 80053; 81000; 82274; 83690; 84703; 85025; 87088

== ENCOUNTER 2022-06-03 17:15 | Emergency (ER) | payer MEDICAID ==
[~2022-06-03] VITALS: Ht 160 cm; Wt 75.2 kg
[2022-06-03 17:35] VITALS: BP 105/66
--- NOTE | 2022-06-03 17:35 | ED Back Pain ---
General Chief Complaint: Back Problems Stated Complaint: LOWER BACK PAIN Source of Information: Patient Exam Limitations: No Limitations History of Present Illness Date Seen by Provider: Jun 03, 2022 Time Seen by Provider: 17:35 Initial Comments Patient presents to the emergency department today for left sided lower back pain and leg pain. Denies specific injury that she is aware of. Just noticed it yesterday. Denies numbness, tingling, weakness, bowel and bladder dysfunction. No history of back problems in the past. Has been taking over the counter medications with mild improvement of symptoms. Unable to get comfortable due to the pain. Location: Lumbar Spine, Paraspinous Muscles Timing/Duration: 1 Day Severity: Moderate Pain/Injury Location: Back Radiation: Lower Legs Method of Injury: Unknown Modifying Factors: Improves With Immobilization; Worse With Movement; Improves With Pain Medication (improves slightly), Improves With Rest Associated Symptoms: No muscle spasms, No fever, No weakness, No numbness in legs/feet, No tingling in legs/feet, No loss of bladder control, No loss of bowel control Allergies and Home Medications Allergies Coded Allergies: Penicillins (Verified Allergy, Unknown, 04/01/22) Patient Home Medication List Home Medication List Reviewed: Yes Clonidine HCl (Clonidine HCl) 0.1 Mg Tablet, 0.1 MG PO HS, (Reported) Entered as Reported by: FRANCES QUINTANA on 03/30/22 1108 Clonidine HCl (Clonidine HCl) 0.1 Mg Tablet, 0.05 MG PO DAILY PRN for ANXIETY, (Reported) Entered as Reported by: CYNTHIA LOOMIS on 04/02/22 1028 Cyclobenzaprine HCl (Cyclobenzaprine HCl) 10 Mg Tablet, 10 MG PO Q8H PRN for SPASMS Prescribed by: Asha Brown on 06/03/22 3669 Hydrocodone/Acetaminophen (Hydrocodone-Acetamin 7.5-325) 7.5 Mg-325 Mg Tablet, 1 EACH PO Q4H PRN for PAIN-MODERATE (5-7), (Reported) Entered as Reported by: CYNTHIA LOOMIS on 04/02/22 1028 Lamotrigine (Lamotrigine) 25 Mg Tablet, 50 MG PO HS, (Reported) Entered as Reported by: FRANCES QUINTANA on 03/30/22 1108 Ondansetron HCl (Ondansetron HCl) 4 Mg Tablet, 4 MG PO Q4H PRN for NAUSEA/VOMITING-1ST LINE, (Reported) Entered as Reported by: CYNTHIA LOOMIS on 04/02/22 1028 Pantoprazole Sodium (Pantoprazole Sodium) 40 Mg Tablet.dr, 40 MG PO DAILY, (Reported) Entered as Reported by: CYNTHIA LOOMIS on 04/02/22 1028 Prednisone (Prednisone) 20 Mg Tab, 60 MG PO DAILY Prescribed by: Asha Brown on 06/03/22 174 Promethazine HCl (Promethazine Tablet) 25 Mg Tablet, 12.5 MG PO Q6H PRN for NAUSEA/VOMITING Prescribed by: MOHIT GOMES on 04/02/22 1229 Tramadol HCl (Tramadol HCl) 50 Mg Tablet, 50 MG PO Q6H PRN for PAIN Prescribed by: Asha Brown on 06/03/221748 Review of Systems Constitutional: No chills, No dizziness, No fever, No malaise, No weakness Respiratory: no symptoms reported Cardiovascular: no symptoms reported Gastrointestinal: no symptoms reported Genitourinary: no symptoms reported Musculoskeletal: back pain; No joint pain, No joint swelling; muscle pain; No muscle weakness Skin: no symptoms reported Psychiatric/Neurological: Denies Headache, Denies Numbness, Denies Paresthesia, Denies Tingling, Denies Weakness All Other Systems Reviewed Negative Unless Noted: Yes Past Zrogoll-Igqhzg-Yxhnwa Hx Immunizations Up To Date Tetanus Booster (TDap): Unknown First/Initial COVID19 Vaccinat: none Seasonal Allergies Seasonal Allergies: No Past Medical History Surgery/Hospitalization HX: CHOLECYSTECTOMY Surgeries: Yes (ovarian cystectomy x2, EGD with biopsy) Abdominal, Gallbladder Respiratory: No Currently Using CPAP: No Currently Using BIPAP: No Cardiac: No Neurological: No Reproductive Disorders: Yes Female Reproductive Disorders: Ovarian Cyst Genitourinary: No Gastrointestinal: Yes (H. pylori) Gastroesophageal Reflux, Gall Bladder Disease Musculoskeletal: No Endocrine: No HEENT: No Cancer: No Psychosocial: Yes Sleep Difficulties, Anxiety Integumentary: No Blood Disorders: No Family Medical History Reviewed Nursing Family Hx Physical Exam Vital Signs Vital Signs - First Documented 06/03/22 17:35 Temp 36.0 Pulse 74 Resp 16 B/P (MAP) 105/66 (79) Pulse Ox 99 Capillary Refill : Height, Weight, BMI Height: '" Weight: lbs. oz. kg; 29.00 BMI Method: General Appearance: No Apparent Distress, WD/WN Cardiovascular: Regular Rate, Rhythm, No Edema Respiratory: Chest Non Tender, Lungs Clear, Normal Breath Sounds, No Accessory Muscle Use, No Respiratory Distress Gastrointestinal: Normal Bowel Sounds, No Organomegaly, No Pulsatile Mass, Non Tender, Soft Back: No CVA Tenderness, No Vertebral Tenderness, Muscle Spasm (left lower back); No Vertebral Tenderness; Other (left lower paraspinal muscle spasm and tenderness to palpation) Neurologic/Psychiatric: Alert, Oriented x3 Skin: Normal Color, Warm/Dry Progress/Results/Core Measures Results/Orders My Orders Orders - ASHA BROWN APRN Ketorolac Injection (Toradol Injection) (06/03/22 17:45) Prednisone Tablet (Deltasone Tablet) (06/03/22 17:45) Orphenadrine Inj (Ed Only) (Norflex Inje (06/03/22 17:45) Vital Signs/I&O 06/03/22 17:35 Temp 36.0 Pulse 74 Resp 16 B/P (MAP) 105/66 (79) Pulse Ox 99 Progress Progress Note : Progress Note Patient with no known specific back injury that she is aware of. Symptoms consistent with sciatica. Will give IM medications and then prescriptions for home. Home discharge instructions were reviewed with patient along with reasons to return to the ER. No focal neuro findings or red flag findings were appreciated on exam. Reasons to return to the ER were discussed with patient in addition. Departure Impression Primary Impression: Left-sided low back pain with sciatica Qualified Codes: M54.42 - Lumbago with sciatica, left side Disposition: 01 HOME, SELF-CARE Condition: Stable Departure-Patient Inst. Decision time for Depature: 17:46 Referrals: [facility] (PCP/Family) Primary Care Physician Patient Instructions: Low Back Pain ED, Sciatica (DC) Add. Discharge Instructions: 1. Home and rest. 2. Push fluids. 3. Alternate Tylenol/Ibuprofen as needed for pain. 4. Tramadol as needed for severe pain. NO driving while taking this medication. 5. Cyclobenzaprine as directed as needed. NO driving while taking this medication. 6. Start Prednisone tomorrow AM. Try and take this medication as early in the day as possible and with food to prevent stomach upset. 7. Follow up with PCP as needed. 8. Heating pad to lower back as needed for pain. 9. Return here if worse or concerns. All discharge instructions reviewed with patient and/or family. Voiced understanding. Scripts Cyclobenzaprine HCl (Cyclobenzaprine HCl) 10 Mg Tablet 10 MG PO Q8H PRN for SPASMS, #15 TAB 0 Refills Prov: ASHA BROWN APRN 06/03/22 Prednisone (Prednisone) 20 Mg Tab 60 MG PO DAILY, #15 TAB 0 Refills Prov: ASHA BROWN APRN 06/03/22 Tramadol HCl (Tramadol HCl) 50 Mg Tablet 50 MG PO Q6H PRN for PAIN, #10 TAB Prov: ASHA BROWN APRN 06/03/22 ASHA BROWN APRN Jun 03, 2022 17:35
[2022-06-03] MEDS ORDERED: KETOROLAC 60 MG/2 ML VIAL IM ONE (17:45)
[2022-06-03] MEDS ORDERED: predniSONE 20 MG TAB PO ONE (17:45)
[2022-06-03] MEDS ORDERED: ORPHENADRINE 60 MG/2 ML (NORFLEX) AMP (ED ONLY) IM ONE (17:45)
[2022-06-03] MEDS ORDERED: PRD20T PO (17:49)
[2022-06-03] MEDS ORDERED: CYCL10TA25 PO (17:49)
[2022-06-03] MEDS ORDERED: TRM50T PO (17:49)
== END 2022-06-03 18:07 | disposition home or self-care (01) ==
LOC: EDUNIT# 17:15 → ER 17:17
DX: M54.42 Lumbago with sciatica, left side (principal); Z28.310 Unvaccinated for COVID-19
CPT/HCPCS: 96372; 99284

== ENCOUNTER 2022-07-27 14:00 | Emergency (ER) | payer MEDICAID ==
[~2022-07-27] VITALS: Ht 160 cm; Wt 75.7 kg
[~2022-07-27 14:00] MED LIST changes: +CYCL10TA25 PO; +PRD20T PO; +TRM50T PO
--- NOTE | 2022-07-27 14:49 | ED EENT ---
History of Present Illness General Chief Complaint: Ear Problems Stated Complaint: RT EAR PAIN Nursing Triage Note: RIGHT EAR PAIN STARTING YESTERDAY. Source: patient Exam Limitations: no limitations (JOEL TRUJILLO) History of Present Illness Date Seen by Provider: Jul 27, 2022 Time Seen by Provider: 14:44 Initial Comments Patient is a 32 y/o F who presents with CC of right ear pain onset 1 day ago. Patient reports pain radiates into neck and jaw. She states she also had a fever of 99.2 yesterday with right sided temporal headache. She rates the pain at 9/10 and states it is constant and sharp. She has used Tylenol and Ibuprofen but it seems to wear off. She also states being exposed to the cold and wind makes it worse. Denies any sick contacts. She also states she has not received the COVID or flu shots. Timing/Duration: yesterday Location: ear (R) Associated Symptoms: No cough, No ear drainage; facial pain/swelling, fever; No nasal congestion/drainage, No sore throat, No tooth pain (JOEL TRUJILLO) Allergies and Home Medications Allergies Coded Allergies: Penicillins (Verified Allergy, Unknown, 04/01/22) Patient Home Medication List Home Medication List Reviewed: Yes (JOEL TRUJILLO) Home Medication List Reviewed: Yes (JESSICA DAVIS MD) Clonidine HCl (Clonidine HCl) 0.1 Mg Tablet, 0.1 MG PO HS, (Reported) Entered as Reported by: FRANCES QUINTANA on 03/30/22 1108 Clonidine HCl (Clonidine HCl) 0.1 Mg Tablet, 0.05 MG PO DAILY PRN for ANXIETY, (Reported) Entered as Reported by: CYNTHIA LOOMIS on 04/02/22 1028 Cyclobenzaprine HCl (Cyclobenzaprine HCl) 10 Mg Tablet, 10 MG PO Q8H PRN for SPASMS Prescribed by: Asha Patel on 06/03/22 1749 Hydrocodone/Acetaminophen (Hydrocodone-Acetamin 7.5-325) 7.5 Mg-325 Mg Tablet, 1 EACH PO Q4H PRN for PAIN-MODERATE (5-7), (Reported) Entered as Reported by: CYNTHIA LOOMIS on 04/02/22 1028 Lamotrigine (Lamotrigine) 25 Mg Tablet, 50 MG PO HS, (Reported) Entered as Reported by: FRANCES QUINTANA on 03/30/22 1108 Ondansetron HCl (Ondansetron HCl) 4 Mg Tablet, 4 MG PO Q4H PRN for NAUSEA /VOMITING-1ST LINE, (Reported) Entered as Reported by: CYNTHIA LOOMIS on 04/02/22 1028 Pantoprazole Sodium (Pantoprazole Sodium) 40 Mg Tablet.dr, 40 MG PO DAILY, (Reported) Entered as Reported by: CYNTHIA LOOMIS on 04/02/22 1028 Prednisone (Prednisone) 20 Mg Tab, 60 MG PO DAILY Prescribed by: Asha Patel on 06/03/22 174 Promethazine HCl (Promethazine Tablet) 25 Mg Tablet, 12.5 MG PO Q6H PRN for NAUSEA/VOMITING Prescribed by: MOHIT GOMES on 04/02/22 1229 Tramadol HCl (Tramadol HCl) 50 Mg Tablet, 50 MG PO Q6H PRN for PAIN Prescribed by: Asha Patel on 06/03/22 174 Review of Systems Review of Systems Constitutional: No chills; fever Eyes: Denies Blurred Vision; Other ("spots in vision on right side") Ears: Pain; Denies Bloody Discharge, Denies Clear Discharge, Denies Purulent Discharge Mouth: denies pain Throat: denies pain, denies swelling, denies discharge Neurological: Headache; Denies Numbness (SUBBARAO,JOEL) Ears: Pain Throat: other (pain to right side of neck) (JESSICA DAVIS MD) Past Tknvthr-Lsdveh-Cpfqug Hx Patient Social History Tobacco Use?: Yes Tobacco type used: Cigarettes Substance type: Marijuana Alcohol Use?: Yes Alcohol Frequency: Rarely (SUBBARAO,JOEL) Immunizations Up To Date Tetanus Booster (TDap): Unknown First/Initial COVID19 Vaccinat: none Second COVID19 Vaccination Yann: none Third COVID19 Vaccination Date: none (SUBBARAO,JOEL) Seasonal Allergies Seasonal Allergies: No (SUBBARAO,JOEL) Past Medical History Surgery/Hospitalization HX: CHOLECYSTECTOMY Surgeries: Yes (ovarian cystectomy x2, EGD with biopsy) Abdominal, Gallbladder Respiratory: No Currently Using CPAP: No Currently Using BIPAP: No Cardiac: No Neurological: No Reproductive Disorders: Yes Female Reproductive Disorders: Ovarian Cyst Genitourinary: No Gastrointestinal: Yes (H. pylori) Gastroesophageal Reflux, Gall Bladder Disease Musculoskeletal: No Endocrine: No HEENT: No Cancer: No Psychosocial: Yes Sleep Difficulties, Anxiety Integumentary: No Blood Disorders: No ([facility]) Physical Exam Vital Signs Vital Signs - First Documented 07/27/22 14:10 Temp 37.0 Pulse 75 Resp 16 B/P (MAP) 108/70 (83) Pulse Ox 98 O2 Delivery Room Air (JESSICA DAVIS MD) Height, Weight, BMI Height: '" Weight: lbs. oz. kg; 29.00 BMI Method: General Appearance: WD/WN, no apparent distress Ears: right ear discharge (yellow cerumen), right ear erythema; left ear auricle normal, left ear canal normal; bilateral ear other (purulence seen behind tms, more on right) Mouth/Throat: normal mouth inspection, pharynx normal Neck: full range of motion, supple, lymphadenopathy (R) Cardiovascular: regular rate, rhythm, no murmur Respiratory: chest non-tender, lungs clear, normal breath sounds, no respiratory distress, no accessory muscle use Neurologic/Psychiatric: alert, normal mood/affect, oriented x 3 Skin: normal color, warm/dry ([facility] General Appearance: WD/WN, no apparent distress Eyes: bilateral eye normal inspection, bilateral eye PERRL, bilateral eye EOMI Ears: right ear tenderness, right ear TM dull, right ear TM bulging; bilateral ear auricle normal, bilateral ear canal normal, bilateral ear other (purulence seen behind tms, more on right) Mouth/Throat: normal mouth inspection, pharynx normal; No dental tenderness Neck: other (tenderness over the right SCM no erythema/rash) Respiratory: no respiratory distress, no accessory muscle use Neurologic/Psychiatric: alert, normal mood/affect, oriented x 3 Skin: normal color, warm/dry (JESSICA DAVIS MD) Progress/Results/Core Measures Results/Orders My Orders Orders - JESSICA DAVIS MD Ketorolac Injection (Toradol Injection) (07/27/22 15:15) (JESSICA DAVIS MD) Vital Signs/I&O 07/27/22 14:10 Temp 37.0 Pulse 75 Resp 16 B/P (MAP) 108/70 (83) Pulse Ox 98 O2 Delivery Room Air (JESSICA DAVIS MD) Blood Pressure Mean: 83 Progress Progress Note : Time: 15:14 Progress Note 32-year-old female presents with right-sided otalgia, neck pain facial discomfort. Denies dental pain. Has had subjective fever, taking Tylenol and ibuprofen without relief. Has not been taking any other allergy medications. Evaluation shows purulence behind the right TM. No erythema. She is afebrile h ere. No significant lymphadenopathy. Quite tender to touch over the mid sternocleidomastoid muscle on the right. Neurologically normal. Patient will be treated with tfxi-uys-shrpvir decongestant such as Sudafed and Claritin or Zyrtec. Return precautions provided. (JESSICA DAVIS MD) Departure Impression Primary Impression: Otalgia of right ear Additional Impression: Ear congestion Qualified Codes: H93.8X1 - Other specified disorders of right ear Disposition: HOME, SELF-CARE Condition: Stable Departure-Patient Inst. Decision time for Depature: 15:12 (JESSICA DAVIS MD) Referrals: [facility] [place] ([place]) Primary Care Physician Patient Instructions: Fluid in the Ear ED Add. Discharge Instructions: Start an over the counter allergy pill like generic claritin or Zyrtec daily for the next week - 10 days. Take the pseudaphed as needed every 6 hours for the next 2-3 days. Drink lots of water as this medication will make you feel "dry"/thirsty. Ibuprofen 200mg tablets - take 3 every 6 hours as needed for pain with food. If you run a high fever, have worsening pain, vomiting or any other emergent, concerning symptoms, please come back to the Emergency Department for re- evaluation. Scripts Pseudoephedrine HCl (Pseudoephedrine HCl) 60 Mg Tablet 60 MG PO Q6H PRN for congestion, #30 TAB Prov: JESSICA DAVIS MD 07/27/22 Verification and Attestation of Medical Student E/M Service A medical student performed and documented this service in my presence. I reviewed and verified all information documented by the medical student and made modifications to such information, when appropriate. I personally performed the physical exam and medical decision making. Jessica Davis, Jul 27, 2022,15:17 (JESSICA DAVIS MD) JOEL TRUJILLO Jul 27, 2022 14:49 JESSICA DAVIS MD Jul 27, 2022 15:16
[2022-07-27] MEDS ORDERED: KETOROLAC 30 MG/ML VIAL IM ONE (15:15)
[2022-07-27] MEDS ORDERED: PSEU60TA88 PO (15:16)
[2022-07-27 15:24] VITALS: BP 107/71
== END 2022-07-27 15:25 | disposition home or self-care (01) ==
LOC: EDUNIT# 14:00 → ER 14:02
DX: H83.8X1 Other specified diseases of right inner ear (principal); H92.01 Otalgia, right ear; M54.2 Cervicalgia; R50.9 Fever, unspecified; F17.210 Nicotine dependence, cigarettes, uncomplicated; Z28.310 Unvaccinated for COVID-19
CPT/HCPCS: 99284

== ENCOUNTER 2022-10-27 08:07 | Outpatient (CLI) | payer MEDICAID ==
[~2022-10-27] VITALS: Ht 160 cm; Wt 77.7 kg
[~2022-10-27 08:07] MED LIST changes: +PSEU60TA88 PO
[2022-10-27] MEDS ORDERED: TOPI50TA37 PO (10:53)
[2022-10-27] MEDS ORDERED: ETHINYL ESTRADIOL PO (10:53)
[2022-10-27] MEDS ORDERED: DULO30CA49 PO (10:53)
[2022-10-27] MEDS ORDERED: LEVO75CA5 PO (10:53)
[2022-10-27] MEDS ORDERED: LAMO100T5 PO (12:21)
[2022-10-27] MEDS ORDERED: CARI1.5C PO (12:21)
[2022-10-27] MEDS ORDERED: DICL50TA6 PO (12:21)
[2022-10-27] MEDS ORDERED: NF-ESOM40C PO (12:21)
[2022-10-27] MEDS ORDERED: MULT-141 PO (12:21)
[2022-10-27] MEDS ORDERED: CLN.1T PO (12:21)
[2022-10-27] MEDS ORDERED: CIME200T90 PO (12:21)
[2022-10-28] MEDS ORDERED: HYDR15SO8 PO (14:49)
== END 2022-10-27 13:33 | disposition home or self-care (01) ==
LOC: PREOP 08:07
PROVIDERS: ATTEND Surgery
DX: Z01.818 Encounter for other preprocedural examination (principal)

== ENCOUNTER 2022-10-28 14:09 | Day surgery (SDC) | payer MEDICAID ==
[2022-10-28] VITALS (8 sets, daily range): BP systolic 106–126; BP diastolic 53–68
[~2022-10-28] VITALS: Ht 160 cm; Wt 77.7 kg
[~2022-10-28 14:09] MED LIST changes: +CARI1.5C PO; +CIME200T90 PO; +DICL50TA6 PO; +DULO30CA49 PO; +ETHINYL ESTRADIOL PO; +LAMO100T5 PO; +LEVO75CA5 PO; +MULT-141 PO; +NF-ESOM40C PO; +TOPI50TA37 PO
[2022-10-28] MEDS ORDERED: CLINDAMYCIN 600 MG/50 ML IVPB 50 ML IV ONE (14:15)
[2022-10-28] MEDS ORDERED: LIDOCAINE/EPI 1%-1:100,000 (XYLOCAINE) 20ML ONE (14:36)
[2022-10-28] MEDS ORDERED: ROCURONIUM 50 MG/5 ML (ZEMURON) VIAL IV ONE (14:43)
[2022-10-28] MEDS ORDERED: proPOfol 200 MG/20 ML (DIPRIVAN) VIAL IV ONE (14:44)
[2022-10-28] MEDS ORDERED: LIDOCAINE PF 2% 5 ML (XYLOCAINE) VIAL ONE (14:44)
[2022-10-28] MEDS ORDERED: ONDANSETRON 4 MG/2 ML (SDV) Z0FRAN ONE ×2 (14:44→16:45)
[2022-10-28] MEDS ORDERED: FAMOTIDINE 20MG/2ML IV (PEPCID) IV ONE (14:45)
[2022-10-28] MEDS ORDERED: fentaNYL INJ 100 MCG/2 ML AMP ONE (14:45)
[2022-10-28] MEDS ORDERED: MIDAZOLAM 2 MG/2 ML (VERSED) VIAL ONE (14:45)
[2022-10-28] MEDS ORDERED: SCOPOLAMINE 1.5 MG (TRANSDERM-SCOP) PATCH TOP ONE (14:45)
[2022-10-28] MEDS ORDERED: ONDANSETRON 4 MG/2 ML (SDV) Z0FRAN IV ONE (14:45)
--- NOTE | 2022-10-28 14:46 | Progress Note-Pre Operative ---
Pre-Operative Progress Note Date H&P Reviewed: Oct 28, 2022 Time H&P Reviewed: 14:45 History & Physical: H&P Reviewed, Patient Examed, No changes noted Pre-Operative Diagnosis: Symptomatic hiatal hernia, GERD SAMUEL GUEVARA APRN Oct 28, 2022 14:46
[2022-10-28] MEDS ORDERED: HYDR15SO8 PO (14:49)
--- NOTE | 2022-10-28 14:52 | Discharge Inst-Surgical ---
D/C Lap Instructions-KIDO Reconcile Patient Problems Problems Reviewed?: Yes New, Converted, or Re-Newed RX: RX on Chart Follow Up Appt in 2 weeks Activity as tolerated No driving for 24 hours No driving while on pain medications Incentive Spirometry use every 2 hours while awake Clear liquid diet x5 days, soft food x5 days, regular diet x5 days No carbonated beverages, leafy greens, breads, or crackers for 6 weeks. Symptoms to Report: Fever over 101 degree F, Nausea/Vomiting Infection Signs and Symptoms to report: Increased redness, Foul odor of wound, Increased drainage Bathing instructions: May shower Operative Area Clean/Dry; Keep incision clean/dry If any problems/questions: Contact your physician or go to Emergency Room SAMUEL GUEVARA APRN Oct 28, 2022 14:52
[2022-10-28] MEDS ORDERED: NS IV 1000 ML 1,000 ML IV SCH (15:00)
[2022-10-28] MEDS ORDERED: ONDANSETRON 4 MG/2 ML (SDV) Z0FRAN IV PRN (15:00)
[2022-10-28] MEDS ORDERED: diphenhydrAMINE 50 MG/ML INJ (BENADRYL) IV PRN (15:00)
[2022-10-28] MEDS ORDERED: ONDANSETRON 4 MG/2 ML (SDV) Z0FRAN IVP PRN ×2 (15:00→17:00)
[2022-10-28] MEDS ORDERED: NALOXONE 0.4 MG/ML 1 ML (NARCAN) VIAL IV PRN (15:00)
[2022-10-28] MEDS ORDERED: METOCLOPRAMIDE INJ 10 MG/2 ML (REGLAN) IV PRN (15:00)
[2022-10-28] MEDS ORDERED: diphenhydrAMINE 50 MG/ML INJ (BENADRYL) IVP PRN (15:00)
[2022-10-28] MEDS: LACTATED RINGERS 1,000 ML IV PRN ×2 (15:01→16:10)
[2022-10-28] MEDS ORDERED: LIDOCAINE/EPI 1%-1:100,000 (XYLOCAINE) 20ML INJ ONE (16:10)
--- NOTE | 2022-10-28 16:29 | Progress Note-Post Operative ---
Post-Operative Progess Note Surgeon (s)/Cutting Department Supervisor (s) Surgeon MOHIT GOMES MD Cutting Department Supervisor: ava saucedo HAND BULLDOZER Pre-Operative Diagnosis Symptomatic hiatal hernia, GERD Post-Operative Diagnosis same Procedure & Operative Findings Date of Procedure 10/28/22 Procedure Performed/Findings hiatal hernia repair with loose danyell fundoplication. Anesthesia Type get Estimated Blood Loss Estimated blood loss (mL): minimal Specimens/Packing Specimens Removed none MOHIT GOMES MD Oct 28, 2022 16:29
[2022-10-28] MEDS ORDERED: SEVOFLURANE (ULTANE) 15 ML INHAL SOLN ONE (16:35)
[2022-10-28] MEDS ORDERED: GLYCOPYRROLATE 0.2 MG/ML (ROBINUL) 2 ML VIAL ONE (16:36)
[2022-10-28] MEDS ORDERED: NEOSTIGMINE (BLOXIVERZ ) 1 MG/1ML 10 ML VIAL ONE (16:36)
[2022-10-28] MEDS ORDERED: SUCCINYLCHOLINE INJ 20 MG/1 ML 10 ML VIAL ONE (16:37)
[2022-10-28] MEDS ORDERED: morphine INJ 10 MG/ML 1ML (SYR OR VIAL) ONE (16:51)
[2022-10-28] MEDS ORDERED: KETOROLAC 30 MG/ML VIAL ONE (16:51)
[2022-10-28] MEDS ORDERED: PROMETHAZINE INJ 25 MG/ML (PHENERGAN) AMP ONE (16:59)
[2022-10-28] MEDS ORDERED: morphine INJ 10 MG/ML 1ML (SYR OR VIAL) IVP ONE (17:00)
[2022-10-28] MEDS ORDERED: MEPERIDINE (DEMEROL) INJ 50 MG/ML IVP ONE (17:00)
[2022-10-28] MEDS ORDERED: HYDROmorphone 2 MG/ML VIAL (DILAUDID) IV ONE (17:00)
[2022-10-28] MEDS ORDERED: PROMETHAZINE INJ 25 MG/ML (PHENERGAN) AMP IVP ONE (17:00)
[2022-10-28] MEDS ORDERED: KETOROLAC 30 MG/ML VIAL IVP ONE (17:00)
--- NOTE | 2022-10-28 17:12 | Anesthesia-General Post-Op ---
General Patient Condition Mental Status/LOC: Same as Preop Cardiovascular: Satisfactory Nausea/Vomiting: Absent Respiratory: Satisfactory Pain: Controlled Complications: Absent Post Op Complications Complications None Follow Up Care/Instructions Patient Instructions None needed. Anesthesia/Patient Condition Patient Condition Patient is doing well, no complaints, stable vital signs, no apparent adverse anesthesia problems. No complications reported per nursing. ROBE BORREGO CRNA Oct 28, 2022 17:12
[2022-10-28] MEDS: fentaNYL INJ 100 MCG/2 ML AMP IVP PRN (18:30)
[2022-10-28] MEDS: 1/2 NS W/KCL 20 MEQ/L 1,000 ML IV SCH ×2 (18:30→22:17)
--- NOTE | 2022-10-28 18:52 | OPERATIVE REPORT ---
DATE OF SERVICE: 10/28/2022 ATTENDING CORPORATE RESPONSIBILITY OFFICER: [facility]. PREOPERATIVE DIAGNOSES: Persistent gastroesophageal reflux disease and moderate size hiatal hernia approximately 3 cm in size. POSTOPERATIVE DIAGNOSES: Persistent gastroesophageal reflux disease and moderate size hiatal hernia approximately 3 cm in size. PROCEDURE: Laparoscopic hiatal hernia repair and loose Halima fundoplication. SURGEON: Mohit Gomes MD FLAME ANNEALING MACHINE OPERATOR: Patricio Aguirre APRN ANESTHESIA: General endotracheal. ESTIMATED BLOOD LOSS: Minimal. FINDINGS: A 3 cm hiatal hernia. DISPOSITION: The patient tolerated the procedure well. INDICATIONS: The patient is a 32-year-old female who has had a longstanding history of gastroesophageal reflux disease and peptic ulcer disease. She has been treated with a number of proton pump inhibitors, which has initially helped; however, became less effective over time. She also was found to have H. pylori gastritis and was eventually treated. She also had developed pain in the right upper abdominal quadrant and she underwent an ultrasound, which did not show any gallstones and then she underwent a HIDA scan with a low ejection fraction of 36% and she also did have reproduction of symptoms upon administration of the Kinevac analogue with nausea and vomiting consistent with a biliary dyskinesia and on 04/01/2022, she underwent a laparoscopic cholecystectomy as well as an EGD. Findings on the EGD were a reflux esophagitis, [place] grade C with moderate size hiatal hernia, 3 cm in size. We had again try medical management with changing up her acid reducers as well as dietary and lifestyle changes with a small and more frequent meals, avoidance of eating at night as well as head elevation while lying supine. She was also instructed to avoid caffeinated beverages, spicy, greasy and acidic foods as well as to stop vaping. She continued to have symptoms and underwent an esophageal manometry study, which showed normal waveforms contractions of the esophagus as well as the shortened gastroesophageal junction consistent with a hiatal hernia. We recommended a hiatal hernia repair as well as loose Halima fundoplication, which she agreed to. DESCRIPTION OF PROCEDURE: The patient was brought to the operating room, laid supine on the table. After adequate IV pain, sedative medications and general endotracheal intubation, the abdomen was prepped and draped in standard surgical fashion. A 0.5% Marcaine with epinephrine was used to anesthetize the overlying skin in the left upper abdominal quadrant and a transverse skin incision made using a #15 blade. An 0 silk suture was applied to the medial aspect of the incision for retraction and a Veress needle inserted with a low opening pressure of 0 mmHg. The abdomen was then insufflated to 15 mmHg pressure. The Veress needle removed and a 5 mm XL trocar placed followed by a 5 mm 45-degree angle laparoscope visualizing the peritoneal cavity. A 4-quadrant abdominal exploration was performed. The gallbladder was surgically absent. Liver appeared normal. After the liver retractor was placed, she was found to have what appeared to be a type 3 hiatal hernia approximately 3 cm in size. Under direct visualization, we then proceeded to place a mid abdominal left of midline 10 mm port after the skin and peritoneal lining were anesthetized using 0.5% Marcaine with epinephrine and a transverse skin incision made using a #15 blade. We then proceeded to place a midabdominal right of midline 10 mm port and a right upper abdominal quadrant 5 mm port. The epigastric region was then anesthetized and a transverse skin incision made using 11 blade and a tract created through the abdominal wall layers using a trocar to a 5 mm port and through this opening, a medium size Elizabeth liver retractor was placed and the left lobe of the liver retracted anteriorly and superiorly. The patient was then placed in steep reverse Trendelenburg position. We then proceeded to dissect the hernia sac circumferentially. We started at the pars flaccida using the Sonicision and proceeded anteriorly. We then proceeded inferiorly, taking out the entirety of the hernia sac as well as dissecting out the left and right tara of the diaphragm. We were able to dissect bluntly to the angle of His. Good hemostasis was observed. We then proceeded to take down the angle of His connective tissue fibers and dissected the stomach to the left tara of the diaphragm was identified. A 38-Belgian ViSiGi bougie was then placed under direct visualization and directed into the stomach. Using this as a rough guide, we then proceeded to approximate the left and right tara of the diaphragm using interrupted 2-0 Surgidac sutures, leaving a space to prevent the hiatus from being too tight. Good hemostasis was observed. The fundus of the gallbladder was then wrapped around posteriorly and we then proceeded with our 360-degree Halima fundoplication wrap loosely encompassing both sides of the stomach as well as the anterior portion of the diaphragm and the esophagus using interrupted 2-0 Surgidac sutures with a suture line greater than 2 cm in length. Good hemostasis was observed. The ViSiGi was then removed. The liver retractor was then removed followed by closing of the fascia and the peritoneal lining to the 10 port site using a Eric-Severiano device and 0 Vicryl suture. The abdomen was desufflated and remaining ports removed. All skin incisions were closed using 4-0 Monocryl running subcuticular sutures. Wounds were then cleaned and covered with Dermabond. The patient tolerated the procedure well. We will admit for 23-hour observation. We will start clear liquid diet and also proceed with pain control with IV as well as oral pain medications. We will also proceed with DVT prophylaxis with early ambulation, calf SCDs, as well as Lovenox injections. Once she is able to tolerate liquids, has good pain control with oral pain medications, ambulating well, we will then discharge her home. We will recommend that she follow up with a clear liquid diet for the next 5 days and then the next following 5 days, mechanical soft diet and a regular diet; however, hold off on copious amounts of dry bread and crackers, raw vegetables like salads as well as carbonated beverages until 6 weeks from the surgery date. She was also instructed to do no heavy lifting or exertion for the next 2 weeks as well. Job ID: [id number] DocumentID: [id number] Dictated Date: 10/28/2022 16:43:35 [employer] Date: 10/28/2022 18:49:00 Dictated By: MOHIT GOMES MD MTDD
[2022-10-28] MEDS: HYDROcodone/APAP 7.5MG-325 MG/15 ML (LORTAB) UDC PO PRN (21:14)
[2022-10-28] MEDS: CLINDAMYCIN 900 MG/50 ML IVPB 50 ML IV SCH (21:14)
[2022-10-28] MEDS: ENOXAPARIN INJECTION 30 MG/0.3 ML SYR SC SCH (21:15)
[2022-10-28] MEDS: RT-ALBUTEROL SULF 2.5 MG/3 ML PRE-MIX VIAL INH SCH (22:20)
[2022-10-29] VITALS: BP 111/69
[2022-10-29] MEDS: HYDROcodone/APAP 7.5MG-325 MG/15 ML (LORTAB) UDC PO PRN ×2 (01:41→09:00)
[2022-10-29 04:00] VITALS: BP 123/62
[2022-10-29] MEDS: 1/2 NS W/KCL 20 MEQ/L 1,000 ML IV SCH (04:34)
[2022-10-29] MEDS: CLINDAMYCIN 900 MG/50 ML IVPB 50 ML IV SCH (05:34)
[2022-10-29 05:35] LABS: HEMATOCRIT 38 % (35-52); HEMOGLOBIN 12.9 g/dL (11.5-16.0); MEAN CORPUSCULAR HEMOGLOBIN 30 pg (25-34); MEAN CORPUSCULAR HGB CONC 34 g/dL (32-36); MEAN CORPUSCULAR VOLUME 89 fL (80-99); MEAN PLATELET VOLUME 9.1 fL (9.0-12.2); PLATELET COUNT 292 10^3/uL (130-400); WHITE BLOOD COUNT 14.5 10^3/uL (4.3-11.0)
[2022-10-29] MEDS: RT-ALBUTEROL SULF 2.5 MG/3 ML PRE-MIX VIAL INH SCH (07:26)
[2022-10-29 08:54] VITALS: BP 120/63
[2022-10-29] MEDS ORDERED: PANTOPRAZOLE 40 MG (PROTONIX) VIAL IV SCH (09:00)
[2022-10-29] MEDS ORDERED: SENNA W/DOCUSATE (SENOKOT S) TABLET PO SCH (09:00)
[2022-10-29] MEDS: ENOXAPARIN INJECTION 30 MG/0.3 ML SYR SC SCH (09:00)
[2022-10-29] MEDS: fentaNYL INJ 100 MCG/2 ML AMP IVP PRN (10:06)
[2022-10-29 11:38] VITALS: BP 129/56
--- NOTE | 2022-10-29 11:53 | Progress Note ---
Subjective Date Seen by a Provider: Oct 29, 2022 Time Seen by a Provider: 11:00 Subjective/Events-last exam doing well. tolerating liquids. no nausea/vomiting. pain controlled with PO meds. Objective Exam Vital Signs Date Time Temp Pulse Resp B/P (MAP) Pulse Ox O2 Delivery O2 Flow Rate FiO2 10/29/22 11:38 37.3 101 18 129/56 (80) 97 Room Air 10/29/22 09:00 Room Air 10/29/22 08:54 37.0 81 18 120/63 (82) 95 Room Air 10/29/22 07:27 98 Room Air 10/29/22 04:00 36.5 75 18 123/62 (82) 96 Room Air 10/29/22 00:00 37.0 65 18 111/69 (83) 99 Room Air 10/28/22 22:20 94 Room Air 10/28/22 21:00 99 Room Air 10/28/22 19:38 37.3 72 18 115/68 (84) 97 Room Air 10/28/22 17:40 98 Room Air 10/28/22 17:35 Room Air 10/28/22 17:30 36.8 24 118/63 (81) 98 Room Air 10/28/22 17:25 OxyMask 2.00 10/28/22 17:20 24 123/63 (83) 100 OxyMask 2.00 10/28/22 17:10 OxyMask 4.00 10/28/22 17:10 21 123/58 (79) 100 OxyMask 4.00 10/28/22 17:00 24 116/53 (74) 100 OxyMask 4.00 10/28/22 16:55 OxyMask 8 10/28/22 16:50 20 126/57 (80) 100 OxyMask 8 10/28/22 16:42 36.7 20 123/66 (85) 100 OxyMask 8 10/28/22 16:42 OxyMask 8 10/28/22 14:30 36.8 80 20 106/67 (80) 99 Room Air I & O 10/29/22 07:00 Intake Total 2335 ml Output Total 1650 ml Balance 685 ml Capillary Refill : General Appearance: No Apparent Distress HEENT: PERRL/EOMI Neck: Full Range of Motion Respiratory: Chest Non Tender, Lungs Clear, Normal Breath Sounds Cardiovascular: Regular Rate, Rhythm Gastrointestinal: soft, tenderness Extremity: Normal Capillary Refill Neurologic/Psychiatric: Alert, Oriented x3 Skin: Normal Color Lymphatic: No Adenopathy Results Lab Laboratory Tests 10/29/22 05:20: White Blood Count 14.5H, Red Blood Count 4.24, Hemoglobin 12.9, Hematocrit 38, Mean Corpuscular Volume 89, Mean Corpuscular Hemoglobin 30, Mean Corpuscular Hemoglobin Concent 34, Red Cell Distribution Width 13.3, Platelet Count 292, Mean Platelet Volume 9.1 Assessment/Plan Assessment/Plan Assess & Plan/Chief Complaint s/p lap HH hernia repair and danyell fundoplication. MOHIT GOMES MD Oct 29, 2022 11:53
[2022-10-29] MEDS ORDERED: METOCLOPRAMIDE INJ 10 MG/2 ML (REGLAN) IVP PRN (15:00)
== END 2022-10-29 12:10 | disposition home or self-care (01) ==
LOC: SDC 14:09 → 4TH 17:40 → SDC 10-29 12:10
PROVIDERS: ATTEND Surgery
DX: K44.9 Diaphragmatic hernia without obstruction or gangrene (principal); K21.00 Gastro-esophageal reflux disease with esophagitis, without bleeding; F17.290 Nicotine dependence, other tobacco product, uncomplicated; Z87.11 Personal history of peptic ulcer disease; Z28.310 Unvaccinated for COVID-19
CPT/HCPCS: 36415; 84703; 85027; 87081; 94640; 94664; G0378

== ENCOUNTER 2022-11-04 14:07 | Emergency (ER) | payer MEDICAID ==
[~2022-11-04] VITALS: Ht 160 cm; Wt 78.0 kg
[~2022-11-04 14:07] MED LIST changes: +HYDR15SO8 PO
[2022-11-04] MEDS ORDERED: NS IV 1000 ML 1,000 ML IV STA (14:26)
[2022-11-04] MEDS ORDERED: ONDANSETRON 4 MG/2 ML (SDV) Z0FRAN IVP ONE (14:30)
[2022-11-04] MEDS ORDERED: morphine INJ 10 MG/ML 1ML (SYR OR VIAL) IVP ONE ×2 (14:30→15:45)
[2022-11-04] MEDS ORDERED: IOHEXOL 350 MG/ML 100 ML (OMNIPAQUE 350) VIAL IV ONE (14:30)
[2022-11-04] MEDS ORDERED: NS 100 ML (IVPB) BAG IV ONE (14:30)
--- NOTE | 2022-11-04 14:30 | ED Abdominal Pain ---
General Chief Complaint: Abdominal/GI Problems Stated Complaint: POST OP HERNIA PAIN Nursing Triage Note: Patient ambulatory to ER w c/o upper abdominal pain. 06/07 Patient is 7 days post op hiatal hernia surgery. Pain started at 3am today pain and nausea came together. Pain and nausea medicine is not working. Source of Information: Patient Exam Limitations: No Limitations History of Present Illness Date Seen by Provider: Nov 04, 2022 Time Seen by Provider: 14:28 Initial Comments Patient is a 32-year-old female with a history of GERD, hiatal hernia repair who presents ED with upper abdominal pain. Acute pain started around 3:00 this morning described as sharp without radiation. Describes pain as twisting and grinding sensation in her upper abdomen. Patient had a hiatal hernia repair by Dr. Wilson 1 week ago. Was on a clear liquid diet for 5 days and increase to soft foods such as meats and Posta. She does take Nexium daily. Patient states she has been vomiting clear mucus. Pain started after having episodes of diarrhea. Patient in moderate distress on arrival. Denies chest pain, cough, shortness of breath, fever, chills, headache, dizziness Allergies and Home Medications Allergies Coded Allergies: Penicillins (Verified Allergy, Unknown, 10/28/22) Patient Home Medication List Home Medication List Reviewed: Yes Cariprazine Hydrochloride (Vraylar) 1.5 Mg Capsule, 1.5 MG PO DAILY, (Reported) Entered as Reported by: Paula Porter on 10/27/22 1221 Cimetidine (Acid Director Skills (CIMETIDINE)) 200 Mg Tablet, 400 MG PO BID, (Reported) Entered as Reported by: Paula Porter on 10/27/22 1221 Clonidine HCl (Clonidine HCl) 0.1 Mg Tablet, 0.1 MG PO BID, (Reported) Entered as Reported by: Paula Porter on 10/27/22 1221 Diclofenac Sodium (Diclofenac Sodium) 50 Mg Tablet.dr, 50 MG PO DAILY, (Reported) Entered as Reported by: Paula Porter on 10/27/22 1221 Dicyclomine HCl (Dicyclomine HCl) 10 Mg/5 Ml Syrup, 10 MG PO QID Prescribed by: ROSARIO SHARMA on 11/04/22 1609 Esomeprazole Magnesium (Nexium) 40 Mg Cap, 40 MG PO DAILY, (Reported) Entered as Reported by: Paula Porter on 10/27/22 1221 Hydrocodone/Acetaminophen (Hydrocodon-Acetamin 7.5-325/15 ML) 7.5 Mg-325 Mg/15 Ml (15 Ml) Solution, 15 ML PO Q4H Prescribed by: SAMUEL GUEVARA on 10/28/22 1449 Hydrocodone/Acetaminophen (Hydrocodone-Acetamn 7.5-325/15) 7.5 Mg-325 Mg/15 Ml Solution, 15 ML PO Q6H PRN for PAIN-MODERATE (5-7) Prescribed by: ROSARIO SHARMA on 11/04/22 1607 Lamotrigine (Lamotrigine) 100 Mg Tablet, 100 MG PO DAILY, (Reported) Entered as Reported by: Paula Porter on 10/27/22 1221 Multivit with Calcium,Iron,Min (Women's Daily Formula) 27 Mg-0.4 Mg Tablet, 1 EACH PO DAILY, (Reported) Entered as Reported by: Paula Porter on 10/27/22 1221 Sucralfate (Carafate) 1 Gram/10 Ml Oral.susp, 1 GM PO QID Prescribed by: ROSARIO SHARMA on 11/04/22 1609 Review of Systems Review of Systems Constitutional: No chills, No diaphoresis EENTM: No Blurred Vision, No Eye Pain, No Ear Pain, No Mouth Pain Respiratory: Denies Cough, Denies Shortness of Air Cardiovascular: Denies Chest Pain, Denies Edema Gastrointestinal: Abdominal Pain; Denies Diarrhea; Nausea, Vomiting Genitourinary: Denies Burning, Denies Frequency, Denies Flank Pain Musculoskeletal: No back pain, No joint pain Skin: No change in color, No change in hair/nails All Other Systems Reviewed Negative Unless Noted: Yes Past Obcnqow-Ixgrls-Dufciz Hx Patient Social History Tobacco Use?: No Substance use?: Yes Substance type: Marijuana Alcohol Use?: Yes Alcohol Frequency: Rarely Immunizations Up To Date Tetanus Booster (TDap): Less than 5yrs First/Initial COVID19 Vaccinat: none Second COVID19 Vaccination Yann: none Third COVID19 Vaccination Date: none Seasonal Allergies Seasonal Allergies: Yes Past Medical History Surgery/Hospitalization HX: CHOLECYSTECTOMY Surgeries: Yes Cystectomy, Gallbladder Respiratory: No Currently Using CPAP: No Currently Using BIPAP: No Cardiac: No Neurological: No Reproductive Disorders: Yes Female Reproductive Disorders: Ovarian Cyst Genitourinary: Yes UTI-Chronic Gastrointestinal: No Gastroesophageal Reflux, Gall Bladder Disease Musculoskeletal: No Endocrine: No HEENT: No Loss of Vision: Denies Hearing Impairment: Denies Cancer: No Psychosocial: Yes Sleep Difficulties, Anxiety, Bipolar, Depression Integumentary: No Blood Disorders: No Adverse Reaction/Blood Tranf: No Physical Exam Vital Signs Vital Signs - First Documented 11/04/22 14:14 Pulse 85 Resp 20 B/P (MAP) 136/67 (90) O2 Delivery Room Air Capillary Refill : Less Than 3 Seconds Height/Weight/BMI Height: '" Weight: lbs. oz. kg; 30.00 BMI Method: General Appearance: WD/WN, no apparent distress HEENT: PERRL/EOMI, normal ENT inspection, TMs normal, pharynx normal Neck: non-tender, full range of motion, supple Respiratory: chest non-tender, lungs clear, normal breath sounds, no respiratory distress, no accessory muscle use Cardiovascular: regular rate, rhythm, no edema, no gallop, no JVD Gastrointestinal: normal bowel sounds, soft, no organomegaly, no pulsatile mass, tenderness (Epigastric tenderness on palpation) Extremities: normal range of motion, non-tender, normal inspection, no pedal edema Back: normal inspection, no CVA tenderness Pelvic: normal external exam 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, no motor/sensory deficits, alert Skin: normal color, warm/dry Progress/Results/Core Measures Results/Orders Lab Results Laboratory Tests Test 11/04/22 14:25 Range/Units White Blood Count 9.8 4.3-11.0 10^3/uL Red Blood Count 4.33 3.80-5.11 10^6/uL Hemoglobin 13.1 11.5-16.0 g/dL Hematocrit 39 35-52 % Mean Corpuscular Volume 91 80-99 fL Mean Corpuscular Hemoglobin 30 25-34 pg Mean Corpuscular Hemoglobin Concent 33 32-36 g/dL Red Cell Distribution Width 13.2 10.0-14.5 % Platelet Count 311 130-400 10^3/uL Mean Platelet Volume 8.7 L 9.0-12.2 fL Immature Granulocyte % (Auto) 0 % Neutrophils (%) (Auto) 69 42-75 % Lymphocytes (%) (Auto) 23 12-44 % Monocytes (%) (Auto) 6 0-12 % Eosinophils (%) (Auto) 2 0-10 % Basophils (%) (Auto) 0 0-10 % Neutrophils # (Auto) 6.7 1.8-7.8 10^3/uL Lymphocytes # (Auto) 2.2 1.0-4.0 10^3/uL Monocytes # (Auto) 0.6 0.0-1.0 10^3/uL Eosinophils # (Auto) 0.2 0.0-0.3 10^3/uL Basophils # (Auto) 0.0 0.0-0.1 10^3/uL Immature Granulocyte # (Auto) 0.0 0.0-0.1 10^3/uL Sodium Level 141 135-145 MMOL/L Potassium Level 4.1 3.6-5.0 MMOL/L Chloride Level 111 H 98-107 MMOL/L Carbon Dioxide Level 21 21-32 MMOL/L Anion Gap 9 5-14 MMOL/L Blood Urea Nitrogen 11 7-18 MG/DL Creatinine 0.92 0.60-1.30 MG/DL Estimat Glomerular Filtration Rate 86 BUN/Creatinine Ratio 12 Glucose Level 119 H 70-105 MG/DL Calcium Level 9.0 8.5-10.1 MG/DL Corrected Calcium 8.9 8.5-10.1 MG/DL Total Bilirubin 0.2 0.1-1.0 MG/DL Aspartate Amino Transf (AST/SGOT) 75 H 5-34 U/L Alanine Aminotransferase (ALT/SGPT) 213 H 0-55 U/L Alkaline Phosphatase 133 40-136 U/L Total Protein 7.0 6.4-8.2 GM/DL Albumin 4.1 3.2-4.5 GM/DL Lipase 26 8-78 U/L My Orders Orders - DONTAE KAPOOR Cbc With Automated Diff (11/04/22 14:26) Comprehensive Metabolic Panel (11/04/22 14:26) Lipase (11/04/22 14:26) Ondansetron Injection (Zofran Injectio (11/04/22 14:30) Ns Iv 1000 Ml (Sodium Chloride 0.9%) (11/04/22 14:26) Morphine Injection (Morphine Injection (11/04/22 14:30) Ct Abdomen/Pelvis W (11/04/22 14:26) Iohexol Injection (Omnipaque 350 Mg/Ml 1 (11/04/22 14:30) Ns (Ivpb) (Sodium Chloride 0.9% Ivpb Bag (11/04/22 14:30) Dicyclomine Injection (Bentyl Injection) (11/04/22 15:42) Morphine Injection (Morphine Injection (11/04/22 15:45) Medications Given in ED Current Medications Medications Dose Ordered Sig/Sanjay Route Start Time Stop Time Status Last Admin Dose Admin Iohexol 100 ml ONCE ONCE IV 11/04/22 14:30 11/04/22 14:31 DC 11/04/22 14:44 80 ML Morphine Sulfate 4 mg ONCE ONCE IVP 11/04/22 14:30 11/04/22 14:31 DC 11/04/22 14:40 4 MG Morphine Sulfate 4 mg ONCE ONCE IVP 11/04/22 15:45 11/04/22 15:46 DC 11/04/22 16:06 4 MG Ondansetron HCl 4 mg ONCE ONCE IVP 11/04/22 14:30 11/04/22 14:31 DC 11/04/22 14:36 4 MG Sodium Chloride 100 ml ONCE ONCE IV 11/04/22 14:30 11/04/22 14:31 DC 11/04/22 14:44 80 ML Vital Signs/I&O 11/04/22 14:14 Pulse 85 Resp 20 B/P (MAP) 136/67 (90) O2 Delivery Room Air Blood Pressure Mean: 90 Departure Communication (PCP) Reviewed previous ER visits, surgical H&P and consult, testing, lab work. Patient had a hiatal hernia repair by Dr. Wilson 1 week ago. Report epigastric abdominal pain today with vomiting mucus. She had associated diarrhea. No fever, chest pain, cough. History of GERD. She does have epigastric tenderness on palpation. Concern for postop complications such as gastric outlet obstruction, gastroparesis, perforation, abscess. CBC, CMP, lipase CT abdomen pelvis was ordered. CBC was unremarkable. CMP shows slightly elevated liver enzymes AST 75, ALT 213. This is likely reactive postsurgery lipase was unremarkable. She denies of any urinary symptoms. Patient Was given a dose of morphine for pain and a liter of fluid. CT abdomen and pelvis shows the stomach distended with large amount of retained food material concerning for gastroparesis or gastric outlet obstruction. Postop changes noted. Prior cholecystectomy. 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 No evidence of abscess or free air. Discussed patient with Dr. Wilson general surgery. He believes this is secondary to discoordination of the esophagus secondary to recent surgery pair. She was able to drink some water here without vomiting. She did have pain during this time. Likely has some form of gastroparesis. He recommends starting Carafate, hydrocodone elixir, Bentyl. She was given a dose of Bentyl here in the ER. Recommends following up in the office at 10 AM. Recommend clear liquid diet at this time. If any worsening symptoms such as increasing pain, not able to eat and drink with continues vomiting to return back to ED Impression Primary Impression: Abdominal pain Disposition: HOME, SELF-CARE Condition: Stable Departure-Patient Inst. Decision time for Depature: 16:03 Referrals: [facility] [place] ([place]P/Family) Primary Care Physician Patient Instructions: Nausea and Vomiting, Adult Add. Discharge Instructions: Recommend clear liquid diet. Follow-up with Dr. Wilson tomorrow at 10 AM. Recommend pain medication hydrocodone elixir as needed for breakthrough pain. Continue with Carafate and dicyclomine as prescribed All discharge instructions reviewed with patient and/or family. Voiced understanding. Scripts Dicyclomine HCl (Dicyclomine HCl) 10 Mg/5 Ml Syrup 10 MG PO QID, #200 ML Prov: DONTAE KAPOOR 11/04/22 Sucralfate (Carafate) 1 Gram/10 Ml Oral.susp 1 GM PO QID, #200 ML Prov: DONTAE KAPOOR 11/04/22 Hydrocodone/Acetaminophen (Hydrocodone-Acetamn 7.5-325/15) 7.5 Mg-325 Mg/15 Ml Solution 15 ML PO Q6H PRN for PAIN-MODERATE (5-7), #150 ML Prov: DONTAE KAPOOR 11/04/22 DONTAE KAPOOR Nov 04, 2022 14:30
[2022-11-04 14:32] LABS: BASOPHILS % (AUTO) 0 % (0-10); EOSINOPHILS # (AUTO) 0.2 10^3/uL (0.0-0.3); EOSINOPHILS % (AUTO) 2 % (0-10); HEMATOCRIT 39 % (35-52); HEMOGLOBIN 13.1 g/dL (11.5-16.0); LYMPHOCYTES # (AUTO) 2.2 10^3/uL (1.0-4.0); LYMPHOCYTES % (AUTO) 23 % (12-44); MEAN CORPUSCULAR HEMOGLOBIN 30 pg (25-34); MEAN CORPUSCULAR HGB CONC 33 g/dL (32-36); MEAN CORPUSCULAR VOLUME 91 fL (80-99); MEAN PLATELET VOLUME 8.7 fL (9.0-12.2); MONOCYTES # (AUTO) 0.6 10^3/uL (0.0-1.0); MONOCYTES % (AUTO) 6 % (0-12); NEUTROPHILS # (AUTO) 6.7 10^3/uL (1.8-7.8); NEUTROPHILS % (AUTO) 69 % (42-75); PLATELET COUNT 311 10^3/uL (130-400); WHITE BLOOD COUNT 9.8 10^3/uL (4.3-11.0)
[2022-11-04 14:41] LABS: ALBUMIN 4.1 GM/DL (3.2-4.5); POTASSIUM 4.1 MMOL/L (3.6-5.0)
[2022-11-04 14:45] LABS: BILIRUBIN,TOTAL 0.2 MG/DL (0.1-1.0)
[2022-11-04 14:47] LABS: CREATININE SERUM 0.92 MG/DL (0.60-1.30)
--- NOTE | 2022-11-04 14:58 | Diagnostic Imaging Report ---
INDICATION: Abdominal pain, history of hiatal hernia surgery. TECHNIQUE: Multiple contiguous axial images were obtained through the abdomen and pelvis after administration of intravenous contrast. Auto Exposure Controls were utilized during the CT exam to meet ALARA standards for radiation dose reduction. All CT scans use one or more of the following dose optimizing techniques: automated exposure control, MA and/or KvP adjustment based on patient size and exam type or iterative reconstruction. COMPARISON: 04/09/2022. FINDINGS: Visualized portions of the lung bases are clear. There is no pleural fluid collection. There is no free intraperitoneal air. The liver shows no focal lesion. Gallbladder is surgically absent. There is a triangular shaped defect in the medial portion of the spleen superiorly, which was not seen on the prior study and may represent a small splenic infarct. The pancreas and adrenals appear normal. The kidneys, bilaterally, appear normal. There is no retroperitoneal mass or adenopathy. There is no ascites. There is an IUD in place in the uterus. There is no pelvic mass or lymphadenopathy. Stomach is prominently distended with a large amount of retained food material in the stomach. Either gastric outlet obstruction or gastroparesis should be considered., There are scattered fluid-filled loops of small bowel without overt small bowel obstruction. There is prominent stool throughout the colon. IMPRESSION: The stomach is distended with a large amount of retained food material, questioned gastroparesis or gastric outlet obstruction, correlate with clinical findings. There are postop changes status post surgery at the GE junction. Patient has had prior cholecystectomy. There appears to be a small splenic infarct in the medial superior portion of the spleen. There is no evidence of abscess or free air. Dictated by: Dictated on workstation # [id number]
[2022-11-04] MEDS ORDERED: DICYCLOMINE 10 MG/ML (BENTYL) 2 ML AMP IM STA (15:42)
[2022-11-04] MEDS ORDERED: DICY20TA PO (16:06)
[2022-11-04] MEDS ORDERED: HYDR118S10 PO (16:06)
[2022-11-04] MEDS ORDERED: SUCR1TAB36 PO (16:06)
[2022-11-04] MEDS ORDERED: SUCR1ORA5 PO (16:09)
[2022-11-04] MEDS ORDERED: DICY10SY PO (16:09)
[2022-11-04 16:35] VITALS: BP 109/66
== END 2022-11-04 16:35 | disposition home or self-care (01) ==
LOC: EDUNIT# 14:07 → ER 14:09
DX: R10.13 Epigastric pain (principal); R19.7 Diarrhea, unspecified; Z98.890 Other specified postprocedural states; Z87.19 Personal history of other diseases of the digestive system; Z28.310 Unvaccinated for COVID-19
CPT/HCPCS: 36415; 74177; 80053; 83690; 85025

== ENCOUNTER 2022-11-10 00:54 | Inpatient (IN) | payer MEDICAID ==
[~2022-11-10] VITALS: Ht 160 cm; Wt 76.6 kg
[~2022-11-10 00:54] MED LIST changes: +DICY10SY PO; +DICY20TA PO; +HYDR118S10 PO; +SUCR1ORA5 PO
[2022-11-10] MEDS ORDERED: ONDANSETRON 4 MG/2 ML (SDV) Z0FRAN IVP ONE ×2 (01:00→03:45)
[2022-11-10] MEDS ORDERED: LACTATED RINGERS 1,000 ML IV ONE ×2 (01:00→02:30)
[2022-11-10] MEDS ORDERED: fentaNYL INJ 100 MCG/2 ML AMP IVP STA ×2 (01:04→03:36)
[2022-11-10 01:06] LABS: BASOPHILS # (AUTO) 0.1 10^3/uL (0.0-0.1); BASOPHILS % (AUTO) 0 % (0-10); EOSINOPHILS # (AUTO) 0.1 10^3/uL (0.0-0.3); EOSINOPHILS % (AUTO) 0 % (0-10); HEMATOCRIT 39 % (35-52); LYMPHOCYTES # (AUTO) 1.8 10^3/uL (1.0-4.0); LYMPHOCYTES % (AUTO) 14 % (12-44); MEAN CORPUSCULAR HEMOGLOBIN 30 pg (25-34); MEAN CORPUSCULAR HGB CONC 34 g/dL (32-36); MEAN CORPUSCULAR VOLUME 89 fL (80-99); MEAN PLATELET VOLUME 8.8 fL (9.0-12.2); MONOCYTES # (AUTO) 0.3 10^3/uL (0.0-1.0); MONOCYTES % (AUTO) 2 % (0-12); NEUTROPHILS % (AUTO) 83 % (42-75); PLATELET COUNT 359 10^3/uL (130-400); WHITE BLOOD COUNT 13.2 10^3/uL (4.3-11.0)
[2022-11-10] MEDS ORDERED: PANTOPRAZOLE 40 MG (PROTONIX) VIAL IV ONE (01:15)
[2022-11-10 01:16] LABS: ALBUMIN 4.4 GM/DL (3.2-4.5); CHLORIDE 109 MMOL/L (98-107); POTASSIUM 3.7 MMOL/L (3.6-5.0); SODIUM 140 MMOL/L (135-145)
[2022-11-10 01:17] LABS: AMYLASE 47 U/L (25-125); CALCIUM 9.6 MG/DL (8.5-10.1)
[2022-11-10 01:18] LABS: GLUCOSE 168 MG/DL (70-105); TOTAL PROTEIN 7.1 GM/DL (6.4-8.2)
[2022-11-10 01:19] LABS: CARBON DIOXIDE 19 MMOL/L (21-32)
[2022-11-10 01:20] LABS: BILIRUBIN,TOTAL 0.2 MG/DL (0.1-1.0)
[2022-11-10 01:22] LABS: ALKALINE PHOSPHATASE 134 U/L (40-136); CREATININE SERUM 0.87 MG/DL (0.60-1.30); GFR ESTIMATED 92
[2022-11-10 01:23] LABS: BUN/CREATININE RATIO 11
[2022-11-10 01:25] LABS: ALANINE AMINOTRANSFERASE 99 U/L (0-55); MAGNESIUM 1.8 MG/DL (1.6-2.4)
[2022-11-10 01:26] LABS: LIPASE 33 U/L (8-78)
[2022-11-10] MEDS ORDERED: IOHEXOL 350 MG/ML 100 ML (OMNIPAQUE 350) VIAL IV ONE (02:00)
[2022-11-10] MEDS ORDERED: NS 100 ML (IVPB) BAG IV ONE (02:00)
[2022-11-10] MEDS ORDERED: CATHETER FLUSH 10 ML SYR IV PRN (02:00)
[2022-11-10] MEDS ORDERED: PROMETHAZINE INJ 25 MG/ML (PHENERGAN) AMP IVP ONE ×2 (02:15→03:45)
[2022-11-10] MEDS ORDERED: diphenhydrAMINE 50 MG/ML INJ (BENADRYL) IVP ONE (02:15)
[2022-11-10 02:49] LABS: BILIRUBIN,URINE NEGATIVE (NEGATIVE); CLARITY,URINE CLEAR; COLOR,URINE YELLOW; GLUCOSE, URINE (UA) NEGATIVE (NEGATIVE); KETONES,URINE NEGATIVE (NEGATIVE); LEUKOCYTE ESTERASE ,URINE NEGATIVE (NEGATIVE); NITRITE,URINE NEGATIVE (NEGATIVE); PH,URINE 7.5 (5-9); PROTEIN,URINE TRACE (NEGATIVE)
[2022-11-10 02:55] LABS: BACTERIA,URINE NEGATIVE /HPF
[2022-11-10 03:04] LABS: AMPHETAMINE SCREEN, URINE NEGATIVE (NEGATIVE); BARBITURATE SCREEN URINE NEGATIVE (NEGATIVE); BENZODIAZEPINES SCREEN URINE NEGATIVE (NEGATIVE); CANNABINOID SCREEN, URINE POSITIVE (NEGATIVE); COCAINE SCREEN URINE NEGATIVE (NEGATIVE); METHADONE STAT NEGATIVE (NEGATIVE); OPIATE SCREEN URINE POSITIVE (NEGATIVE); OXYCODONE STAT NEGATIVE (NEGATIVE); PROPOXYPHENE STAT NEGATIVE (NEGATIVE); TRICYCLIC ANTIDEPRESSANTS SCRE NEGATIVE (NEGATIVE)
--- NOTE | 2022-11-10 03:52 | ED GI ---
General Chief Complaint: Abdominal/GI Problems Stated Complaint: VOMITING Nursing Triage Note: TO ED VIA [facility] TO ROOM 7 WITH C/O ABD PAIN AND N/V. HIATAL HERNIA REPAIR 10/28 AND WAS SEEN IN ER 11/04 WITH ABD AND N/V ALSO. 20G IV TO LEFT AC STARTED BY EMS EN ROUTE. Source of Information: Patient, Old Records History of Present Illness Date Seen by Provider: Nov 10, 2022 Time Seen by Provider: 00:57 Initial Comments PT ARRIVES VIA EMS FROM HOME PT HAD A HIATAL HERNIA REPAIR BY DR. GOMES ON 10/28/22 SHE WAS SEEN HERE IN ER 11/04/22 FOR ABDOMINAL PAIN AND NAUSEA. SHE STATES SHE HAD BEEN ON CLEAR LIQUIDS AND THEN LAST WEEK SHE STARTED ON SOFT FOODS AND MEATS SHE ATE AROUND 1600 TODAY--MASHED POTATOES AND "HAMBURGER GRAVY" AROUND 1730, SHE BEGAN HAVING UPPER ABDOMINAL PAIN--WORST IN RUQ, ALONG WITH SEVERE NAUSEA AND DRY HEAVES--ONLY GETTING UP SALIVA. SHE HAD A BM YESTERDAY NO URINARY SYMPTOMS AND VOIDING A NORMAL AMOUNT NO FEVER SHE TRIED TAKING ZOFRAN AND LIQUID HYDROCODONE BUT CAN'T KEEP THEM DOWN SHE HAS A FOLLOW UP APPOINTMENT WITH DR. GOMES NEXT TUESDAY. SHE HAS NOT FOLLOWED UP WITH HIM SINCE SURGERY. PT HAS HAD A LAP CHOLECYSTECTOMY 03/2022 SHE HAS IUD IN PLACE, WITH LMP 2018 WHEN IT WAS PLACED. SHE SMOKES 1 PPD, AND VAPES NICOTINE, SHE ALSO SMOKES MARIJUANA DAILY. RARE ETOH USE, AND NONE SINCE SURGERY. PCP: [facility] [place] SURGEON: DR. GOMES Allergies and Home Medications Allergies Coded Allergies: Penicillins (Verified Allergy, Unknown, 10/28/22) Patient Home Medication List Home Medication List Reviewed: Yes Cariprazine Hydrochloride (Vraylar) 1.5 Mg Capsule, 1.5 MG PO DAILY, (Reported) Entered as Reported by: Paula Porter on 10/27/22 1221 Cimetidine (Acid Medical/Surgery Registered Nurse (CIMETIDINE)) 200 Mg Tablet, 400 MG PO BID, (Reported) Entered as Reported by: Paula Porter on 10/27/22 1221 Clonidine HCl (Clonidine HCl) 0.1 Mg Tablet, 0.1 MG PO BID, (Reported) Entered as Reported by: Paula Porter on 10/27/22 1221 Diclofenac Sodium (Diclofenac Sodium) 50 Mg Tablet.dr, 50 MG PO DAILY, (Reported) Entered as Reported by: Paula Porter on 10/27/22 1221 Dicyclomine HCl (Dicyclomine HCl) 10 Mg/5 Ml Syrup, 10 MG PO QID Prescribed by: ROSARIO SHARMA on 11/04/22 1609 Esomeprazole Magnesium (Nexium) 40 Mg Cap, 40 MG PO DAILY, (Reported) Entered as Reported by: Paula Porter on 10/27/22 1221 Hydrocodone/Acetaminophen (Hydrocodon-Acetamin 7.5-325/15 ML) 7.5 Mg-325 Mg/15 Ml (15 Ml) Solution, 15 ML PO Q4H Prescribed by: SAMUEL GUEVARA on 10/28/22 1449 Hydrocodone/Acetaminophen (Hydrocodone-Acetamn 7.5-325/15) 7.5 Mg-325 Mg/15 Ml Solution, 15 ML PO Q6H PRN for PAIN-MODERATE (5-7) Prescribed by: ROSARIO SHARMA on 11/04/22 1607 Lamotrigine (Lamotrigine) 100 Mg Tablet, 100 MG PO DAILY, (Reported) Entered as Reported by: Paula Porter on 10/27/22 1221 Multivit with Calcium,Iron,Min (Women's Daily Formula) 27 Mg-0.4 Mg Tablet, 1 EACH PO DAILY, (Reported) Entered as Reported by: Paula Porter on 10/27/22 1221 Sucralfate (Carafate) 1 Gram/10 Ml Oral.susp, 1 GM PO QID Prescribed by: ROSARIO SHARMA on 11/04/22 1609 Review of Systems Review of Systems Constitutional: no symptoms reported EENTM: No Symptoms Reported Respiratory: No Symptoms Reported Cardiovascular: No Symptoms Reported Gastrointestinal: See HPI, Abdominal Pain; Denies Constipated, Denies Diarrhea; Nausea, Vomiting (DRY HEAVES) Genitourinary: No Symptoms Reported Musculoskeletal: no symptoms reported Skin: no symptoms reported Psychiatric/Neurological: No Symptoms Reported Endocrine: No Symptoms Reported Hematologic/Lymphatic: No Symptoms Reported Past Ggojhgj-Ygvlqn-Aaunij Hx Patient Social History Tobacco Use?: Yes Tobacco type used: Cigarettes Smoking Status: Current Everyday Smoker Use of E-Cig and/or Vaping dev: Yes E-Cig or Vaping type used: Nicotine Use of E-Cig and/or Vaping Jeffrey: Current Everyday User Substance use?: Yes Substance type: Marijuana Substance frequency: Daily Alcohol Use?: Yes Alcohol Frequency: Once in a while Immunizations Up To Date Tetanus Booster (TDap): Less than 5yrs Influenza Vaccine Up-to-Date: No; Not Current First/Initial COVID19 Vaccinat: none Second COVID19 Vaccination Yann: none Third COVID19 Vaccination Date: none Seasonal Allergies Seasonal Allergies: Yes Past Medical History Surgery/Hospitalization HX: CHOLECYSTECTOMY Surgeries: Yes Abdominal, Cystectomy, Gallbladder Respiratory: No Currently Using CPAP: No Currently Using BIPAP: No Cardiac: No Neurological: No Reproductive Disorders: Yes 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 PYLORI) Gastroesophageal Reflux, Esophagitis, Hiatal Hernia, Gall Bladder Disease Musculoskeletal: No Endocrine: No HEENT: No Loss of Vision: Denies Hearing Impairment: Denies Cancer: No Psychosocial: Yes Sleep Difficulties, Anxiety, Bipolar, Depression Integumentary: No Blood Disorders: No Adverse Reaction/Blood Tranf: No Family Medical History SOCIAL HISTORY: -SMOKES 1 PPD OF CIGARETTES -VAPES NICOTINE DAILY -ETOH--OCCASIONAL USE -DRUGS--SMOKES MARIJUANA DAILY PAST SURGICAL HISTORY: -OVARIAN CYST REMOVAL X 2 IN 2010 AND 2011 -LAP CHOLECYSTECTOMY 03/[address] GOMES -EGD 03/[address] GOMES -HIATAL HERNIA REPAIR 10/28/[address] GOMES Physical Exam Vital Signs Vital Signs - First Documented 11/10/22 00:55 Temp 36.6 Pulse 68 Resp 20 B/P (MAP) 127/88 (101) Pulse Ox 99 O2 Delivery Room Air Capillary Refill : Less Than 3 Seconds Height/Weight/BMI Height: '" Weight: lbs. oz. kg; 30.00 BMI Method: General Appearance: other (SITTTING MALAGASY-STYLE, HARSH FORCED RETCHING--SPITTING UP SALIVA. HAIR IS DYED RED/PINK) HEENT: PERRL/EOMI; No scleral icterus (R), No scleral icterus (L), No pale conjunctivae (R), No pale conjunctivae (L) Neck: normal inspection Respiratory: normal breath sounds, no respiratory distress, no accessory muscle use Cardiovascular: regular rate, rhythm, no murmur Gastrointestinal: soft, abnormal bowel sounds (DECREASED); No distended, No guarding, No rebound; tenderness (DIFFUSE UPPER ABDOMINAL TENDERNESS BUT IS MOST TENDER IN RUQ AND EPIGASTRIC AREA . INCISION SITES ALL ARE HEALING WELL WITH NO SIGNS OF INFECTION, THERE IS OLD BRUISING TO ABDOMEN BUT NO FRESH BRUISING. NO BLEEDING FROM WOUNDS. 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, no motor/sensory deficits, alert, oriented x 3 Skin: normal color, warm/dry, tattoos/piercings Progress/Results/Core Measures Results/Orders Lab Results Laboratory Tests Test 11/10/22 01:00 11/10/22 02:40 Range/Units White Blood Count 13.2 H 4.3-11.0 10^3/uL Red Blood Count 4.33 3.80-5.11 10^6/uL Hemoglobin 13.0 11.5-16.0 g/dL Hematocrit 39 35-52 % Mean Corpuscular Volume 89 80-99 fL Mean Corpuscular Hemoglobin 30 25-34 pg Mean Corpuscular Hemoglobin Concent 34 32-36 g/dL Red Cell Distribution Width 13.1 10.0-14.5 % Platelet Count 359 130-400 10^3/uL Mean Platelet Volume 8.8 L 9.0-12.2 fL Immature Granulocyte % (Auto) 0 % Neutrophils (%) (Auto) 83 H 42-75 % Lymphocytes (%) (Auto) 14 12-44 % Monocytes (%) (Auto) 2 0-12 % Eosinophils (%) (Auto) 0 0-10 % Basophils (%) (Auto) 0 0-10 % Neutrophils # (Auto) 11.0 H 1.8-7.8 10^3/uL Lymphocytes # (Auto) 1.8 1.0-4.0 10^3/uL Monocytes # (Auto) 0.3 0.0-1.0 10^3/uL Eosinophils # (Auto) 0.1 0.0-0.3 10^3/uL Basophils # (Auto) 0.1 0.0-0.1 10^3/uL Immature Granulocyte # (Auto) 0.1 0.0-0.1 10^3/uL Sodium Level 140 135-145 MMOL/L Potassium Level 3.7 3.6-5.0 MMOL/L Chloride Level 109 H 98-107 MMOL/L Carbon Dioxide Level 19 L 21-32 MMOL/L Anion Gap 12 5-14 MMOL/L Blood Urea Nitrogen 10 7-18 MG/DL Creatinine 0.87 0.60-1.30 MG/DL Estimat Glomerular Filtration Rate 92 BUN/Creatinine Ratio 11 Glucose Level 168 H 70-105 MG/DL Calcium Level 9.6 8.5-10.1 MG/DL Corrected Calcium 9.3 8.5-10.1 MG/DL Magnesium Level 1.8 1.6-2.4 MG/DL Total Bilirubin 0.2 0.1-1.0 MG/DL Aspartate Amino Transf (AST/SGOT) 22 5-34 U/L Alanine Aminotransferase (ALT/SGPT) 99 H 0-55 U/L Alkaline Phosphatase 134 40-136 U/L Total Protein 7.1 6.4-8.2 GM/DL Albumin 4.4 3.2-4.5 GM/DL Amylase Level 47 25-125 U/L Lipase 33 8-78 U/L Serum Test, Qualitative NEGATIVE NEGATIVE Serum Alcohol < 10 <10 MG/DL Urine Color YELLOW Urine Clarity CLEAR Urine pH 7.5 5-9 Urine Specific [place] <=1.005 1.016-1.022 Urine Protein TRACE H NEGATIVE Urine Glucose (UA) NEGATIVE NEGATIVE Urine Ketones NEGATIVE NEGATIVE Urine Nitrite NEGATIVE NEGATIVE Urine Bilirubin NEGATIVE NEGATIVE Urine Urobilinogen 0.2 < = 1.0 MG/DL Urine Leukocyte Esterase NEGATIVE NEGATIVE Urine RBC (Auto) NEGATIVE NEGATIVE Urine RBC NONE /HPF Urine WBC NONE /HPF Urine Crystals NONE /LPF Urine Bacteria NEGATIVE /HPF Urine Casts NONE /LPF Urine Mucus NEGATIVE /LPF Urine Culture Indicated NO Urine Opiates Screen POSITIVE H NEGATIVE Urine Oxycodone Screen NEGATIVE NEGATIVE Urine Methadone Screen NEGATIVE NEGATIVE Urine Propoxyphene Screen NEGATIVE NEGATIVE Urine Barbiturates Screen NEGATIVE NEGATIVE Ur Tricyclic Antidepressants Screen NEGATIVE NEGATIVE Urine Phencyclidine Screen NEGATIVE NEGATIVE Urine Amphetamines Screen NEGATIVE NEGATIVE Urine Methamphetamines Screen NEGATIVE NEGATIVE Urine Benzodiazepines Screen NEGATIVE NEGATIVE Urine Cocaine Screen NEGATIVE NEGATIVE Urine Cannabinoids Screen POSITIVE H NEGATIVE My Orders Orders - ALISIA HERNANDEZ DO Ed Iv/Invasive Line Start (11/10/22 00:57) Monitor-Rhythm Ecg Trace Only (11/10/22 00:57) Alcohol (3/15/23 00:57) Amylase (11/10/22 00:57) Cbc With Automated Diff (11/10/22 00:57) Comprehensive Metabolic Panel (11/10/22 00:57) Drug Screen Stat (Urine) (11/10/22 00:57) Hcg,Qualitative Serum (11/10/22 00:57) Lipase (11/10/22 00:57) Magnesium (11/10/22 00:57) Ua Culture If Indicated (11/10/22 00:57) Ed Iv/Invasive Line Start (11/10/22 00:57) Lactated Ringers (Lr 1000 Ml Iv Solution (11/10/22 01:00) Ondansetron Injection (Zofran Injectio (11/10/22 01:00) Fentanyl Inj (Sublimaze Injection) (11/10/22 01:04) Pantoprazole Injection (Protonix Injecti (11/10/22 01:15) Ct Abdomen/Pelvis W (11/10/22 01:29) Chest 1 View, Ap/Pa Only (11/10/22 01:29) Iohexol Injection (Omnipaque 350 Mg/Ml 1 (11/10/22 02:00) Sodium Chloride Flush (Catheter Flush Sy (11/10/22 02:00) Ns (Ivpb) (Sodium Chloride 0.9% Ivpb Bag (11/10/22 02:00) Promethazine Injection (Phenergan Injec (11/10/22 02:15) Diphenhydramine Injection (Benadryl Inje (11/10/22 02:15) Ed Iv/Invasive Line Start (11/10/22 02:19) Lactated Ringers (Lr 1000 Ml Iv Solution (11/10/22 02:30) Medications Given in ED Current Medications Medications Dose Ordered Sig/Sanjay Route Start Time Stop Time Status Last Admin Dose Admin Diphenhydramine HCl 25 mg ONCE ONCE IVP 11/10/22 02:15 11/10/22 02:16 DC 11/10/22 02:20 25 MG Iohexol 100 ml ONCE ONCE IV 11/10/22 02:00 11/10/22 02:02 DC 11/10/22 02:05 80 ML Lactated Ringer's 1,000 ml @ 0 mls/hr Q0M ONCE IV 11/10/22 01:00 11/10/22 01:02 DC 11/10/22 01:11 999 MLS/HR Lactated Ringer's 1,000 ml @ 0 mls/hr Q0M ONCE IV 11/10/22 02:30 11/10/22 02:31 DC 11/10/22 02:46 999 MLS/HR Ondansetron HCl 4 mg ONCE ONCE IVP 11/10/22 01:00 11/10/22 01:02 DC 11/10/22 01:11 4 MG Pantoprazole 40 mg ONCE ONCE IV 11/10/22 01:15 11/10/22 01:16 DC 11/10/22 01:11 40 MG Promethazine HCl 25 mg ONCE ONCE IVP 11/10/22 02:15 11/10/22 02:16 DC 11/10/22 02:20 25 MG Sodium Chloride 10 ml NEEDED PRN IV 11/10/22 02:00 11/10/22 05:17 DC 11/10/22 02:06 10 ML Sodium Chloride 100 ml ONCE ONCE IV 11/10/22 02:00 11/10/22 02:02 DC 11/10/22 02:05 80 ML Vital Signs/I&O 11/10/22 00:55 Temp 36.6 Pulse 68 Resp 20 B/P (MAP) 127/88 (101) Pulse Ox 99 O2 Delivery Room Air Blood Pressure Mean: 101 Progress Progress Note : Progress Note GIVEN: -IV FLUIDS -ZOFRAN -PROTONIX -PHENERGAN -BENADRYL -FENTANYL PT CONTINUES TO HAVE PAIN AND NAUSEA AND RETCHING, BUT IS A LITTLE IMPROVED FROM ARRIVAL VITALS STABLE NO DETERIORATION IN PT'S CONDITION DURING ER STAY REVIEWED PRIOR RECORDS INCLUDING ER VISITS, ADMITS, H&P'S, TESTS/PROCEDURES, DISCHARGE SUMMARIES DISCUSSED TEST RESULTS, NEED FOR ADMIT AND PT IS AGREEABLE TO PLAN. Diagnostic Imaging Comments CXR--NO ACUTE PROCESS, PENDING RADIOLOGIST REVIEW CT ABDOMEN/PELVIS--PER [facility] VIA FAX AT [address] 11/04/22: -FLUID AND GAS DISTENDED SMALL BOWEL LOOPS THROUGHOUT THE ABDOMEN AND PELVIS. NO ASYMMETRIC DILATION OR ASYMMETRIC MUCOSAL THICKENING. -FINDINGS SUGGEST ENTERITIS. -NO PNEUMOPERITONEUM -SIMILAR POST SURGICAL CHANGES AT GASTRO-ESOPHAGEAL JUNCTION, WITH A CONFIGURATION OF THE STOMACH SUGGESTING KAMI FUNDOPLICATION. -SIMILAR SLIGHTLY LESS PROMINENT RETAINED MATERIAL IN THE STOMACH -NO GASTRIC MUCOSAL THICKENING. -NO RETROGRADE REFLUX INTO THE DISTAL THORACIC ESOPHAGUS Reviewed: Reviewed by Me Departure Communication (Admissions) 223--SPOKE WITH DR. RODRIGUEZ, RECONCILIATION CLERK FOR [facility]. [facility] IS PENDING AT THIS TIME, BUT WILL SEE PT IN CONSULT. 331--SPOKE WITH DR. BLAKE, SURGEON RECONCILIATION CLERK. ACCEPTS PT FOR ADMIT FOR DR. GOMES--WILL NOTIFY HIM AT 0700 Impression Primary Impression: INTRACTABLE POST OP PAIN Additional Impressions: INTRACTABLE POST OP NAUSEA AND DRY HEAVES S/P HIATAL HERNIA REPAIR Disposition: ADMITTED INPATIENT Condition: Stable Admissions Decision to Admit Reason: Admit from ER (General) Decision to Admit/Date: Nov 10, 2022 Time/Decision to Admit Time: 03:30 Departure-Patient Inst. Referrals: [facility] [place] (PCP/Family) Primary Care Physician ALISIA HERNANDEZ DO Nov 10, 2022 03:52
[2022-11-10 04:30] VITALS: BP 167/81
[2022-11-10] MEDS ORDERED: diphenhydrAMINE 50 MG/ML INJ (BENADRYL) IV PRN (05:30)
[2022-11-10] MEDS ORDERED: fentaNYL INJ 100 MCG/2 ML AMP IV PRN (05:30)
[2022-11-10] MEDS ORDERED: ONDANSETRON 4 MG/2 ML (SDV) Z0FRAN IV PRN (05:30)
[2022-11-10] MEDS: D5 1/2 NS W/KCL 20 MEQ/L 1,000 ML IV SCH ×3 (05:35→17:54)
--- NOTE | 2022-11-10 06:41 | Diagnostic Imaging Report ---
EXAMINATION: CT abdomen and pelvis with intravenous contrast. TECHNIQUE: Multiple contiguous axial images were obtained through the abdomen and pelvis after the uneventful administration of intravenous contrast. All CT scans use one or more of the following dose optimizing techniques: automated exposure control, MA and/or KvP adjustment based on patient size and exam type or iterative reconstruction. HISTORY: Abdominal pain. Nausea and vomiting. COMPARISON: 11/04/2022. FINDINGS: The heart is unremarkable. The included lung bases are clear. The liver, spleen, pancreas, adrenal glands, and kidneys have a normal appearance. The gallbladder surgically absent. The portal vein is patent. There is no pathologically enlarged mesenteric or retroperitoneal adenopathy. Postsurgical changes are seen in the GE junction. Ingested contents are seen within a mildly distended stomach. The bowel loops are nondilated. The appendix is visualized in the right lower quadrant and has a normal appearance. There is no free air. No acute osseous abnormalities. Ureters and bladder are grossly normal. Trace free fluid is seen in the pelvis, likely physiologic. An IUD is in place. There is no free air, loculated collection, or adenopathy in the pelvis. IMPRESSION: 1. Mildly distended stomach with ingested contents, similar to the prior exam. Gastroparesis or gastritis can have this appearance. Recommend continued follow-up. 2. Trace physiologic free fluid in the pelvis. Dictated by: Dictated on workstation # [id number]
[2022-11-10 07:45] VITALS: BP 119/58
[2022-11-10] MEDS: PROMETHAZINE INJ 25 MG/ML (PHENERGAN) AMP IVP PRN ×2 (07:46→12:06)
--- NOTE | 2022-11-10 07:55 | Diagnostic Imaging Report ---
EXAMINATION: Chest 1 view HISTORY: Nausea and vomiting. COMPARISON: None available. FINDINGS: The lung volumes are normal. No focal consolidation is seen. No large pleural effusion or pneumothorax is seen. The cardiomediastinal silhouette is normal in size and contour. No acute osseous abnormality is seen. IMPRESSION: 1. No acute pleuroparenchymal process. Dictated by: Dictated on workstation # [id number]
[2022-11-10] MEDS ORDERED: PANTOPRAZOLE 40 MG (PROTONIX) VIAL IV SCH (09:00)
[2022-11-10] MEDS ORDERED: METOCLOPRAMIDE INJ 10 MG/2 ML (REGLAN) IVP PRN (10:30)
[2022-11-10] MEDS ORDERED: ONDANSETRON 4 MG/2 ML (SDV) Z0FRAN IVP PRN (12:00)
[2022-11-10 12:01] VITALS: BP 124/65
--- NOTE | 2022-11-10 13:49 | Consultation ---
HPI History of Present Illness: 32 yo F that had a hiatal hernia repair on 10/28/22 and now having intractable post op pain. States that she has been having pain since surgery but it got worse over the last 48 hrs and now she is having severe nausea which is new. She has been on CLD until 2 days ago which she tried to have mashed potatoes with gravy. States that her pain medications have not improved the pain. Source: patient Exam Limitations: no limitations Date seen by provider: Nov 10, 2022 Time Seen by Provider: 10:00 Attending Physician [facility] PCP Admitting Physician: Lorin Gomes MD Attending Physician: Lorin Gomes MD Consult Date of Admission Nov 10, 2022 at 03:30 Home Medications Home Medications Reviewed patient Home Medication Reconciliation performed by pharmacy medication reconciliations lighting engineering technician and/or nursing. Patients Allergies have been reviewed. Allergies Coded Allergies: Penicillins (Verified Allergy, Unknown, 10/28/22) EHV-[id number]-Gqonep Hx Patient Social History Drug of Choice: MARIJUANA Smoking Status: Current Everyday Smoker 2nd Hand Smoke Exposure: Yes Recent Hopitalizations: Yes (MARCH 2022) Alcohol Use?: Yes Substance type: Marijuana Tobacco type used: Cigarettes Have you traveled recently?: No Immunizations Up To Date Tetanus Booster (TDap): Less than 5yrs Influenza Vaccine Up-to-Date: No; Not Current First/Initial COVID19 Vaccinat: none Second COVID19 Vaccination Yann: none Third COVID19 Vaccination Date: none Past Medical History S/p Hiatal hernia repair 10/28/22 tobacco abuse GERD Family Medical History Other Significan Family Hx: SOCIAL HISTORY: -SMOKES 1 PPD OF CIGARETTES -VAPES NICOTINE DAILY -ETOH--OCCASIONAL USE -DRUGS--SMOKES MARIJUANA DAILY PAST SURGICAL HISTORY: -OVARIAN CYST REMOVAL X 2 IN 2010 AND 2012 -LAP CHOLECYSTECTOMY 03/[address] GOMES -EGD 03/[address] GOMES -HIATAL HERNIA REPAIR 10/28/[address] GOMES Review of Systems ([facility]) Constitutional: no symptoms reported; No chills, No fever, No weakness EENTM: no symptoms reported; No mouth pain, No nose congestion, No nose pain Respiratory: no symptoms reported; No cough, No dyspnea on exertion, No short of breath Cardiovascular: no symptoms reported; No chest pain, No edema, No palpitations Gastrointestinal: abdominal pain, loss of appetite, nausea; No vomiting Genitourinary: no symptoms reported; No dysuria, No frequency, No hematuria : No Musculoskeletal: no symptoms reported Skin: no symptoms reported, other (appropriate healing surgical incisions) Psychiatric/Neurological: No Symptoms Reported Reviewed Test Results Reviewed Test Results Lab Laboratory Tests Test 11/10/22 01:00 11/10/22 02:40 Range/Units White Blood Count 13.2 H 4.3-11.0 10^3/uL Red Blood Count 4.33 3.80-5.11 10^6/uL Hemoglobin 13.0 11.5-16.0 g/dL Hematocrit 39 35-52 % Mean Corpuscular Volume 89 80-99 fL Mean Corpuscular Hemoglobin 30 25-34 pg Mean Corpuscular Hemoglobin Concent 34 32-36 g/dL Red Cell Distribution Width 13.1 10.0-14.5 % Platelet Count 359 130-400 10^3/uL Mean Platelet Volume 8.8 L 9.0-12.2 fL Immature Granulocyte % (Auto) 0 % Neutrophils (%) (Auto) 83 H 42-75 % Lymphocytes (%) (Auto) 14 12-44 % Monocytes (%) (Auto) 2 0-12 % Eosinophils (%) (Auto) 0 0-10 % Basophils (%) (Auto) 0 0-10 % Neutrophils # (Auto) 11.0 H 1.8-7.8 10^3/uL Lymphocytes # (Auto) 1.8 1.0-4.0 10^3/uL Monocytes # (Auto) 0.3 0.0-1.0 10^3/uL Eosinophils # (Auto) 0.1 0.0-0.3 10^3/uL Basophils # (Auto) 0.1 0.0-0.1 10^3/uL Immature Granulocyte # (Auto) 0.1 0.0-0.1 10^3/uL Sodium Level 140 135-145 MMOL/L Potassium Level 3.7 3.6-5.0 MMOL/L Chloride Level 109 H 98-107 MMOL/L Carbon Dioxide Level 19 L 21-32 MMOL/L Anion Gap 12 5-14 MMOL/L Blood Urea Nitrogen 10 7-18 MG/DL Creatinine 0.87 0.60-1.30 MG/DL Estimat Glomerular Filtration Rate 92 BUN/Creatinine Ratio 11 Glucose Level 168 H 70-105 MG/DL Calcium Level 9.6 8.5-10.1 MG/DL Corrected Calcium 9.3 8.5-10.1 MG/DL Magnesium Level 1.8 1.6-2.4 MG/DL Total Bilirubin 0.2 0.1-1.0 MG/DL Aspartate Amino Transf (AST/SGOT) 22 5-34 U/L Alanine Aminotransferase (ALT/SGPT) 99 H 0-55 U/L Alkaline Phosphatase 134 40-136 U/L Total Protein 7.1 6.4-8.2 GM/DL Albumin 4.4 3.2-4.5 GM/DL Amylase Level 47 25-125 U/L Lipase 33 8-78 U/L Serum Test, Qualitative NEGATIVE NEGATIVE Serum Alcohol < 10 <10 MG/DL Urine Color YELLOW Urine Clarity CLEAR Urine pH 7.5 5-9 Urine Specific [place] <=1.005 1.016-1.022 Urine Protein TRACE H NEGATIVE Urine Glucose (UA) NEGATIVE NEGATIVE Urine Ketones NEGATIVE NEGATIVE Urine Nitrite NEGATIVE NEGATIVE Urine Bilirubin NEGATIVE NEGATIVE Urine Urobilinogen 0.2 < = 1.0 MG/DL Urine Leukocyte Esterase NEGATIVE NEGATIVE Urine RBC (Auto) NEGATIVE NEGATIVE Urine RBC NONE /HPF Urine WBC NONE /HPF Urine Crystals NONE /LPF Urine Bacteria NEGATIVE /HPF Urine Casts NONE /LPF Urine Mucus NEGATIVE /LPF Urine Culture Indicated NO Urine Opiates Screen POSITIVE H NEGATIVE Urine Oxycodone Screen NEGATIVE NEGATIVE Urine Methadone Screen NEGATIVE NEGATIVE Urine Propoxyphene Screen NEGATIVE NEGATIVE Urine Barbiturates Screen NEGATIVE NEGATIVE Ur Tricyclic Antidepressants Screen NEGATIVE NEGATIVE Urine Phencyclidine Screen NEGATIVE NEGATIVE Urine Amphetamines Screen NEGATIVE NEGATIVE Urine Methamphetamines Screen NEGATIVE NEGATIVE Urine Benzodiazepines Screen NEGATIVE NEGATIVE Urine Cocaine Screen NEGATIVE NEGATIVE Urine Cannabinoids Screen POSITIVE H NEGATIVE Physical Exam-([facility]) Physical Exam Vital Signs VS - Last 72 Hours, by Label 11/10/22 11/10/22 11/10/22 11/10/22 00:55 04:13 04:30 04:40 Temp 36.6 36.6 36.4 Pulse 68 73 61 Resp 20 16 18 B/P (MAP) 127/88 (101) 138/78 167/81 (109) Pulse Ox 99 99 98 O2 Delivery Room Air Room Air Room Air Room Air 11/10/22 11/10/22 11/10/2223 05:20 07:15 07:45 07:49 Temp 37.3 Pulse 69 67 72 Resp 16 B/P (MAP) 119/58 (78) Pulse Ox 99 99 O2 Delivery Room Air Room Air 11/10/22 11/10/22 12:01 12:21 Temp 37.5 Pulse 66 61 Resp 16 B/P (MAP) 124/65 (84) Pulse Ox 99 O2 Delivery Room Air Capillary Refill : Less Than 3 Seconds General Appearance: WD/WN, no apparent distress HEENT: PERRL/EOMI Neck: non-tender, full range of motion, supple Respiratory: chest non-tender, lungs clear, normal breath sounds, no respiratory distress, no accessory muscle use Gastrointestinal: soft, tenderness (general ttp, no rebound, mild guarding) Back: no CVA tenderness, no vertebral tenderness Extremities: normal range of motion, non-tender, no pedal edema, no calf tenderness, normal capillary refill Neurologic/Psychiatric: 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
[2022-11-10 15:12] VITALS: BP 134/73
[2022-11-10] MEDS ORDERED: ESOM40CA52 PO (15:39)
[2022-11-10] MEDS ORDERED: ONDA4TAB11 PO (15:39)
[2022-11-10] MEDS ORDERED: SUCR1ORA15 PO (15:39)
[2022-11-10] MEDS ORDERED: HYDR118S10 PO (15:39)
[2022-11-10] MEDS ORDERED: DICY10SY PO (15:39)
[2022-11-10] MEDS ORDERED: PNV1TABL81 PO (15:39)
[2022-11-10] MEDS ORDERED: ONDANSETRON 4 MG/2 ML (SDV) Z0FRAN IVP SCH (16:15)
[2022-11-10] MEDS: ONDANSETRON 4 MG/2 ML (SDV) Z0FRAN IVP SCH ×3 (16:20→23:30)
--- NOTE | 2022-11-10 17:09 | CONSULTATION REPORT ---
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 HISTORY OF PRESENT ILLNESS: The patient is a 32-year-old female known to us. She has had a longstanding history of gastroesophageal reflux disease and peptic ulcer disease and has been treated with proton pump inhibitors, which did help some; however, she would eventually have recurrence of symptoms. She also states that she did have a history of H. pylori gastritis; however, did not take the full therapeutic regimen due to the secondary side effects. She also did develop pain in the right upper abdominal quadrant usually after meals with radiation towards the back. She underwent an ultrasound, which did not show any gallstones and this was followed by a HIDA scan, which showed a low ejection fraction of 36% as well as reproduction of symptoms consistent with a biliary dyskinesia and she underwent a laparoscopic cholecystectomy and EGD on 04/01/2022. Biopsies at that time were negative for H. pylori as well as negative for Umanzor's esophagus. The patient continued to have reflux type of symptoms despite maximum medical therapy and she was found to have a moderate size hiatal hernia, 2.5 cm in size. She continued to have symptoms despite taking her medications regularly as well as proceeding with the necessary lifestyle and dietary accommodations, however, would continue to have symptoms. On 10/28/2022, she underwent a hiatal hernia repair and a Halima fundoplication. Before the surgery, she did have esophageal manometry studies, which showed normal waveforms contractions of the esophagus. She did well after the surgery and was able to tolerate liquids and had adequate pain control and was sent home the following morning. She presented to the Emergency Department with dry heaving and nausea and states that she has transitioned herself to soft foods; however, on intermittent episodes, she will have the development of nausea, vomiting as well as dry heaving. She states that last night her symptoms were significant and she decided to come to the Emergency Department. A CT scan was performed, which did show a distended stomach; however, no abnormalities and no recurrent hiatal hernia. She does not report any hematemesis, no coffee-ground emesis. She states that she is also having bowel movements. PAST MEDICAL HISTORY: Gastroesophageal reflux disease and history of hiatal hernia, ovarian cyst. PAST SURGICAL HISTORY: Ovarian cystectomy in 2010 and 2011, laparoscopic cholecystectomy in 03/2022, laparoscopic hiatal hernia repair and Halima fundoplication on 10/28/2022. ALLERGIES: PENICILLIN. MEDICATIONS: Dexilant 60 mg daily, Phenergan p.r.n., Mirena, Zofran p.r.n., lamotrigine 100 mg daily, clonidine 0.1 mg b.i.d. p.r.n. SOCIAL HISTORY: She does use a vaporized nicotine. She does not drink any alcohol, and minimal amounts of caffeinated beverages. FAMILY HISTORY: Mother, breast cancer; maternal grandmother, breast cancer. REVIEW OF SYSTEMS: A well-nourished female, currently in no acute distress. She is not experiencing any shortness of breath or difficulty breathing. No chest pain, palpitations, diaphoresis. She does report intermittent episodes of nausea, dry heaving and sometimes vomiting up just liquid material. No hematemesis, no coffee-ground emesis. She also has some mild regurgitation as well. No diarrhea, constipation, no red blood per rectum, no dark tarry stools. No fever, chills, no recent inadvertent weight loss. All other review of systems negative. PHYSICAL EXAMINATION: VITAL SIGNS: Temperature 37.8, blood pressure 134/73, pulse 76, respirations 18, pulse ox 99% on room air. CHEST: Clear. Good breath sounds bilaterally. HEART: Regular. No murmurs. EXTREMITIES: No lower extremity edema. Negative Homans sign. HEENT: No scleral icterus. No cervical lymphadenopathy. ABDOMEN: Soft, nondistended. There is mild tenderness along the incision sites, however, not severe. There are no hernias. Wounds are clean, dry, and intact with no redness or erythema. SKIN: Warm, dry. LABORATORY DATA: WBC 13.2, hemoglobin 13.0, hematocrit 39, platelets 359. BUN 10, creatinine 0.87. ASSESSMENT AND PLAN: A 32-year-old female with persistent nausea and vomiting, status post laparoscopic hiatal hernia repair and Halima fundoplication. This may be due to postsurgical changes. We do not feel that the wrap is too tight. She is able to get soft foods down into the stomach without any difficulty. 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 We will also start her on a combination of Decadron 4 mg to be taken with Zofran 4 mg q.4 hours simultaneously. We will also start her on a clear liquid diet and slowly advance as tolerated. If she continues to have these type of symptoms 6 weeks from the surgery date, we will then proceed with an EGD to look for the possibility of a lower esophageal sphincter stricture or slightly too tight of a wrap and proceed with a balloon dilatation. There also arises a possibility of some level of gastroparesis and we will also start her on Reglan 5 mg on a q.i.d. basis. Job ID: [id number] DocumentID: [id number] Dictated Date: 11/10/2022 15:24:12 Butcher Supervisor Date: 11/10/2022 16:41:00 Dictated By: MOHIT GOMES MD
[2022-11-10] MEDS: METOCLOPRAMIDE INJ 10 MG/2 ML (REGLAN) IVP SCH ×2 (17:54→23:30)
[2022-11-10] MEDS: HYDROcodone/APAP 7.5 MG/325 MG (LORTAB, LORCET PLUS) TABLET PO PRN (17:54)
[2022-11-10 20:06] VITALS: BP 132/71
[2022-11-10] MEDS: PANTOPRAZOLE 40 MG (PROTONIX) VIAL IV SCH (20:10)
[2022-11-10 23:40] VITALS: BP 147/74
[2022-11-11] MEDS: D5 1/2 NS W/KCL 20 MEQ/L 1,000 ML IV SCH ×4 (01:32→19:10)
[2022-11-11] MEDS: PROMETHAZINE INJ 25 MG/ML (PHENERGAN) AMP IVP PRN ×3 (02:06→22:19)
[2022-11-11] MEDS: HYDROcodone/APAP 7.5 MG/325 MG (LORTAB, LORCET PLUS) TABLET PO PRN (02:07)
[2022-11-11] MEDS: ONDANSETRON 4 MG/2 ML (SDV) Z0FRAN IVP SCH ×6 (03:29→23:31)
[2022-11-11 03:59] VITALS: BP 128/75
[2022-11-11] MEDS: METOCLOPRAMIDE INJ 10 MG/2 ML (REGLAN) IVP SCH ×4 (05:48→23:31)
[2022-11-11 05:52] LABS: BASOPHILS % (AUTO) 0 % (0-10); EOSINOPHILS % (AUTO) 0 % (0-10); HEMATOCRIT 32 % (35-52); HEMOGLOBIN 10.5 g/dL (11.5-16.0); LYMPHOCYTES % (AUTO) 7 % (12-44); MEAN CORPUSCULAR HEMOGLOBIN 30 pg (25-34); MEAN CORPUSCULAR HGB CONC 33 g/dL (32-36); MEAN CORPUSCULAR VOLUME 92 fL (80-99); MEAN PLATELET VOLUME 9.3 fL (9.0-12.2); MONOCYTES # (AUTO) 0.2 10^3/uL (0.0-1.0); MONOCYTES % (AUTO) 1 % (0-12); NEUTROPHILS # (AUTO) 12.7 10^3/uL (1.8-7.8); NEUTROPHILS % (AUTO) 91 % (42-75); PLATELET COUNT 297 10^3/uL (130-400); WHITE BLOOD COUNT 13.9 10^3/uL (4.3-11.0)
--- NOTE | 2022-11-11 06:21 | Progress Note - Hospitalist ---
Subjective HPI/CC On Admission Date Seen by Provider: Nov 11, 2022 Time Seen by Provider: 11:00 Subjective/Events-last exam Still vomiting Scop patch ordered No pain reported Review of Systems Gastrointestinal: Nausea, Vomiting Objective Exam Vital Signs Vital Signs Date Time Temp Pulse Resp B/P (MAP) Pulse Ox O2 Delivery O2 Flow Rate FiO2 11/11/22 20:16 Room Air 11/11/22 19:27 37.3 68 18 132/73 (92) 98 Capillary Refill : Less Than 3 Seconds General Appearance: WD/WN, Chronically ill, Moderate Distress Respiratory: Lungs Clear, Normal Breath Sounds Cardiovascular: Regular Rate, Rhythm Neurologic/Psychiatric: Alert, Oriented x3 Results/Procedures Lab Laboratory Tests 11/11/22 05:32 11/11/22 06:25 Patient resulted labs reviewed. Assessment/Plan Assessment and Plan Assess & Plan/Chief Complaint (1) Post-op pain Status: Acute Assessment & Plan: - Pain management per surgery, CLD will advance as tolerated (2) Intractable nausea and vomiting Status: Acute Assessment & Plan: - Improving JURGEN VEE DO Nov 11, 2022 06:21
[2022-11-11 06:23] LABS: LYMPHOCYTES % (MANUAL) 4 %; MONOCYTES % (MANUAL) 2 %; NEUTROPHILS % (MANUAL) 94 %; RBC MORPH NORMAL
[2022-11-11 06:41] LABS: ALBUMIN 4.3 GM/DL (3.2-4.5); POTASSIUM 3.8 MMOL/L (3.6-5.0)
[2022-11-11 06:42] LABS: CALCIUM 9.2 MG/DL (8.5-10.1)
[2022-11-11 06:44] LABS: TOTAL PROTEIN 7.1 GM/DL (6.4-8.2)
[2022-11-11 06:45] LABS: BILIRUBIN,TOTAL 0.4 MG/DL (0.1-1.0)
[2022-11-11 06:47] LABS: CREATININE SERUM 0.83 MG/DL (0.60-1.30)
[2022-11-11 08:04] VITALS: BP 109/59
[2022-11-11] MEDS: PANTOPRAZOLE 40 MG (PROTONIX) VIAL IV SCH ×2 (08:36→20:09)
[2022-11-11 11:30] VITALS: BP 135/64
[2022-11-11] MEDS ORDERED: SCOPOLAMINE 1.5 MG (TRANSDERM-SCOP) PATCH TD ONE (11:30)
[2022-11-11 15:47] VITALS: BP 122/79
[2022-11-11] MEDS ORDERED: ACETAMINOPHEN 325 MG TABLET PO PRN (18:00)
--- NOTE | 2022-11-11 18:01 | Progress Note ---
Subjective Date Seen by a Provider: Nov 11, 2022 Time Seen by a Provider: 17:30 Subjective/Events-last exam having persistent nausea and dry heaving. no issues with dysphagia. likely has some component of gastroparesis of unknown etiology. esophageal waveform contractions normal on manometry testing before surgery. Objective Exam Vital Signs Date Time Temp Pulse Resp B/P (MAP) Pulse Ox O2 Delivery O2 Flow Rate FiO2 11/11/22 15:47 37.3 65 18 122/79 (93) 98 Room Air 11/11/22 11:30 37.1 74 16 135/64 (87) 99 Room Air 11/11/22 08:04 37.0 69 16 109/59 (76) 98 Room Air 11/11/22 08:00 Room Air 11/11/22 07:00 68 11/11/22 03:59 37.2 63 18 128/75 (92) 97 Room Air 11/11/22 01:00 63 11/10/22 23:40 36.7 75 18 147/74 (98) 99 Room Air 11/10/22 20:10 Room Air 11/10/22 20:06 37.9 59 16 132/71 (91) 99 Room Air 11/10/22 19:00 90 I & O 11/11/22 07:00 Intake Total 2110 ml Output Total 900 ml Balance 1210 ml Capillary Refill : Less Than 3 Seconds General Appearance: No Apparent Distress HEENT: PERRL/EOMI Respiratory: Chest Non Tender Cardiovascular: Regular Rate, Rhythm Gastrointestinal: non tender, soft, tenderness Extremity: Normal Capillary Refill Neurologic/Psychiatric: Alert, Oriented x3 Skin: Normal Color Lymphatic: No Adenopathy Results Lab Laboratory Tests 11/11/22 05:32: White Blood Count 13.9H, Red Blood Count 3.47L, Hemoglobin 10.5L, Hematocrit 32L , Mean Corpuscular Volume 92, Mean Corpuscular Hemoglobin 30, Mean Corpuscular Hemoglobin Concent 33, Red Cell Distribution Width 13.3, Platelet Count 297, Mean Platelet Volume 9.3, Immature Granulocyte % (Auto) 1, Neutrophils (%) (Auto) 91H, Lymphocytes (%) (Auto) 7L, Monocytes (%) (Auto) 1, Eosinophils (%) (Auto) 0, Basophils (%) (Auto) 0, Neutrophils # (Auto) 12.7H, Lymphocytes # (Auto) 1.0, Monocytes # (Auto) 0.2, Eosinophils # (Auto) 0.0, Basophils # (Auto) 0.0, Immature Granulocyte # (Auto) 0.1, Neutrophils % (Manual) 94, Lymphocytes % (Manual) 4, Monocytes % (Manual) 2, Blood Morphology Comment NORMAL 11/11/22 06:25: Sodium Level 139, Potassium Level 3.8, Chloride Level 109H, Carbon Dioxide Level 19L, Anion Gap 11, Blood Urea Nitrogen 5L, Creatinine 0.83, Estimat Glomerular Filtration Rate 97, BUN/Creatinine Ratio 6, Glucose Level 166H, Calcium Level 9.2, Corrected Calcium 9.0, Total Bilirubin 0.4, Aspartate Amino Transf (AST/SGOT) 24, Alanine Aminotransferase (ALT/SGPT) 80H, Alkaline Phosphatase 121, Total Protein 7.1, Albumin 4.3 Assessment/Plan Assessment/Plan Assess & Plan/Chief Complaint persistent nausea/vomiting s/p lap danyell. may have some component of CHS. will continue antiemetics, pain med, steroids for now. will also add ativan for severe agitation which may be making worse. MOHIT GOMES MD Nov 11, 2022 18:01
[2022-11-11] MEDS ORDERED: LORazepam INJ 2 MG/ML (ATIVAN) VIAL ONE (18:04)
[2022-11-11] MEDS: LORazepam INJ 2 MG/ML (ATIVAN) VIAL IVP PRN (18:10)
[2022-11-11 19:27] VITALS: BP 132/73
[2022-11-11] MEDS: fentaNYL INJ 100 MCG/2 ML AMP IVP PRN (20:07)
[2022-11-11] MEDS: ENOXAPARIN 40 MG/0.4 ML (LOVENOX) SYR SC SCH (23:31)
[2022-11-12 00:09] VITALS: BP 119/74
[2022-11-12] MEDS: D5 1/2 NS W/KCL 20 MEQ/L 1,000 ML IV SCH ×2 (01:56→08:24)
[2022-11-12] MEDS: PROMETHAZINE INJ 25 MG/ML (PHENERGAN) AMP IVP PRN ×3 (02:10→20:02)
[2022-11-12] MEDS: ONDANSETRON 4 MG/2 ML (SDV) Z0FRAN IVP SCH ×6 (03:16→23:16)
[2022-11-12 03:33] VITALS: BP 152/72
[2022-11-12] MEDS: LORazepam INJ 2 MG/ML (ATIVAN) VIAL IVP PRN ×2 (04:11→14:41)
--- NOTE | 2022-11-12 05:46 | Progress Note - Hospitalist ---
Subjective HPI/CC On Admission Date Seen by Provider: Nov 12, 2022 Time Seen by Provider: 11:00 Subjective/Events-last exam No major issues Improved nausea No pain reported Review of Systems General: Fatigue, Malaise Gastrointestinal: Nausea, Vomiting Objective Exam Vital Signs Vital Signs Date Time Temp Pulse Resp B/P (MAP) Pulse Ox O2 Delivery O2 Flow Rate FiO2 11/12/22 19:30 37.3 60 17 117/59 (78) 95 Room Air Capillary Refill : Less Than 3 Seconds General Appearance: No Apparent Distress, WD/WN, Chronically ill Respiratory: Lungs Clear, Normal Breath Sounds Cardiovascular: Regular Rate, Rhythm Neurologic/Psychiatric: Alert, Oriented x3 Results/Procedures Lab Laboratory Tests 11/12/22 05:53 Patient resulted labs reviewed. Assessment/Plan Assessment and Plan Assess & Plan/Chief Complaint (1) Post-op pain Status: Acute Assessment & Plan: - Pain management per surgery, CLD will advance as tolerated (2) Intractable nausea and vomiting Status: Acute Assessment & Plan: - Improving JURGEN VEE DO Nov 12, 2022 05:46
[2022-11-12] MEDS: METOCLOPRAMIDE INJ 10 MG/2 ML (REGLAN) IVP SCH ×4 (06:06→23:15)
[2022-11-12 06:10] LABS: BASOPHILS % (AUTO) 0 % (0-10); EOSINOPHILS % (AUTO) 0 % (0-10); HEMATOCRIT 37 % (35-52); HEMOGLOBIN 12.3 g/dL (11.5-16.0); LYMPHOCYTES # (AUTO) 1.2 10^3/uL (1.0-4.0); LYMPHOCYTES % (AUTO) 7 % (12-44); MEAN CORPUSCULAR HEMOGLOBIN 30 pg (25-34); MEAN CORPUSCULAR HGB CONC 33 g/dL (32-36); MEAN CORPUSCULAR VOLUME 90 fL (80-99); MONOCYTES # (AUTO) 0.4 10^3/uL (0.0-1.0); MONOCYTES % (AUTO) 3 % (0-12); NEUTROPHILS # (AUTO) 14.8 10^3/uL (1.8-7.8); NEUTROPHILS % (AUTO) 90 % (42-75); PLATELET COUNT 338 10^3/uL (130-400); WHITE BLOOD COUNT 16.5 10^3/uL (4.3-11.0)
[2022-11-12 06:33] LABS: ALBUMIN 3.7 GM/DL (3.2-4.5); BILIRUBIN,TOTAL 0.3 MG/DL (0.1-1.0); CREATININE SERUM 0.78 MG/DL (0.60-1.30); POTASSIUM 3.7 MMOL/L (3.6-5.0); TOTAL PROTEIN 6.2 GM/DL (6.4-8.2)
[2022-11-12 06:53] LABS: LYMPHOCYTES % (MANUAL) 13 %; MONOCYTES % (MANUAL) 5 %; NEUTROPHILS % (MANUAL) 82 %; RBC MORPH NORMAL
[2022-11-12 07:17] VITALS: BP 110/67
[2022-11-12] MEDS: PANTOPRAZOLE 40 MG (PROTONIX) VIAL IV SCH ×2 (08:22→23:14)
[2022-11-12] MEDS: fentaNYL INJ 100 MCG/2 ML AMP IVP PRN ×4 (08:23→20:15)
[2022-11-12 11:02] VITALS: BP 122/77
--- NOTE | 2022-11-12 12:14 | Progress Note ---
Subjective Date Seen by a Provider: Nov 12, 2022 Time Seen by a Provider: 11:00 Subjective/Events-last exam doing better. tolerating clears. starting solids. no abd pain. Objective Exam Vital Signs Date Time Temp Pulse Resp B/P (MAP) Pulse Ox O2 Delivery O2 Flow Rate FiO2 11/12/22 11:02 36.9 60 18 122/77 (92) 99 Room Air 11/12/22 08:00 Room Air 11/12/22 07:17 37.7 64 16 110/67 (81) 98 Room Air 11/12/22 03:33 36.1 65 18 152/72 (98) 98 Room Air 11/12/22 00:09 37.1 74 18 119/74 (89) 99 Room Air 11/11/22 20:16 Room Air 11/11/22 19:27 37.3 68 18 132/73 (92) 98 Room Air 11/11/22 15:47 37.3 65 18 122/79 (93) 98 Room Air I & O 11/12/22 07:00 Intake Total 4470 ml Balance 4470 ml Capillary Refill : Less Than 3 Seconds General Appearance: No Apparent Distress HEENT: PERRL/EOMI Neck: Full Range of Motion Respiratory: Chest Non Tender, Decreased Breath Sounds Cardiovascular: Regular Rate, Rhythm Gastrointestinal: normal bowel sounds, soft Extremity: Normal Capillary Refill Neurologic/Psychiatric: Alert, Oriented x3 Skin: Normal Color Lymphatic: No Adenopathy Results Lab Laboratory Tests 11/12/22 05:53: White Blood Count 16.5H, Red Blood Count 4.11, Hemoglobin 12.3, Hematocrit 37, Mean Corpuscular Volume 90, Mean Corpuscular Hemoglobin 30, Mean Corpuscular Hemoglobin Concent 33, Red Cell Distribution Width 13.4, Platelet Count 338, Mean Platelet Volume 9.0, Immature Granulocyte % (Auto) 1, Neutrophils (%) (Auto) 90H, Lymphocytes (%) (Auto) 7L, Monocytes (%) (Auto) 3, Eosinophils (%) (Auto) 0, Basophils (%) (Auto) 0, Neutrophils # (Auto) 14.8H, Lymphocytes # (Auto) 1.2, Monocytes # (Auto) 0.4, Eosinophils # (Auto) 0.0, Basophils # (Auto) 0.0, Immature Granulocyte # (Auto) 0.1, Neutrophils % (Manual) 82, Lymphocytes % (Manual) 13, Monocytes % (Manual) 5, Blood Morphology Comment NORMAL, Sodium Level 137, Potassium Level 3.7, Chloride Level 108H, Carbon Dioxide Level 19L, Anion Gap 10, Blood Urea Nitrogen 7, Creatinine 0.78, Estimat Glomerular Filtration Rate 105, BUN/Creatinine Ratio 9, Glucose Level 149H, Calcium Level 9.0, Corrected Calcium 9.2, Total Bilirubin 0.3, Aspartate Amino Transf (AST/SGOT) 51H, Alanine Aminotransferase (ALT/SGPT) 95H, Alkaline Phosphatase 112, Total Protein 6.2L, Albumin 3.7 Assessment/Plan Assessment/Plan Assess & Plan/Chief Complaint persistent nausea/vomiting s/p lap danyell. may have some component of CHS. will continue antiemetics, pain med, steroids for now. will also add ativan for severe agitation which may be making worse. doing better. tolerating clears. will advance as tolerated. MOHIT GOMES MD Nov 12, 2022 12:14
[2022-11-12] MEDS ORDERED: ONDA4TAB11 SL (12:19)
[2022-11-12] MEDS ORDERED: PROM25TA14 PO (12:19)
[2022-11-12] MEDS ORDERED: DECADRON 4 MG PO (12:19)
--- NOTE | 2022-11-12 12:20 | Discharge Inst-Surgical ---
D/C Lap Instructions-KIDCalixto New, Converted, or Re-Newed RX: RX on Chart Follow Up PRN Activity as tolerated No driving for 24 hours Maintain clear liquids, slowly advance to Regular Diet as tolerated. Symptoms to Report: Fever over 101 degree F, Nausea/Vomiting Infection Signs and Symptoms to report: Increased redness, Foul odor of wound, Increased drainage Bathing instructions: May shower Operative Area Clean/Dry; Keep incision clean/dry If any problems/questions: Contact your physician or go to Emergency Room MOHIT GOMES MD Nov 12, 2022 12:20
[2022-11-12 16:00] VITALS: BP 112/57
[2022-11-12 19:30] VITALS: BP 117/59
[2022-11-12] MEDS: ENOXAPARIN 40 MG/0.4 ML (LOVENOX) SYR SC SCH (21:08)
[2022-11-13 00:21] VITALS: BP 121/79
[2022-11-13] MEDS: fentaNYL INJ 100 MCG/2 ML AMP IVP PRN ×3 (03:01→09:43)
[2022-11-13] MEDS: ONDANSETRON 4 MG/2 ML (SDV) Z0FRAN IVP SCH ×3 (03:01→11:49)
[2022-11-13 03:42] VITALS: BP 117/70
[2022-11-13] MEDS: METOCLOPRAMIDE INJ 10 MG/2 ML (REGLAN) IVP SCH ×2 (05:18→11:49)
[2022-11-13 06:21] LABS: BASOPHILS % (AUTO) 0 % (0-10); EOSINOPHILS % (AUTO) 0 % (0-10); HEMATOCRIT 42 % (35-52); HEMOGLOBIN 13.9 g/dL (11.5-16.0); LYMPHOCYTES # (AUTO) 1.4 10^3/uL (1.0-4.0); LYMPHOCYTES % (AUTO) 11 % (12-44); MEAN CORPUSCULAR HEMOGLOBIN 30 pg (25-34); MEAN CORPUSCULAR HGB CONC 33 g/dL (32-36); MEAN CORPUSCULAR VOLUME 91 fL (80-99); MEAN PLATELET VOLUME 9.4 fL (9.0-12.2); MONOCYTES # (AUTO) 0.5 10^3/uL (0.0-1.0); MONOCYTES % (AUTO) 4 % (0-12); NEUTROPHILS # (AUTO) 10.4 10^3/uL (1.8-7.8); NEUTROPHILS % (AUTO) 84 % (42-75); PLATELET COUNT 377 10^3/uL (130-400); WHITE BLOOD COUNT 12.3 10^3/uL (4.3-11.0)
[2022-11-13 06:42] LABS: ALBUMIN 4.2 GM/DL (3.2-4.5); BILIRUBIN,TOTAL 0.4 MG/DL (0.1-1.0); CALCIUM 9.9 MG/DL (8.5-10.1); CREATININE SERUM 0.86 MG/DL (0.60-1.30); POTASSIUM 3.9 MMOL/L (3.6-5.0)
[2022-11-13 07:40] VITALS: BP 99/51
[2022-11-13] MEDS: PANTOPRAZOLE 40 MG (PROTONIX) VIAL IV SCH (08:52)
[2022-11-13 11:58] VITALS: BP 117/65
--- NOTE | 2022-11-13 12:23 | Progress Note ---
Subjective Date Seen by a Provider: Nov 13, 2022 Time Seen by a Provider: 11:10 Subjective/Events-last exam Patient seen with Dr. Wilson. Patient reports still having nausea. Did eat small amount of breakfast and able to stay down without vomiting. Denies any abdominal pain. Ambulating. Reports Phenergan seems to work the best to control her nausea. Objective Exam Vital Signs Date Time Temp Pulse Resp B/P (MAP) Pulse Ox O2 Delivery O2 Flow Rate FiO2 11/13/22 11:58 36.6 77 16 117/65 (82) 97 Room Air 11/13/22 08:00 96 Room Air 11/13/22 07:40 37.1 55 14 99/51 (67) 96 Room Air 11/13/22 03:42 36.1 65 18 117/70 (86) 97 Room Air 11/13/22 00:21 37.2 64 18 121/79 (93) 97 Room Air 11/12/22 20:00 Room Air 11/12/22 19:30 37.3 60 17 117/59 (78) 95 Room Air 11/12/22 16:00 37.6 56 18 112/57 (75) 95 Room Air I & O 11/13/22 07:00 Intake Total 2200 ml Balance 2200 ml Capillary Refill : Less Than 3 Seconds General Appearance: No Apparent Distress, WD/WN Neck: Normal Inspection, Supple Respiratory: No Accessory Muscle Use, No Respiratory Distress Gastrointestinal: normal bowel sounds, non tender, soft, other (Abdominal incisions C/D/I) Extremity: Normal Inspection, Normal Range of Motion Neurologic/Psychiatric: Alert, Oriented x3 Skin: Normal Color, Warm/Dry Results Lab Laboratory Tests 11/13/22 05:17: White Blood Count 12.3H, Red Blood Count 4.63, Hemoglobin 13.9, Hematocrit 42, Mean Corpuscular Volume 91, Mean Corpuscular Hemoglobin 30, Mean Corpuscular Hemoglobin Concent 33, Red Cell Distribution Width 13.3, Platelet Count 377, Mean Platelet Volume 9.4, Immature Granulocyte % (Auto) 1, Neutrophils (%) (Auto) 84H, Lymphocytes (%) (Auto) 11L, Monocytes (%) (Auto) 4, Eosinophils (%) (Auto) 0, Basophils (%) (Auto) 0, Neutrophils # (Auto) 10.4H, Lymphocytes # (Auto) 1.4, Monocytes # (Auto) 0.5, Eosinophils # (Auto) 0.0, Basophils # (Auto) 0.0, Immature Granulocyte # (Auto) 0.1, Sodium Level 141, Potassium Level 3.9, Chloride Level 104, Carbon Dioxide Level 24, Anion Gap 13, Blood Urea Nitrogen 10, Creatinine 0.86, Estimat Glomerular Filtration Rate 93, BUN/Creatinine Ratio 12, Glucose Level 105, Calcium Level 9.9, Corrected Calcium 9.7, Total Bilirubin 0.4, Aspartate Amino Transf (AST/SGOT) 34, Alanine Aminotransferase (ALT/SGPT) 117H, Alkaline Phosphatase 116, Total Protein 7.0, Albumin 4.2 Assessment/Plan Assessment/Plan Assess & Plan/Chief Complaint persistent nausea/vomiting s/p lap danyell. may have some component of CHS. will continue antiemetics, pain med, steroids for now. will also add ativan for severe agitation which may be making worse. doing better. will advance as tolerated. If patient tolerates lunch today she may be DC'd home SAMUEL GUEVARA APRN Nov 13, 2022 12:23
[2022-11-13] MEDS ORDERED: TRAM50TA3 PO (13:33)
[2022-11-13 14:20] VITALS: BP 117/65
[2022-11-14] MEDS ORDERED: SCOPOLAMINE PATCH REMOVAL TP SCH (08:59)
== END 2022-11-13 14:20 | disposition home or self-care (01) | DRG 948 ==
LOC: EDUNIT# 00:54 → ER 00:55 → 4TH 03:30
PROVIDERS: ADMIT Surgery; ATTEND Surgery
DX: G89.18 Other acute postprocedural pain (principal); R11.2 Nausea with vomiting, unspecified; E86.0 Dehydration; Z48.815 Encounter for surgical aftercare following surgery on the digestive system; Z79.899 Other long term (current) drug therapy; F17.210 Nicotine dependence, cigarettes, uncomplicated; F12.90 Cannabis use, unspecified, uncomplicated; K21.9 Gastro-esophageal reflux disease without esophagitis; F41.9 Anxiety disorder, unspecified; F31.9 Bipolar disorder, unspecified
CPT/HCPCS: 36415; 71045; 74177; 80053; 80306; 80320; 81000; 82150; 83690; 83735; 84703; 85007; 85025; 85027; 93041

== ENCOUNTER 2022-11-17 08:14 | Emergency (ER) | payer MEDICAID ==
[~2022-11-17] VITALS: Ht 160 cm; Wt 77.0 kg
[~2022-11-17 08:14] MED LIST changes: +DECADRON 4 MG PO; +ESOM40CA52 PO; +PNV1TABL81 PO; +SUCR1ORA15 PO; +TRAM50TA3 PO
[2022-11-17] MEDS ORDERED: NS IV 1000 ML 1,000 ML IV STA (08:22)
--- NOTE | 2022-11-17 08:22 | ED Abdominal Pain ---
General Chief Complaint: Abdominal/GI Problems Stated Complaint: DRY HEAVING History of Present Illness Date Seen by Provider: Nov 17, 2022 Time Seen by Provider: 08:21 Initial Comments 32-year-old female presents with "dry heaving" patient reports that started during the night last night has continued during the day. Patient had a hiatal hernia repair on 10/27/2022. She was admitted for intractable nausea and vomiting 11/11 through 11/13. Patient has not called Dr. Wilson who performed the surgery. She denies any fevers or chills. She is having some mild discomfort in the epigastric region. Patient does admit to daily marijuana use. Her symptoms were there prior to her surgery that she is having today. Allergies and Home Medications Allergies Coded Allergies: Penicillins (Verified Allergy, Unknown, 10/28/22) Patient Home Medication List Home Medication List Reviewed: Yes Cariprazine Hydrochloride (Vraylar) 1.5 Mg Capsule, 1.5 MG PO DAILY, (Reported) Entered as Reported by: Paula Porter on 10/27/22 1221 Clonidine HCl (Clonidine HCl) 0.1 Mg Tablet, 0.1 MG PO BID PRN for ANXIETY/SLEEP, (Reported) Entered as Reported by: Paula Porter on 10/27/22 1221 Diclofenac Sodium (Diclofenac Sodium) 50 Mg Tablet.dr, 50 MG PO BID PRN for INFLAMMATION, (Reported) Entered as Reported by: Paula Porter on 10/27/22 1221 Dicyclomine HCl (Dicyclomine HCl) 10 Mg/5 Ml Syrup, 5 ML PO QID, (Reported) Entered as Reported by: CYNTHIA LOOMIS on 11/10/22 1539 Esomeprazole Magnesium (Esomeprazole Magnesium) 40 Mg Capsule.dr, 40 MG PO HS, (Reported) Entered as Reported by: CYNTHIA LOOMIS on 11/10/22 1539 Hydrocodone/Acetaminophen (Hydrocodone-Acetamn 7.5-325/15) 7.5 Mg-325 Mg/15 Ml Solution, 15 ML PO Q6H PRN for PAIN-MODERATE (5-7), (Reported) Entered as Reported by: CYNTHIA LOOMIS on 11/10/22 1539 Lamotrigine (Lamotrigine) 100 Mg Tablet, 100 MG PO HS, (Reported) Entered as Reported by: Paula Porter on 10/27/22 1221 Ondansetron (Ondansetron Odt) 4 Mg Tab.rapdis, 4 MG PO Q4H PRN for NAUSEA/VOMITING-1ST LINE, (Reported) Entered as Reported by: CYNTHIA LOOMIS on 11/10/22 1539 Ondansetron (Ondansetron Odt) 4 Mg Tab.rapdis, 4 MG SL Q4H PRN for NAUSEA/VOMITING Prescribed by: MOHIT WILSON on 11/12/22 1219 Pnv No.122/Iron/Folic Acid ( Multi Tablet) 27 Mg Iron-800 Mcg Tablet, 1 EACH PO DAILY, (Reported) Entered as Reported by: CYNTHIA LOOMIS on 11/10/22 1539 Promethazine HCl (Promethazine Tablet) 25 Mg Tablet, 12.5 MG PO Q3HR PRN for NAUSEA/VOMITING Prescribed by: MOHIT WILSON on 11/12/22 1219 Sucralfate (Sucralfate) 1 Gram/10 Ml Oral.susp, 10 ML PO QID, (Reported) Entered as Reported by: CYNTHIA LOOMIS on 11/10/22 1539 Tramadol HCl (Tramadol HCl) 50 Mg Tablet, 50-100 MG PO 4-6 HOUR PRN for PAIN Prescribed by: AILYN CLAYTON on 11/13/22 1333 [decadron 4mg] , 4 MG PO Q4H Prescribed by: MOHIT WILSON on 11/12/22 1219 Discontinued Medications Cimetidine (Acid Pedigree Researcher (CIMETIDINE)) 200 Mg Tablet, 400 MG PO BID, (Reported) Discontinued Reason: No Longer Taking Entered as Reported by: Paula Porter on 10/27/22 1221 Dicyclomine HCl (Dicyclomine HCl) 10 Mg/5 Ml Syrup, 10 MG PO QID Discontinued Reason: No Longer Taking Prescribed by: ROSARIO SHARMA on 11/04/22 1609 Esomeprazole Magnesium (Nexium) 40 Mg Cap, 40 MG PO DAILY, (Reported) Discontinued Reason: No Longer Taking Entered as Reported by: Paula Porter on 10/27/22 1221 Hydrocodone/Acetaminophen (Hydrocodon-Acetamin 7.5-325/15 ML) 7.5 Mg-325 Mg/15 Ml (15 Ml) Solution, 15 ML PO Q4H Discontinued Reason: No Longer Taking Prescribed by: SAMUEL GUEVARA on 10/28/22 1449 Hydrocodone/Acetaminophen (Hydrocodone-Acetamn 7.5-325/15) 7.5 Mg-325 Mg/15 Ml Solution, 15 ML PO Q6H PRN for PAIN-MODERATE (5-7) Discontinued Reason: No Longer Taking Prescribed by: ROSARIO SHARMA on 11/04/22 1607 Multivit with Calcium,Iron,Min (Women's Daily Formula) 27 Mg-0.4 Mg Tablet, 1 EACH PO DAILY, (Reported) Discontinued Reason: No Longer Taking Entered as Reported by: Paula Porter on 10/27/22 1221 Sucralfate (Carafate) 1 Gram/10 Ml Oral.susp, 1 GM PO QID Discontinued Reason: No Longer Taking Prescribed by: ROSARIO SHARMA on 11/04/22 1609 Review of Systems Review of Systems Constitutional: No chills, No fever Respiratory: Denies No Symptoms Reported Cardiovascular: Denies No Symptoms Reported Gastrointestinal: Abdominal Pain (epigastric ), Nausea; Denies Vomiting Musculoskeletal: no symptoms reported Skin: no symptoms reported Psychiatric/Neurological: No Symptoms Reported Past Ufwpwbh-[id number]-Rmwibn Hx Immunizations Up To Date Tetanus Booster (TDap): Less than 5yrs First/Initial COVID19 Vaccinat: none Second COVID19 Vaccination Yann: none Third COVID19 Vaccination Date: none Seasonal Allergies Seasonal Allergies: Yes Past Medical History Surgery/Hospitalization HX: HERNIA REPAIR ON 10/28/2022. 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 PYLORI) Gastroesophageal Reflux, Esophagitis, Hiatal Hernia, Gall Bladder Disease Musculoskeletal: No Endocrine: No HEENT: No Loss of Vision: Denies Hearing Impairment: Denies Cancer: No Psychosocial: Yes Sleep Difficulties, Anxiety, Bipolar, Depression Integumentary: No Blood Disorders: No Adverse Reaction/Blood Tranf: No Family Medical History SOCIAL HISTORY: -SMOKES 1 PPD OF CIGARETTES -VAPES NICOTINE DAILY -ETOH--OCCASIONAL USE -DRUGS--SMOKES MARIJUANA DAILY PAST SURGICAL HISTORY: -OVARIAN CYST REMOVAL X 2 IN 2010 AND 2012 -LAP CHOLECYSTECTOMY 03/[address] WILSON -EGD 03/[address] WILSON -HIATAL HERNIA REPAIR 10/28/[address] WILSON Physical Exam Vital Signs Vital Signs - First Documented 11/17/22 08:15 Temp 36.8 Pulse 75 Resp 18 B/P (MAP) 130/94 (106) Pulse Ox 98 O2 Delivery Room Air Capillary Refill : Height/Weight/BMI Height: '" Weight: lbs. oz. kg; 29.92 BMI Method: General Appearance: WD/WN, mild distress Respiratory: chest non-tender, lungs clear, normal breath sounds Cardiovascular: normal peripheral pulses, regular rate, rhythm Gastrointestinal: soft, tenderness (epigastric ) Extremities: normal range of motion Neurologic/Psychiatric: alert, normal mood/affect, oriented x 3 Skin: normal color, warm/dry Progress/Results/Core Measures Results/Orders Lab Results Laboratory Tests Test 11/17/22 08:18 11/17/22 09:58 Range/Units White Blood Count 19.9 H 4.3-11.0 10^3/uL Red Blood Count 4.61 3.80-5.11 10^6/uL Hemoglobin 14.0 11.5-16.0 g/dL Hematocrit 41 35-52 % Mean Corpuscular Volume 89 80-99 fL Mean Corpuscular Hemoglobin 30 25-34 pg Mean Corpuscular Hemoglobin Concent 34 32-36 g/dL Red Cell Distribution Width 13.1 10.0-14.5 % Platelet Count 419 H 130-400 10^3/uL Mean Platelet Volume 9.0 9.0-12.2 fL Immature Granulocyte % (Auto) 2 % Neutrophils (%) (Auto) 61 42-75 % Lymphocytes (%) (Auto) 29 12-44 % Monocytes (%) (Auto) 8 0-12 % Eosinophils (%) (Auto) 0 0-10 % Basophils (%) (Auto) 0 0-10 % Neutrophils # (Auto) 12.1 H 1.8-7.8 10^3/uL Lymphocytes # (Auto) 5.7 H 1.0-4.0 10^3/uL Monocytes # (Auto) 1.6 H 0.0-1.0 10^3/uL Eosinophils # (Auto) 0.0 0.0-0.3 10^3/uL Basophils # (Auto) 0.0 0.0-0.1 10^3/uL Immature Granulocyte # (Auto) 0.5 H 0.0-0.1 10^3/uL Neutrophils % (Manual) 62 % Lymphocytes % (Manual) 25 % Monocytes % (Manual) 6 % Eosinophils % (Manual) 1 % Band Neutrophils 2 % Reactive Lymphocytes 4 % Macrocytosis SLIGHT Sodium Level 139 135-145 MMOL/L Potassium Level 3.8 3.6-5.0 MMOL/L Chloride Level 107 98-107 MMOL/L Carbon Dioxide Level 22 21-32 MMOL/L Anion Gap 10 5-14 MMOL/L Blood Urea Nitrogen 15 7-18 MG/DL Creatinine 0.82 0.60-1.30 MG/DL Estimat Glomerular Filtration Rate 99 BUN/Creatinine Ratio 18 Glucose Level 101 70-105 MG/DL Calcium Level 8.7 8.5-10.1 MG/DL Corrected Calcium 8.9 8.5-10.1 MG/DL Total Bilirubin 0.6 0.1-1.0 MG/DL Aspartate Amino Transf (AST/SGOT) 13 5-34 U/L Alanine Aminotransferase (ALT/SGPT) 44 0-55 U/L Alkaline Phosphatase 81 40-136 U/L Total Protein 6.1 L 6.4-8.2 GM/DL Albumin 3.8 3.2-4.5 GM/DL Lipase 21 8-78 U/L Urine Color YELLOW Urine Clarity CLEAR Urine pH 7.0 5-9 Urine Specific [place] 1.020 1.016-1.022 Urine Protein NEGATIVE NEGATIVE Urine Glucose (UA) NEGATIVE NEGATIVE Urine Ketones NEGATIVE NEGATIVE Urine Nitrite NEGATIVE NEGATIVE Urine Bilirubin NEGATIVE NEGATIVE Urine Urobilinogen 0.2 < = 1.0 MG/DL Urine Leukocyte Esterase NEGATIVE NEGATIVE Urine RBC (Auto) NEGATIVE NEGATIVE Urine RBC NONE /HPF Urine WBC NONE /HPF Urine Squamous Epithelial Cells 2-5 /HPF Urine Crystals PRESENT H /LPF Urine Amorphous Sediment MOD ANALIAS PHOSPHATE H /LPF Urine Bacteria TRACE /HPF Urine Casts NONE /LPF Urine Mucus SMALL H /LPF Urine Culture Indicated NO Urine Opiates Screen NEGATIVE NEGATIVE Urine Oxycodone Screen NEGATIVE NEGATIVE Urine Methadone Screen NEGATIVE NEGATIVE Urine Propoxyphene Screen NEGATIVE NEGATIVE Urine Barbiturates Screen NEGATIVE NEGATIVE Ur Tricyclic Antidepressants Screen NEGATIVE NEGATIVE Urine Phencyclidine Screen NEGATIVE NEGATIVE Urine Amphetamines Screen NEGATIVE NEGATIVE Urine Methamphetamines Screen NEGATIVE NEGATIVE Urine Benzodiazepines Screen NEGATIVE NEGATIVE Urine Cocaine Screen NEGATIVE NEGATIVE Urine Cannabinoids Screen POSITIVE H NEGATIVE My Orders Orders - LUBA SALINAS DO Cbc With Automated Diff (11/17/22 08:22) Comprehensive Metabolic Panel (11/17/22 08:22) Lipase (11/17/22 08:22) Ondansetron Injection (Zofran Injectio (11/17/22 08:30) Ns Iv 1000 Ml (Sodium Chloride 0.9%) (11/17/22 08:22) Drug Screen Stat (Urine) (11/17/22 08:22) Ua Culture If Indicated (11/17/22 08:22) Manual Differential (11/17/22 08:18) Haloperidol Injection (Haldol Injectio (11/17/22 10:00) Diphenhydramine Injection (Benadryl Inje (11/17/22 09:58) Medications Given in ED Current Medications Medications Dose Ordered Sig/Sanjay Route Start Time Stop Time Status Last Admin Dose Admin Ondansetron HCl 4 mg ONCE ONCE IVP 11/17/22 08:30 11/17/22 08:31 DC 11/17/22 08:32 4 MG Vital Signs/I&O 11/17/22 08:15 Temp 36.8 Pulse 75 Resp 18 B/P (MAP) 130/94 (106) Pulse Ox 98 O2 Delivery Room Air Departure Impression Primary Impression: Cannabis hyperemesis syndrome concurrent with and due to cannabis abuse Disposition: 01 HOME, SELF-CARE Condition: Stable Departure-Patient Inst. Referrals: [facility] (PCP/Family) Primary Care Physician Patient Instructions: Cannabis Hyperemesis Syndrome Add. Discharge Instructions: Your symptoms will only improve with completely quitting marijuana. You can continue to try warm showers and capsaicin cream over your abdomen. There is limited treatment options otherwise. Please follow-up with Dr. Wilson as needed All discharge instructions reviewed with patient and/or family. Voiced understanding. LUBA SALINAS DO Nov 17, 2022 08:22
[2022-11-17] MEDS ORDERED: ONDANSETRON 4 MG/2 ML (SDV) Z0FRAN IVP ONE (08:30)
[2022-11-17 09:08] LABS: BASOPHILS % (AUTO) 0 % (0-10); EOSINOPHILS % (AUTO) 0 % (0-10); HEMATOCRIT 41 % (35-52); LYMPHOCYTES # (AUTO) 5.7 10^3/uL (1.0-4.0); LYMPHOCYTES % (AUTO) 29 % (12-44); MEAN CORPUSCULAR HEMOGLOBIN 30 pg (25-34); MEAN CORPUSCULAR HGB CONC 34 g/dL (32-36); MEAN CORPUSCULAR VOLUME 89 fL (80-99); MONOCYTES # (AUTO) 1.6 10^3/uL (0.0-1.0); MONOCYTES % (AUTO) 8 % (0-12); NEUTROPHILS # (AUTO) 12.1 10^3/uL (1.8-7.8); NEUTROPHILS % (AUTO) 61 % (42-75); PLATELET COUNT 419 10^3/uL (130-400); WHITE BLOOD COUNT 19.9 10^3/uL (4.3-11.0)
[2022-11-17 09:21] LABS: ALBUMIN 3.8 GM/DL (3.2-4.5); POTASSIUM 3.8 MMOL/L (3.6-5.0)
[2022-11-17 09:22] LABS: CALCIUM 8.7 MG/DL (8.5-10.1)
[2022-11-17 09:23] LABS: TOTAL PROTEIN 6.1 GM/DL (6.4-8.2)
[2022-11-17 09:25] LABS: BILIRUBIN,TOTAL 0.6 MG/DL (0.1-1.0)
[2022-11-17 09:27] LABS: CREATININE SERUM 0.82 MG/DL (0.60-1.30)
[2022-11-17 09:39] LABS: BAND NEUTROPHILS 2 %; EOSINOPHILS % (MANUAL) 1 %; LYMPHOCYTES % (MANUAL) 25 %; MONOCYTES % (MANUAL) 6 %; NEUTROPHILS % (MANUAL) 62 %; REACTIVE LYMPHOCYTES 4 %
[2022-11-17] MEDS ORDERED: diphenhydrAMINE 50 MG/ML INJ (BENADRYL) IV STA (09:58)
[2022-11-17] MEDS ORDERED: HALOPERIDOL 5 MG/ML (HALDOL) VIAL IV ONE (10:00)
[2022-11-17 10:08] LABS: BILIRUBIN,URINE NEGATIVE (NEGATIVE); CLARITY,URINE CLEAR; COLOR,URINE YELLOW; GLUCOSE, URINE (UA) NEGATIVE (NEGATIVE); KETONES,URINE NEGATIVE (NEGATIVE); LEUKOCYTE ESTERASE ,URINE NEGATIVE (NEGATIVE); NITRITE,URINE NEGATIVE (NEGATIVE); PROTEIN,URINE NEGATIVE (NEGATIVE)
[2022-11-17 10:19] LABS: BACTERIA,URINE TRACE /HPF
[2022-11-17 10:20] LABS: AMORPHOUS SEDIMENT,UR MOD AMOR PHOSPHATE /LPF
[2022-11-17 10:22] LABS: AMPHETAMINE SCREEN, URINE NEGATIVE (NEGATIVE); BARBITURATE SCREEN URINE NEGATIVE (NEGATIVE); BENZODIAZEPINES SCREEN URINE NEGATIVE (NEGATIVE); CANNABINOID SCREEN, URINE POSITIVE (NEGATIVE); COCAINE SCREEN URINE NEGATIVE (NEGATIVE); METHADONE STAT NEGATIVE (NEGATIVE); OPIATE SCREEN URINE NEGATIVE (NEGATIVE); OXYCODONE STAT NEGATIVE (NEGATIVE); PROPOXYPHENE STAT NEGATIVE (NEGATIVE); TRICYCLIC ANTIDEPRESSANTS SCRE NEGATIVE (NEGATIVE)
[2022-11-17 11:26] VITALS: BP 103/77
== END 2022-11-17 11:26 | disposition home or self-care (01) ==
LOC: EDUNIT# 08:14 → ER 08:15
DX: F12.188 Cannabis abuse with other cannabis-induced disorder (principal); R10.13 Epigastric pain; F17.210 Nicotine dependence, cigarettes, uncomplicated; F17.290 Nicotine dependence, other tobacco product, uncomplicated; Z90.49 Acquired absence of other specified parts of digestive tract; Z28.310 Unvaccinated for COVID-19
CPT/HCPCS: 36415; 80053; 80306; 81000; 83690; 85007; 85027

== ENCOUNTER 2022-12-12 11:22 | Emergency (ER) | payer MEDICAID ==
[~2022-12-12] VITALS: Ht 160 cm; Wt 75.3 kg
--- NOTE | 2022-12-12 12:17 | Diagnostic Imaging Report ---
EXAMINATION: Left knee radiograph EXAM DATE: 12/12/2022 12:11 PM COMPARISON: None available. HISTORY: Left knee pain TECHNIQUE: 3 views FINDINGS: There is no acute fracture, dislocation, or destructive osseous process. The joint spaces are normal. The soft tissues are normal. IMPRESSION: 1. No acute osseous abnormality. Dictated by: Dictated on workstation # [id number]
[2022-12-12] MEDS ORDERED: IBUPROFEN 800 MG (MOTRIN) TAB PO ONE (12:30)
--- NOTE | 2022-12-12 12:33 | ED Lower Extremity ---
General Chief Complaint: Lower Extremity Stated Complaint: KNEE PAIN AFTER FALL Nursing Triage Note: pt presents to ED with left medial knee pain after tripping while going up the stairs and landing on left knee. pt ambualted to FT1 with mild limp on left side. minor swelling noted at triage. Source: patient Exam Limitations: no limitations History of Present Illness Date Seen by Provider: Dec 12, 2022 Time Seen by Provider: 11:49 Initial Comments 32-year-old female presents with left knee injury. She states that she fell going up the stairs around 7 AM. She reports that her knee twisted and the inner part of her knee hit the stair. She reported a pulling feeling in her medial knee during the fall. She denies feeling a pop. She reports that she feels as though her knee is going to give out when she walks. She describes the pain as sharp. She has not taken any pain medication. She reports she has been alternating ice and heat. She reports feeling as though her knee is swollen. She reports some numbness in her inner knee. She was able to ambulate to ED e xam room. Allergies and Home Medications Allergies Coded Allergies: Penicillins (Verified Allergy, Unknown, 10/28/22) Patient Home Medication List Home Medication List Reviewed: Yes Cariprazine Hydrochloride (Vraylar) 1.5 Mg Capsule, 1.5 MG PO DAILY, (Reported) Entered as Reported by: Paula Porter on 10/27/22 1221 Clonidine HCl (Clonidine HCl) 0.1 Mg Tablet, 0.1 MG PO BID PRN for ANXIETY/SLEEP, (Reported) Entered as Reported by: Paula oPrter on 10/27/22 1221 Diclofenac Sodium (Diclofenac Sodium) 50 Mg Tablet.dr, 50 MG PO BID PRN for INFLAMMATION, (Reported) Entered as Reported by: Paula Porter on 10/27/22 1221 Dicyclomine HCl (Dicyclomine HCl) 10 Mg/5 Ml Syrup, 5 ML PO QID, (Reported) Entered as Reported by: CYNTHIA LOOMIS on 11/10/22 1539 Esomeprazole Magnesium (Esomeprazole Magnesium) 40 Mg Capsule.dr, 40 MG PO HS, (Reported) Entered as Reported by: CYNTHIA LOOMIS on 11/10/22 1539 Hydrocodone/Acetaminophen (Hydrocodone-Acetamn 7.5-325/15) 7.5 Mg-325 Mg/15 Ml Solution, 15 ML PO Q6H PRN for PAIN-MODERATE (5-7), (Reported) Entered as Reported by: CYNTHIA LOOMIS on 11/10/22 1539 Lamotrigine (Lamotrigine) 100 Mg Tablet, 100 MG PO HS, (Reported) Entered as Reported by: Paula Porter on 10/27/22 1221 Ondansetron (Ondansetron Odt) 4 Mg Tab.rapdis, 4 MG PO Q4H PRN for NAUSEA/VOMITING-1ST LINE, (Reported) Entered as Reported by: CYNTHIA LOOMIS on 11/10/22 1539 Ondansetron (Ondansetron Odt) 4 Mg Tab.rapdis, 4 MG SL Q4H PRN for NAUSEA/VOMITING Prescribed by: MOHIT GOMES on 11/12/22 1219 Pnv No.122/Iron/Folic Acid ( Multi Tablet) 27 Mg Iron-800 Mcg Tablet, 1 EACH PO DAILY, (Reported) Entered as Reported by: CYNTHIA LOOMIS on 11/10/22 1539 Promethazine HCl (Promethazine Tablet) 25 Mg Tablet, 12.5 MG PO Q3HR PRN for NA USEA/VOMITING Prescribed by: MOHIT GOMES on 11/12/22 1219 Sucralfate (Sucralfate) 1 Gram/10 Ml Oral.susp, 10 ML PO QID, (Reported) Entered as Reported by: CYNTHIA LOOMIS on 11/10/22 1539 Tramadol HCl (Tramadol HCl) 50 Mg Tablet, 50-100 MG PO 4-6 HOUR PRN for PAIN Prescribed by: AILYN CLAYTON on 11/13/22 1333 [decadron 4mg] , 4 MG PO Q4H Prescribed by: MOHIT GOMES on 11/12/22 1219 Review of Systems Constitutional: no symptoms reported Musculoskeletal: joint pain Past Svpqsgw-[id number]-Zjyznt Hx Patient Social History Tobacco Use?: Yes Use of E-Cig and/or Vaping dev: Yes E-Cig or Vaping type used: Nicotine Use of E-Cig and/or Vaping Jeffrey: Current Everyday User Substance use?: Yes Substance type: Marijuana Substance frequency: Daily Alcohol Use?: No Pt feels they are or have been: No Immunizations Up To Date Tetanus Booster (TDap): Less than 5yrs Influenza Vaccine Up-to-Date: No; Not Current First/Initial COVID19 Vaccinat: none Second COVID19 Vaccination Yann: none Third COVID19 Vaccination Date: none Seasonal Allergies Seasonal Allergies: Yes Past Medical History Surgery/Hospitalization HX: HERNIA REPAIR ON 10/28/2022. 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 PYLORI) Gastroesophageal Reflux, Esophagitis, Hiatal Hernia, Gall Bladder Disease Musculoskeletal: No Endocrine: No HEENT: No Loss of Vision: Denies Hearing Impairment: Denies Cancer: No Psychosocial: Yes Sleep Difficulties, Anxiety, Bipolar, Depression Integumentary: No Blood Disorders: No Adverse Reaction/Blood Tranf: No Family Medical History SOCIAL HISTORY: -SMOKES 1 PPD OF CIGARETTES -VAPES NICOTINE DAILY -ETOH--OCCASIONAL USE -DRUGS--SMOKES MARIJUANA DAILY PAST SURGICAL HISTORY: -OVARIAN CYST REMOVAL X 2 IN 2010 AND 2011 -LAP CHOLECYSTECTOMY 03/[address] GOMES -EGD 03/[address] GOMES -HIATAL HERNIA REPAIR 10/28/[address] GOMES Physical Exam Vital Signs Vital Signs - First Documented 12/12/22 11:41 Temp 36.6 Pulse 128 Resp 18 B/P (MAP) 125/80 (95) Pulse Ox 98 O2 Delivery Room Air Capillary Refill : Less Than 3 Seconds Height, Weight, BMI Height: '" Weight: lbs. oz. kg; 29.00 BMI Method: General Appearance: WD/WN, no apparent distress Neck: supple, normal inspection Cardiovascular: regular rate, rhythm, no edema, no gallop, no JVD, no murmur Respiratory: lungs clear, normal breath sounds, no respiratory distress, no a ccessory muscle use Knees: left knee normal inspection, left knee normal range of motion, left knee pain, left knee soft tissue tenderness, left knee swelling (Mild) Neurologic/Psychiatric: alert, normal mood/affect Skin: normal color, warm/dry Progress/Results/Core Measures Results/Orders My Orders Orders - CHANCE NGUYEN APRN Knee, Left, 3 Views (12/12/22 11:49) Ibuprofen Tablet (Motrin Tablet) (12/12/22 12:30) Knee Immobilizer (12/12/22 12:44) Crutches (12/12/22 12:44) Medications Given in ED Current Medications Medications Dose Ordered Sig/Sanjay Route Start Time Stop Time Status Last Admin Dose Admin Ibuprofen 800 mg ONCE ONCE PO 12/12/22 12:30 12/12/22 12:31 DC 12/12/22 12:52 800 MG Vital Signs/I&O 12/12/22 12/12/22 11:41 13:02 Temp 36.6 Pulse 128 77 Resp 18 18 B/P (MAP) 125/80 (95) 109/67 Pulse Ox 98 98 O2 Delivery Room Air Room Air Blood Pressure Mean: 95 Progress Progress Note : Progress Note Patient seen and evaluated, resting, in recliner, no acute distress. Pain with manipulation of left knee. X-ray of left knee shows no acute osseous abnormality. Will discharge with knee immobilizer and crutches. Discharge instructions and return precautions provided. Departure Impression Primary Impression: Sprain of knee Disposition: 01 HOME, SELF-CARE Condition: Stable Departure-Patient Inst. Decision time for Depature: 12:30 Referrals: [facility] (PCP/Family) Primary Care Physician Patient Instructions: Knee Sprain (DC) Add. Discharge Instructions: Wear the knee immobilizer and use the crutches for the next few days to keep weight off the knee. Follow-up with your primary care provider if the knee pain continues after a couple of days. You may take ibuprofen 800 mg every 8 hours with food as needed for pain. You may also take 1000 mg of Tylenol every 8 hours as needed for pain. Use ice 20 minutes at a time several times a day for the next couple of days. Do not use heat for the first few days. Return for severe pain, inability to walk, or any other new, concerning, or worsening symptoms. All discharge instructions reviewed with patient and/or family. Voiced understanding. CHANCE NGUYEN APRN Dec 12, 2022 12:33
[2022-12-12 13:02] VITALS: BP 109/67
== END 2022-12-12 13:03 | disposition home or self-care (01) ==
LOC: EDUNIT# 11:22 → ER 11:25
DX: S83.92XA Sprain of unspecified site of left knee, initial encounter (principal); F17.210 Nicotine dependence, cigarettes, uncomplicated; F17.290 Nicotine dependence, other tobacco product, uncomplicated; Z28.310 Unvaccinated for COVID-19; W10.9XXA Fall (on) (from) unspecified stairs and steps, initial encounter; X50.1XXA Overexertion from prolonged static or awkward postures, initial encounter
CPT/HCPCS: 73562